=== PATIENT | female | born 1955 | race Caucasian/White ===

== ENCOUNTER → 2016-08-01 | Outpatient (CLI) | payer BC ==
[~2016-08-01] MED LIST: FLVHFA110 INH; HYDC25 PO; LEVO125T7 PO; MCR125 PO; MCRK20 PO; METO50TA7 PO; MOME50SP5 NAE
--- NOTE | 2016-08-01 16:25 | MAMMOGRAPHY REPORT ---
BILATERAL DIGITAL SCREENING MAMMOGRAM TOMOSYNTHESIS WITH CAD: 08/01/2016 TECHNIQUE: Breast tomosynthesis in addition to standard 2D mammography was performed. Current study was also evaluated with a Computer Aided Detection (CAD) system. COMPARISON: Comparison is made to exams dated: 07/30/2015 mammogram, 07/29/2014 mammogram, 05/31/2012 mammogram, 05/26/2011 mammogram, 06/11/2013 mammogram, and 05/20/2010 mammogram - [facility]. BREAST COMPOSITION: There are scattered areas of fibroglandular density in both breasts. FINDINGS: No suspicious masses, calcifications, or areas of architectural distortion are noted in e ither breast. There has been no significant interval change compared to prior exams. IMPRESSION: ACR BI-RADS CATEGORY 1: NEGATIVE There is no mammographic evidence of malignancy. A 1 year screening mammogram is recommended. The p atient will receive written notification of the results. Approximately 10% of breast cancers are not detected with mammography. A negative mammographic repor t should not delay biopsy if a clinically suggestive mass is present. Mariel Najera M.D. /:08/01/2016 14:50:53 [place] Counselor: Isabela MARSH)(Tobias), [facility] letter sent: Normal 1/2 BI-RADS Code: ACR BI-RADS Category 1: Negative
== END | disposition home or self-care (01) ==
LOC: C.MAMM 09:40
PROVIDERS: ATTEND Family Medicine
DX: Z12.31 Encounter for screening mammogram for malignant neoplasm of breast (principal)

== ENCOUNTER → 2017-08-02 | Outpatient (CLI) | payer OTHER, BC ==
[~2017-08-02] MED LIST changes: -METO50TA7 PO; +METO50TA8 PO
--- NOTE | 2017-08-02 15:21 | MAMMOGRAPHY REPORT ---
BILATERAL DIGITAL SCREENING MAMMOGRAM TOMOSYNTHESIS WITH CAD: 08/02/2017 CLINICAL HISTORY: Routine screening examination. TECHNIQUE: Breast tomosynthesis in addition to standard 2D mammography was performed. Current study was also evaluated with a Computer Aided Detection (CAD) system. COMPARISON: Comparison is made to exams dated: 08/01/2016 mammogram, 07/30/2015 mammogram, 07/29/2014 m ammogram, 06/11/2013 mammogram, 05/31/2012 mammogram, and 05/26/2011 mammogram - [facility]. BREAST COMPOSITION: There are scattered areas of fibroglandular density in both breasts. FINDINGS: There are possible faint microcalcifications in the upper outer posterior left breast, for which additional spot magnification views are recommended. There are stable postsurgical changes in the right upper outer quadrant posteriorly with linear metal lic densities remaining in place. No other suspicious mass, architectural distortion or cluster of mi crocalcifications is seen. IMPRESSION: ACR BI-RADS CATEGORY 0: INCOMPLETE EVALUATION: NEED ADDITIONAL IMAGING EVALUATION The possible faint microcalcifications in the left upper outer breast need additional evaluation. The patient will be called to schedule an appointment. Approximately 10% of breast cancers are not detected with mammography. A negative mammographic report should not delay biopsy if a clinically suggestive mass is present. Krystina Adams M.D. ay/:08/02/2017 11:00:11 Slipper Maker: Lacey MARSH)(Tobias), [facility] letter sent: Addl Imaging 0 BI-RADS Code: ACR BI-RADS Category 0: Incomplete Evaluation: Need Additional Imaging Evaluation
== END | disposition home or self-care (01) ==
LOC: C.MAMM 09:36
PROVIDERS: ATTEND Family Medicine
DX: Z12.31 Encounter for screening mammogram for malignant neoplasm of breast (principal); R92.8 Other abnormal and inconclusive findings on diagnostic imaging of breast

== ENCOUNTER → 2017-08-16 | Outpatient (CLI) | payer OTHER, BC ==
--- NOTE | 2017-08-16 15:57 | MAMMOGRAPHY REPORT ---
UNILATERAL LEFT DIGITAL DIAGNOSTIC MAMMOGRAM: 08/16/2017 CLINICAL HISTORY: Callback from screening mammogram for left breast calcifications. TECHNIQUE: Spot magnification left CC and ML views were obtained. COMPARISON: Comparison is made to exams dated: 08/02/2017 mammogram, 08/01/2016 mammogram, 07/30/2015 m ammogram, 07/29/2014 mammogram, 06/11/2013 mammogram, and 05/31/2012 mammogram - [facility]. BREAST COMPOSITION: There are scattered areas of fibroglandular density in the left breast. FINDINGS: Spot magnification views of the left breast demonstrate faint loosely grouped calcificatio ns within the left upper outer quadrant, best seen on the cc view. When compared to prior exams, the calcifications do not appear significantly changed compared to the 2016 and 2015 exams and may also be stable compared to older prior exams including the 2012 exam although it is difficult to make an a ccurate comparison due to technical differences. The calcifications are probably benign and follow-up spot magnification views are recommended in 6 months. IMPRESSION: ACR-BI-RADS CATEGORY 3: PROBABLY BENIGN Faint loosely grouped punctate calcifications within the left upper outer quadrant are likely stable dating back to at least the 2015 exam and are probably benign. Recommend follow-up diagnostic tomosy nthesis mammograms of the left breast in 6 months to confirm stability on spot magnification views. The patient has been verbally notified of the results. Approximately 10% of breast cancers are not detected with mammography. A negative mammographic report should not delay biopsy if a clinically suggestive mass is present. Mariel Najera M.D. ah/:08/16/2017 11:41:08 Gel Coater: Rahel KAUR(Munira)(M), [facility] letter sent: Follow Up Recommended 3 BI-RADS Code: ACR-BI-RADS Category 3: Probably Benign
== END | disposition home or self-care (01) ==
LOC: C.MAMM 10:41
PROVIDERS: ATTEND Family Medicine
DX: R92.8 Other abnormal and inconclusive findings on diagnostic imaging of breast (principal); R92.1 Mammographic calcification found on diagnostic imaging of breast

== ENCOUNTER 2023-07-28 10:29 | Inpatient (IN) ==
--- NOTE | 2023-07-28 11:06 | Emergency Department Note ---
Impression & Plan Sepsis due to urinary tract infection, Fever, Atrial tachycardia ED Provider Note NAME: MOUNIKA SHEPPARD AGE: 68 SEX: F : 1955 ARRIVES VIA: Walk-In INFORMANT: Patient ED PROVIDER(S): Escobar Mccann DO CHIEF COMPLAINT: fever and shakes HPI: Patient is a 68-year-old female immune compromised on methotrexate that presents to the ER for dysuria, urgency, and overflow and incontinence. Patient denies any headache or change in vision. Admits to diffuse shaking chills. She was prescribed Macrobid yesterday. Symptoms have been getting worse. Feeling hot and cold. Does have lower abdominal pain. Feels very nausea but no vomiting. Additional history obtained from who notes that she is taking Macrobid as an antibiotic. ADDITIONAL HISTORY OBTAINED: Per HPI Chronic Medical/Social Conditions Affecting Care: Per HPI PAST MEDICAL HISTORY:See Below PAST SURGICAL HISTORY:See Below FAMILY HISTORY:See Below SOCIAL HISTORY:See Below HOME MEDICATIONS:See Below ALLERGIES:See Below VITALS:See Below PHYSICAL EXAMINATION: GENERAL: Sitting up in bed, alert, well appearing, well nourished, no distress, non-toxic EYE EXAM: normal conjunctiva. OROPHARYNX: mucous membranes are moist NECK: supple, no nuchal rigidity, no adenopathy, non-tender LUNGS: Clear to auscultation. Normal chest wall mechanics HEART: no murmurs, S1 normal and S2 normal ABDOMEN: abdomen soft, non-tender, normo-active bowel sounds, no masses, no rebound or guarding. UPPER EXTREMITIES: upper extremities are grossly normal. LOWER EXTREMITIES: No pitting edema. NEURO EXAM: Normal sensorium, cranial nerves II-XII grossly intact, normal speech, no gross weakness of arms, no gross weakness of legs. MEDICAL DECISION MAKING: Patient is a 68-year-old female who presents the ER for urinary symptoms. Upon arrival she is found to be febrile and tachycardic with a heart rate in the 140s. IV was established blood work is obtained. Labs show no significant leukocytosis or anemia. BMP was fairly unremarkable. Slightly elevated lactate. Magnesium at 1.3. LFTs was unremarkable. Pro-Jesus 1.6. UA was not obtained upon admission. It did eventually result and is unremarkable. Patient will likely need additional workup as that has finally resulted and possibly CT as she was febrile tacky with lower pelvic symptoms. Chest x-ray was unremarkable. Patient was covered with IV antibiotics which was IV cefepime as well as oral Tylenol. Repeat lactate trended down from 2.2 to 1.8. Consults/Care Managements Discussions: Per [facility] Triage Nursing notes reviewed. Limited review of prior medical records performed Vital Signs: reviewed and remarkable for febrile and tachy Differential diagnosis: Differential diagnosis includes etiologies such as sepsis, UTI, pneumonia, metabolic, electrolyte abnormalities, cardiac sources, intracerebral event, toxicologic, neurological, as well as others were entertained. ER treatment provided: See below Diagnostics interpreted by me include EKG and cardiac monitoring as listed below: -Cardiac Monitoring: An order was placed for continuous cardiac monitoring. The monitor shows a rate of [] with [] rhythm. -ECG: Sinus rhythm rate of 110 Normal axis PVCs QTc [address] wave changes in the lateral leads T wave inversions in the inferior leads -Laboratory studies:Interpreted by me as stated above in MDM and shown below. Imaging studies: Xrays: As interpreted by me: Portable AP upright 1 view of the chest shows no focal infiltrate CTs show: none Procedures:none Critical Care: None Past Med/Surg History Medical History Sepsis due to urinary tract infection IBS (irritable bowel syndrome) possible. History of COVID-06 June 2021 : mild cold symptoms, loss of taste & smell, fatigue. History of anesthesia reaction difficulty waking/low BP Hypothyroidism Glaucoma bilt eyes Hypertension Heart palpitations Asthma inhaler prn Hives of unknown origin hx - no recent problems Rheumatoid arthritis Surgical History Hx of left cataract extraction Hx of oral surgery dental implant/post insertion (09/2021) History of dilatation and curettage (~2019) History of lumpectomy of right breast History of left breast biopsy benign History of right breast biopsy benign History of gynecologic surgery D&E History of bilateral carpal tunnel release History of colonoscopy History of tooth extraction Family History Father Renal failure Colorectal cancer Family history of diabetes mellitus Mother Non-Hodgkin lymphoma Family history of diabetes mellitus Aunt Breast cancer maternal Other No family history of adverse response to anesthesia Denies family history of Ovarian cancer Social History Smoking Status: Never smoker Second Hand Exposure: Yes (father and smoked); Do You Dip or Chew Tobacco: No; Hx Alcohol Use: Yes Alcohol type: wine Hx Substance Use: No Preferred Language: [place] Islander Communication Ability: Effective Stereo Compiler Required: No Beliefs That Will Affect Care: None Current Living Situation: Spouse Feels Safe at Home: Yes Assistive Devices: Glasses Allergies Allergies Allergy/AdvReac Type Severity Reaction Status Date / Time Penicillins Allergy Mild Rash Verified 07/28/23 13:32 sulfamethoxazole Allergy Mild rash Verified 07/28/23 13:32 trimethoprim Allergy Mild rash Verified 07/28/23 13:32 NELLI Inhibitors AdvReac Mild cough Verified 07/28/23 13:32 Home Meds Home Medications Medication Instructions Recorded Confirmed cetirizine 10 mg tablet (Zyrtec) 10 mg PO DAILY PRN Allergy Symptoms 02/24/18 07/28/23 folic acid 1 mg tablet 1 mg PO [id number] 02/24/18 07/28/23 methotrexate sodium 2.5 mg tablet 15 mg PO WK 02/24/18 07/28/23 metoprolol succinate 50 mg 50 mg PO QAM 02/24/18 07/28/23 tablet,extended release 24 hr cholecalciferol (vitamin D3) 25 25 mcg PO QAM 02/15/22 07/28/23 mcg (1,000 unit) tablet (Vitamin D3) [id number] C 250 2 tab PO QAM 02/15/22 07/28/23 mg-herbal no.124 11.66 mg chewable tablet (Airborne Gummy) levothyroxine 100 mcg tablet 100 mcg PO QAM 07/28/23 07/28/23 nitrofurantoin 100 mg PO BID 07/28/23 07/28/23 monohydrate/macrocrystals 100 mg capsule omega [id number]-fish oil 900 1 cap PO DAILY 07/28/23 07/28/23 mg-1,400 mg capsule,delayed release Results & Data (ED) Vital Signs Vital Signs - 24 hr 07/28/23 10:38 07/28/23 12:43 07/28/23 12:43 Temperature 37.8 C H Temperature Source Oral Pulse Rate 129 H 118 H Pulse Rate [Right Finger] 114 H Pulse Rate from SpO2 Sensor Respiratory Rate 16 22 16 Respiratory Effort / Characteristics Non-Labored Non-Labored Respiratory Depth Normal Normal Blood Pressure 163/82 H Blood Pressure [Right Arm] 127/86 Blood Pressure Mean 109 Blood Pressure Mean [Right Arm] 99 Pulse Oximetry 97 97 97 Oxygen Delivery Method Room Air Room Air Room Air Sepsis Recent Fever Within 48 Hours No Sepsis New/Unexplained Change in Mental Status N/A Sepsis Action Taken by Nursing No Action Required 07/28/23 12:45 07/28/23 12:46 07/28/23 12:52 Temperature Temperature Source Pulse Rate 116 H 109 H Pulse Rate [Right Finger] Pulse Rate from SpO2 Sensor Respiratory Rate 20 Respiratory Effort / Characteristics Respiratory Depth Blood Pressure 127/86 Blood Pressure [Right Arm] Blood Pressure Mean 89 Blood Pressure Mean [Right Arm] Pulse Oximetry Oxygen Delivery Method Sepsis Recent Fever Within 48 Hours Sepsis New/Unexplained Change in Mental Status Sepsis Action Taken by Nursing 07/28/23 13:00 Temperature Temperature Source Pulse Rate 112 H Pulse Rate [Right Finger] Pulse Rate from SpO2 Sensor 96 H Respiratory Rate 23 Respiratory Effort / Characteristics Respiratory Depth Blood Pressure Blood Pressure [Right Arm] Blood Pressure Mean Blood Pressure Mean [Right Arm] Pulse Oximetry 96 Oxygen Delivery Method Sepsis Recent Fever Within 48 Hours Sepsis New/Unexplained Change in Mental Status Sepsis Action Taken by Nursing Laboratory Data 07/28/23 11:25 07/28/23 11:25 Lab Results 07/28/23 07/28/23 Range/Units 11:22 11:25 WBC 9.48 (4.8-10.8) K/ul RBC 4.20 (4.20-5.40) M/uL Hgb 13.1 (12.0-16.0) g/dl Hct 37.9 (37.0-47.0) % MCV 90.2 (80.0-100.0) fL MCH 31.2 (25.0-34.0) pg MCHC 34.6 (32.0-36.0) g/dL RDW Std Deviation 45.3 (36.4-46.3) fL RDW Coeff of Amy 14.0 (11.5-14.5) % Plt Count 140 (130-400) K/uL MPV 10.1 (9.4-12.4) fL Immature Gran % (Auto) 0.6 % Neut % (Auto) 92.2 % Lymph % (Auto) 1.8 % Ralls % (Auto) 4.7 % Eos % (Auto) 0.4 % Baso % (Auto) 0.3 % Neut # (Auto) 8.73 H (1.40-6.50) K/uL Lymph # (Auto) 0.17 L (1.20-3.40) K/uL Ralls # (Auto) 0.45 (0.11-0.59) K/uL Eos # (Auto) 0.04 (0.00-0.50) K/uL Baso # (Auto) 0.03 (0.00-0.20) K/uL Immature Gran # (Auto) 0.06 (0.01-0.20) K/uL Sodium 136 (136-145) mmol/L Potassium 3.3 L (3.5-5.1) mmol/L Chloride 100 (98-107) mmol/L Carbon Dioxide 28 (21-32) mmol/L Anion Gap 8 (3-11) BUN 13 (6-23) mg/dl Creatinine 0.62 (0.6-1.2) mg/dl Est Cr Clr Drug Dosing 89.0 ml/min Est GFR ( Amer) 106.6 ml/min Est GFR (Non-Af Amer) 92.0 ml/min BUN/Creatinine Ratio 21.0 H (10-20) Glucose 204 H (70-99(Fasting)) mg/dl Lactate 2.2 H* (0.4-2.0) mmol/L Calcium 8.8 (8.6-10.3) mg/dl Magnesium 1.3 L (1.7-2.4) mg/dl Total Bilirubin 1.8 H (0.2-1.0) mg/dl Direct Bilirubin 0.3 H (0-0.2) mg/dl AST 17 (13-39) U/L ALT 14 (7-52) U/L Alkaline Phosphatase 74 (34-104) U/L Troponin I High Sens 6.1 (0-14) pg/ml Total Protein 6.9 (6.0-8.3) gm/dl Albumin 4.3 (3.4-5.0) gm/dl Procalcitonin 1.68 H (0-0.5) ng/ml Adenovirus (PCR) Not Detected (NotDetected) B. pertussis DNA (PCR) Not Detected (NotDetected) B.parapertussis DNA PCR Not Detected (NotDetected) C. pneumoniae DNA (PCR) Not Detected (NotDetected) Coronavirus OC43 (PCR) Not Detected (NotDetected) Coronavirus HKU1 (PCR) Not Detected (NotDetected) Coronavirus 229E (PCR) Not Detected (NotDetected) SARS-CoV-2 (PCR) Not Detected (NotDetected) Coronavirus NL63 (PCR) Not Detected (NotDetected) Human Metapneumovir PCR Not Detected (NotDetected) Influenza Type A (PCR) Not Detected (NotDetected) Influenza Type B (PCR) Not Detected (NotDetected) M. pneumoniae (PCR) Not Detected (NotDetected) Parainfluenza 1 (PCR) Not Detected (NotDetected) Parainfluenza 2 (PCR) Not Detected (NotDetected) Parainfluenza 3 (PCR) Not Detected (NotDetected) Parainfluenza 4 (PCR) Not Detected (NotDetected) RSV (PCR) Not Detected (NotDetected) Entero/Rhino (PCR) Not Detected (NotDetected) Administered Medications Discontinued Medications Acetaminophen (Acetaminophen 325 Mg Tab) 650 mg PO NOW STA Stop: 07/28/23 11:07 Last Admin: 07/28/23 12:31 Dose: 650 mg Documented By: SONALI Cefepime HCl (Maxipime) 2,000 mg in 20 mls @ 5 mls/min IV NOW STA; Protocol Stop: 07/28/23 11:05 Last Admin: 07/28/23 12:32 Dose: 5 mls/min Documented By: SONALI Imaging Data Radiologist's Impression: Chest X-Ray 07/28/23 10:47 XR chest 1V portable HISTORY: 68 years-old Female Sepsis acute urinary tract infection COMPARISON: None TECHNIQUE: AP view the chest FINDINGS: Cardiomediastinal and hilar silhouettes are within normal limits. No pneumothorax, pleural effusion or airspace consolidation. Bones appear grossly intact. IMPRESSION: No acute process. ACT 112: Negative or not required by law. The above report was generated using voice recognition software. It may contain grammatical, syntax or spelling errors. Electronically signed by: Boaz Kumar M.D. 07/28/2023 11:28 AM Discharge Plan Visit Data Chief Complaint: Illness Stated Complaint: CHEST PRESSURE, CHILLS, NAUSEA ED Provider: Escobar Mccann Discharge Problem: Sepsis due to urinary tract infection, Fever, Atrial tachycardia Patient Disposition: Admitted As Inpatient Discharge Instructions Interventions: ED Discharge Assessment Last Done: 07/28/23 15:05 Discharge Problem: Fever Qualifiers: Fever type: unspecified Qualified Code(s): R50.9 - Fever, unspecified
--- NOTE | 2023-07-28 11:29 | XRay Report ---
XR chest 1V portable HISTORY: 68 years-old Female Sepsis acute urinary tract infection COMPARISON: None TECHNIQUE: AP view the chest FINDINGS: Cardiomediastinal and hilar silhouettes are within normal limits. No pneumothorax, pleural effusion o r airspace consolidation. Bones appear grossly intact. IMPRESSION: No acute process. ACT 112: Negative or not required by law. The above report was generated using voice recognition software. It may contain grammatical, syntax o r spelling errors. Electronically signed by: Boaz Kumar M.D. 07/28/2023 11:28 AM
[2023-07-28 12:29] LABS: Adenovirus PCR Not Detected (NotDetected); Bordetella parapertussis PCR Not Detected (NotDetected); Bordetella pertussis PCR Not Detected (NotDetected); Chlamydia pneumoniae PCR Not Detected (NotDetected); Coronavirus 229E PCR Not Detected (NotDetected); Coronavirus CoV-2 (COVID19)PCR Not Detected (NotDetected); Coronavirus HKU1 PCR Not Detected (NotDetected); Coronavirus NL63 PCR Not Detected (NotDetected); Coronavirus OC43PCR Not Detected (NotDetected); Human Metapneumovirus PCR Not Detected (NotDetected); Influenza A PCR Not Detected (NotDetected); Influenza B PCR Not Detected (NotDetected); Mycoplasma pneumoniae PCR Not Detected (NotDetected); Parainfluenza Virus 1 PCR Not Detected (NotDetected); Parainfluenza Virus 2 PCR Not Detected (NotDetected); Parainfluenza Virus 3 PCR Not Detected (NotDetected); Parainfluenza Virus 4 PCR Not Detected (NotDetected); Respiratory Syncytial VirusPCR Not Detected (NotDetected); Rhinovirus/Enterovirus PCR Not Detected (NotDetected)
[2023-07-28] MEDS: ACETAMINOPHEN 325 MG TAB PO STA (12:31)
[2023-07-28] MEDS: CEFEPIME 2,000 MG/20 ML VIAL IV STA (12:32)
[2023-07-28 12:52] LABS: Albumin Level 4.3 gm/dl (3.4-5.0); Bilirubin Direct 0.3 mg/dl (0-0.2); Bilirubin,Total 1.8 mg/dl (0.2-1.0); Calcium 8.8 mg/dl (8.6-10.3); Est GFR (African American) 106.6 ml/min; Magnesium 1.3 mg/dl (1.7-2.4); Potassium 3.3 mmol/L (3.5-5.1); Total Protein 6.9 gm/dl (6.0-8.3)
[2023-07-28 12:57] LABS: Troponin I High Sensitivity 6.1 pg/ml (0-14)
[2023-07-28 13:05] LABS: Hematocrit (blood only) 37.9 % (37.0-47.0); Hemoglobin 13.1 g/dl (12.0-16.0); Mean Corpuscular Hemoglobin 31.2 pg (25.0-34.0); Mean Corpuscular Hgb Conc 34.6 g/dL (32.0-36.0); Mean Corpuscular Volume 90.2 fL (80.0-100.0); Mean Platelet Volume 10.1 fL (9.4-12.4); Platelet Count 140 K/uL (130-400); RDW Standard Deviation 45.3 fL (36.4-46.3); White Blood Count 9.48 K/ul (4.8-10.8)
[2023-07-28] MEDS ORDERED: ONDANSETRON INJ 2 MG/ML 2 ML VIAL IV PRN (13:14)
[2023-07-28] MEDS ORDERED: MAGNESIUM HYDROXIDE SUSP 30 ML UDC PO PRN (13:14)
[2023-07-28] MEDS ORDERED: ALUMINUM/MAGNESIUM SUSP 30 ML UDC PO PRN (13:14)
[2023-07-28] MEDS ORDERED: POLYETHYLENE (MIRALAX) 17 GM PACK PO PRN (13:14)
[2023-07-28 13:17] LABS: Basophils # (auto) 0.03 K/uL (0.00-0.20); Basophils % (auto) 0.3 %; Eosinophils # (auto) 0.04 K/uL (0.00-0.50); Eosinophils % (auto) 0.4 %; Immature Granulocytes # (auto) 0.06 K/uL (0.01-0.20); Immature Granulocytes % (auto) 0.6 %; Lymphocytes # (auto) 0.17 K/uL (1.20-3.40); Lymphocytes % (auto) 1.8 %; Monocytes # (auto) 0.45 K/uL (0.11-0.59); Monocytes % (auto) 4.7 %; Neutrophils # (auto) 8.73 K/uL (1.40-6.50); Neutrophils % (auto) 92.2 %
--- NOTE | 2023-07-28 13:26 | History & Physical Report ---
Date of Service July 28, 2023 Assessment & Plan (1) Sepsis due to urinary tract infection: (2) Hypomagnesemia: (3) Hypocalcemia: (4) Hypertension: (5) Hypokalemia: (6) Rheumatoid arthritis: (7) Diabetes mellitus type 2, noninsulin dependent: (8) TAMAR (obstructive sleep apnea): (9) Hypothyroidism: Plan Ms. Hardy is a 68 year old female that presents to the ED with reports of feeling nauseated and having chills; felt like she had a fever. Her found her sitting in the shower trying to get 'warmed up'. She did not eat anything this morning. She only took her thyroid medication today. She went to [facility] yesterday with signs and symptoms of urinary tract infection was prescribed Macrobid for 7 days. She took her Macrobid last night and went to bed fine. This morning, she reports feeling nauseous, no vomit ing.Historically, she has been experiencing incontinence and saw UroGyn at [facility] and proceeded with a rectal and bladder prolapse. Over the last 2-3 weeks, she notices that her symptoms have become worse. She reports more incontinence with short walking . Upon arrival to the ED she was tachycardic and febrile with heart rate up to 122. She received fluid resuscitation 2 L with response heart rate down to 110. Additional past medical history includes rheumatoid arthritis (diagnosed 2017; takes Methotrexate), HTN, hypothyroidism .She drinks one cup of coffee per day. NO history of heart attack or stroke. She does admit that she does not follow her doctors recommendations too well.In the ED hypok+ 3.3, hypomag 1.3, bio fire negative. Blood cultures and urinalysis pending. Lactate 2.2, WBC 9.48. ECG NSR with Borderline criteria for Inferior infarct are now Present compared with ECG in 2019. T wave inversion now evident in Anterior leads. Patient is presenting with urosepsis symptoms. She does meet sepsis criteria with tachycardia, fevers, elevated lactate and procal levels. Will place on IV antibiotics and adjust based on urine culture and blood culture. Consider abdominal/pelvis CT if no improvement. Patient reports significant personal stress and she does have complaints of mild intermittent anterior chest wall pressure with left shoulder radiation. Will obtain a troponin to initiate cardiac workup. ECG NSR with Borderline criteria for Inferior infarct are now Present compared with ECG in 2019. T wave inversion now evident in Anterior leads Patient appears normal sinus rhythm on monitor however I can appreciate an S3/S4 on auscultation; will repeat ECG; ECG indicates . Additionally replace electrolyte imbalance, patient serum glucose this morning was 204 without breakfast and A1c yesterday was 7.9. Patient does not take any antidiabetic medications. Will place on a sliding scale coverage while here with diabetes e ducator consult. Urosepsis: Acute seen as outpatient 07/27 and started on Macrobid, last dose scheduled to be 08/03 Meets sepsis criteria with tachycardia, febrile, elevated lactate No leukocytosis; lactate 2.2 trended down to 1.8 with resuscitation Procalcitonin elevated 1.68 suggestive of hyper inflammatory phase of sepsis, along with lactate Blood cultures pendingL Received 2LNSB in ED; after second liter will place on gentle maint. fluids. Was started on Cefepime in ED; switch to Rocephin and adjust based on culture results Did receive a dose of antibiotics prior to urine culture being obtained If no improvement consider abdomen/pelvis CT Electrolyte abnormalities: Acute Hypokalemia; Serum K+ 3.3; replete with 40 mEq p.o. Hypomagnesemia; serum Mg+1.3; will replace with 4 G IV and check with AM labs Hypocalcemia; serum Calcium 7.7; albumin 4.3; replace with 1G Ca+ Gluconate and recheck in AM. Check Vitamin D level. Diabetes Mellitus: Chronic Last A1C : 7.9 Was doing diet modifications for months, and has lost weight was on Glipizide for a few months but stopped taking it Place on SSI and arrange for art educator HTN: Chronic Takes metoprolol; continue Does have S3 appreciated on exam; does not report palpitations ECG suggestive of new inferior changes compared to 2019 anterior chest pain has resolved; troponin negative will obtain repeat ECG Rheumatoid arthritis: Chronic Follows with Dr. Qureshi with rheumatology Takes methotrexate every Monday; taken today; will hold moving forward due to sepsis and immunocompromised 07/27/23; LFTs; AST 19, ALT 17, AlkPhos 89 Hypothyroidism: Chronic Takes levothyroxine; continue Last TSH 04/20/23: 3.32; will obtain one while here. TAMAR: Chronic Just picked up her CPAP yesterday after her recent sleep study Arrange for CPAP here in hospital Disposition: PCP: Dr. Spencer Code Status: Full Code VTE Prophylaxis: Teds/SCDs for now I spent a total of 88 minutes coordinating, documenting, and providing care for this patient excluding time spent in the performance of separately billed services. All of the aforementioned completed while collaborating with the assigned attending physician for a full treatment plan. Please see their addendum for further details. History of Present Illness Chief Complaint: dysuria Primary Care Provider: Eric Spencer DO Ms. Hardy is a 68 year old female that presents to the ED with reports of feeling nauseated and having chills; felt like she had a fever with some chest pressure with radiation into her left shoulder. Her found her sitting in the shower trying to get 'warmed up'. She did not eat anything this morning. She only took her thyroid medication today. She went to [facility] yesterday with signs and symptoms of urinary tract infection was prescribed Macrobid for 7 days. She took her Macrobid last night and went to bed fine. This morning, she reports feeling nauseous, no vomiting. Historically, she has been experiencing incontinence and saw UroGyn at [facility] and proceeded with a rectal and bladder prolapse 'tack up' in Apr 2023. After the procedure, she had an indwelling catheter for three days. She was frustrated with her slow improvement. Over the last 2-3 weeks, she notices that her symptoms have become worse. She reports more incontinence with short walking . Upon arrival to the ED she was tachycardic and febrile with heart rate up to 122. She received fluid resuscitation 2 L with response heart rate down to 110. Additional past medical history includes rheumatoid arthritis (diagnosed 2016; takes Methotrexate), HTN, hypothyroidism .She drinks one cup of coffee per day. NO history of heart attack or stroke. She does admit that she does not follow her doctors recommendations too well. In the ED hypok+ 3.3, hypomag 1.3, bio fire negative. Blood cultures and urinalysis pending. Lactate 2.2, WBC 9.48. ECG NSR with Borderline criteria for Inferior infarct are now Present compared with ECG in 2019. T wave inversion now evident in Anterior leads. Reviewed documentation as an outpatient and a urine culture was sent yesterday however no results returned as of yet. Pt denies PRESTON, dizziness, SOB, palpitations, abdominal pain, tenderness, recent falls or trauma. On examination, Pt AAOx4 and able to answer questions appropriately, CN II-XII grossly intact, lung sounds CTA, (+) lower abdomen tenderness, euvolemic on exam. Patient is presenting with urosepsis symptoms. She does meet sepsis criteria with tachycardia, fevers, elevated lactate and procal levels. Will place on IV antibiotics and adjust based on urine culture and blood culture. Consider abdominal/pelvis CT if no improvement. Patient reports significant personal stress and she does have complaints of mild intermittent anterior chest wall pressure with left shoulder radiation. Will obtain a troponin to initiate cardiac workup. ECG NSR with Borderline criteria for Inferior infarct are now Present compared with ECG in 2019. T wave inversion now evident in Anterior leads Patient appears normal sinus rhythm on monitor however I can appreciate an S3/S4 on auscultation; will repeat ECG; ECG indicates . Additionally replace electrolyte imbalance, patient serum glucose this morning was 204 without breakfast and A1c yesterday was 7.9. Patient does not take any antidiabetic medications. Will place on a sliding scale coverage while here with art educator consult. Patient will be admitted for further evaluation and management. Please see A/P for further details. Allergies Allergy/AdvReac Type Severity Reaction Status Date / Time Penicillins Allergy Mild Rash Verified 07/28/23 13:32 sulfamethoxazole Allergy Mild rash Verified 07/28/23 13:32 trimethoprim Allergy Mild rash Verified 07/28/23 13:32 NELLI Inhibitors AdvReac Mild cough Verified 07/28/23 13:32 Home Medications Medication Instructions Recorded Confirmed Type cetirizine 10 mg tablet (Zyrtec) 10 mg PO DAILY PRN Allergy Symptoms 02/24/18 07/28/23 History folic acid 1 mg tablet 1 mg PO [id number] 02/24/18 07/28/23 History methotrexate sodium 2.5 mg tablet 15 mg PO WK 02/24/18 07/28/23 History metoprolol succinate 50 mg 50 mg PO QAM 02/24/18 07/28/23 History tablet,extended release 24 hr cholecalciferol (vitamin D3) 25 25 mcg PO QAM 02/15/22 07/28/23 History mcg (1,000 unit) tablet (Vitamin D3) [id number] C 250 2 tab PO QAM 02/15/22 07/28/23 History mg-herbal no.124 11.66 mg chewable tablet (Airborne Gummy) levothyroxine 100 mcg tablet 100 mcg PO QAM 07/28/23 07/28/23 History nitrofurantoin 100 mg PO BID 07/28/23 07/28/23 History monohydrate/macrocrystals 100 mg capsule omega 4-iar-ymo-fish oil 900 1 cap PO DAILY 07/28/23 07/28/23 History mg-1,400 mg capsule,delayed release Past Med/Surg History Medical History (Updated 07/28/23 @ 17:38 by ANALI Callahan) Diabetes mellitus type 2, noninsulin dependent Hypokalemia Hypomagnesemia Hypocalcemia TAMAR (obstructive sleep apnea) Sepsis due to urinary tract infection IBS (irritable bowel syndrome) possible. History of COVID-06 June 2021 : mild cold symptoms, loss of taste & smell, fatigue. History of anesthesia reaction difficulty waking/low BP Hypothyroidism Glaucoma bilt eyes Hypertension Heart palpitations Asthma inhaler prn Hives of unknown origin hx - no recent problems Rheumatoid arthritis Surgical History Hx of left cataract extraction Hx of oral surgery dental implant/post insertion (09/2021) History of dilatation and curettage (~2018) History of lumpectomy of right breast History of left breast biopsy benign History of right breast biopsy benign History of gynecologic surgery D&E History of bilateral carpal tunnel release History of colonoscopy History of tooth extraction Family History Father Renal failure Colorectal cancer Family history of diabetes mellitus Mother Non-Hodgkin lymphoma Family history of diabetes mellitus Aunt Breast cancer maternal Other No family history of adverse response to anesthesia Denies family history of Ovarian cancer Social History Smoking Status: Never smoker Second Hand Exposure: Yes (father and smoked); Do You Dip or Chew Tobacco: No; Hx Alcohol Use: Yes Alcohol type: wine Hx Substance Use: No Preferred Language: Greek Communication Ability: Effective 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 Beliefs That Will Affect Care: None Current Living Situation: Spouse Feels Safe at Home: Yes Assistive Devices: Glasses Review of Systems Review of Systems: Neuro: (-) Falls, trauma, slurred speech HEENT: (-) PRESTON, dizziness, dysphagia, visual or auditory changes CV: (-) CP, palpitations, swelling Resp: (-) SOB GI: (-) appetite changes, N/V/D, bowel changes : (-) urinary changes Skin: (-) rashes Psych: (-) anxiety, depression Physical Exam Physical Exam: Neuro: AAOx4, PERRLA, no aphagia, memory changes, CNII-XII grossly intact HEENT: head normocephalic, moist mucus membranes CV: S1/S2, (-) M/G/R, (-) edema, cap refill < 3 seconds Resp: Lungs CTA in all alvarenga. On RA GI: Abdomen LLQ/RLQ tender to palptation, S/ND, Ax4 bowel sounds, (-) CVA tenderness Musculoskeletal: 5/5 B/L UE strength, 5/5 B/L LE strength. No gait disturbance Skin: (-) rashes , (-) erythema. Psych: euthymic mood Results & Data Results & Data Vital Signs (Past 12 Hours) Vital Signs Temp Pulse Pulse Resp BP BP Pulse Ox 07/28/23 12:52 109 H 07/28/23 12:43 118 H 16 97 07/28/23 12:43 114 H 22 127/86 97 07/28/23 10:38 37.8 C H 129 H 16 163/82 H 97 O2 Del Method 07/28/23 12:52 07/28/23 12:43 Room Air 07/28/23 12:43 Room Air 07/28/23 10:38 Room Air Laboratory Results Short CBC 07/28/23 Range/Units 11:25 WBC 9.48 (4.8-10.8) K/ul Hgb 13.1 (12.0-16.0) g/dl Hct 37.9 (37.0-47.0) % Plt Count 140 (130-400) K/uL BMP 07/28/23 11:25 Sodium 136 Potassium 3.3 L Chloride 100 Carbon Dioxide 28 BUN 13 Creatinine 0.62 Glucose 204 H Calcium 8.8 Liver Function 07/28/23 Range/Units 11:25 Total Bilirubin 1.8 H (0.2-1.0) mg/dl Direct Bilirubin 0.3 H (0-0.2) mg/dl AST 17 (13-39) U/L ALT 14 (7-52) U/L Alkaline Phosphatase 74 (34-104) U/L Albumin 4.3 (3.4-5.0) gm/dl Diagnostic Findings Chest X-Ray 07/28/23 10:47 XR chest 1V portable HISTORY: 68 years-old Female Sepsis acute urinary tract infection COMPARISON: None TECHNIQUE: AP view the chest FINDINGS: Cardiomediastinal and hilar silhouettes are within normal limits. No pneumothorax, pleural effusion or airspace consolidation. Bones appear grossly intact. IMPRESSION: No acute process. ACT 112: Negative or not required by law. The above report was generated using voice recognition software. It may contain grammatical, syntax or spelling errors. Electronically signed by: Boaz Kumar M.D. 07/28/2023 11:28 AM Code Status & VTE Plan Code Status Full code in the event of cardiac respiratory arrest VTE Prophylaxis Plan VTE Prophylaxis will be ordered: Yes Supervising Physician Co-Signing Physician Notes I have seen and examined the patient and have discussed the case with the provider above. I have reviewed the advanced practitioner's documentation, and I agree with, and take responsibility for that plan of care. 68-year-old female presents with fevers and chills with clinical picture consistent with sepsis possibly secondary to urinary tract infection. UTI symptoms including urinary urgency have been ongoing for the past 3 weeks with a worsening for the past 24 hours. She was seen in urgent care yesterday with urine culture performed but still pending. She was resuscitated in the ER and appears hemodynamically stable and improved. She is in no acute distress. She does have a history of rheumatoid arthritis and is on methotrexate for this. No recent rheumatoid flare reported. History of bladder tacking in April 2023 as noted above. On exam she is obese, mentating clearly and oxygenating well on room air. She does have some mild suprapubic tenderness but otherwise physical is as noted above. is at bedside and assist with history. Lactate improved from 2.2-1.8 with IV fluid resuscitation. Mag is 1.3 and was replaced. Total bilirubin mildly elevated with no other evidence of obstructive biliary process ongoing. Would trend in a.m. as planned. Procalcitonin elevation is supportive of sepsis. Patient did start antibiotics already and we may be getting a false negative UA as a result of this. Will await urine culture results from outpatient visit yesterday which are still pending. Patient with lower risk of Pseudomonas, continue Rocephin as noted above. She did receive her methotrexate today but would hold this now. Other history as noted above. I spent a total [id number] coordinating, documenting, and providing care for this patient excluding time spent in the performance of separately billed services Komal Finney DO [facility]
--- OUTSIDE RECORDS SUMMARY | 2023-07-28 14:02 | External Medical Summary | Summary of Care ---
Author Name Unknown Organization [facility] Address [address] [place] [address] Phone [phone] Care Team Providers Care Dispersion Mixer Name Role Phone Eric Spencer DO Primary Care Provider [phone] Reason for Visit * Reason Comments Outpatient Testing Encounter Details Date Type Department Care Team (Late st Contact Info) Description 07/27/2023 3:10 PM EST Laboratory Laboratory [facility] [place] [address] [place] [phone] [facility] [address] [place] [address] Rheumatoid arthritis of multiple sites with negative rheumatoid factor ([facility]); Encounter for long-term (current) use of medications; Type 2 diabetes mellitus with diabetic dermatitis, unspecified whether extermination supervisor insulin use ([facility]) Allergies Active Allergy Reactions Criticality Noted Date Comments Pradeep Inhibitors 04/27/2004 cough Bactrim Abdominal pain 09/01/2008 Abdomen pain Metformin Diarrhea 04/26/2018 Penicillins 11/10/1999 rash Sulfamethoxazole Unknown 12/10/2020 Trimethoprim Unknown 12/10/2020 documented as of this encounter (statuses as of 07/27/2023) Medications Medication Sig Dispensed Refills Start Date End Date Status Triamcinolone Acetonide 0.1 % External Cream (Aristocort) Apply topically to affected area 2 times a day. Apply to legs 80 g 1 12/04/2020 Active Airborne Oral Tablet Chewable daily 0 12/21/2020 Active Fluticasone Propionate 50 MCG/ACT Nasal Suspension Administer 2 Sprays into each nostril daily as needed (for nasal congestion). 0 07/01/2021 Active Cholecalciferol 25 MCG (1000 UT) Oral Tablet Take 1 Tablet by mouth in the morning. 0 02/15/2022 Active Turmeric 500 MG Oral Capsule Take 1 Capsule by mouth in the morning. 0 Active Metoprolol Succinate ER 50 MG Oral Tablet Extended Release 24 Hour (toPROL XL)Indications:Essent ial hypertension with goal blood pressure less than 140/90 Take 1 Tab by mouth daily. 90 Tablet 3 12/11/2022 Active valACYclovir HCl 1 GM Oral Tablet (Valtrex) Take 2 Tablets by mouth in the morning and 2 Tablets before bedtime. For 1 day for cold sores. 4 Tablet 11 12/19/2022 Active Additional Information Patient taking differently:2,000 mg OralPRN, For 1 day for cold sores, Reported on 05/26/2023 Ketoconazole 2 % External Cream Apply topically to affected area daily. Apply to folds 60 g 5 01/02/2023 Active Fish Oil 300 MG Oral Capsule Take by mouth. 0 Active Polyethylene Glycol 3350 17 GM Oral Packet (MiraLax) Take 1 Packet by mouth at bedtime as needed for Constipation. 14 Packet 0 04/28/2023 Active Albuterol Sulfate HFA 108 (90 Base) MCG/ACT Inhalation Aerosol SolutionIndications:B ronchitis, complicated,Acute non-recurrent maxillary sinusitis Inhale 2 Puffs by mouth every 4 hours as needed for Wheezing. 18 g 0 05/26/2023 Active Desonide 0.05 % External Cream Apply to rash on left face twice a day for 1-2 weeks until resolved 60 g 1 06/15/2023 Active Levothyroxine Sodium 100 MCG Oral Tablet (Levoxyl)Indications: Acquired hypothyroidism Take 1 Tablet by mouth in the morning. (at least 30 min prior to breakfast or other meds). 90 Tablet 1 06/30/2023 Active Folic Acid 1 MG Oral Tablet Take 1 Tablet by mouth in the morning. 90 Tablet 3 07/26/2023 Active Methotrexate Sodium 2.5 MG Oral TabletIndications:Rhe umatoid arthritis of multiple sites with negative rheumatoid factor (HCC) Take 6 Tabs by mouth once a week. 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 ICD-10 update of inactive term ATTN DEFIC NONHYPERACT 08/17/2005 Allergic rhinitis 07/26/2002 documented as of this encounter (statuses as of 07/27/2023) Resolved Problems Problem Noted Date Diagnosed Date Resolved Date Inflammatory polyarthritis 08/04/2017 0 08/17/2017 HTN, goal below 140/90 02/21/201412/14 HTN, goal below 140/80 02/06/201202/21 Overview: Per HTN Protocol #27. Severe obesity with body mas s index (BMI) of 35.0 to 39.9 with serious comorbidity 11/30/2009 Overview: Per Obesity Protocol, #19 ICD-10 update of inactive diagnosis HTN, GOAL BELOW 130/80 07/15/200902/08 Overview: Per HTN Taxonomy. Type 2 diabetes mellitus wit h hemoglobin A1c goal of less than 7.0% 10/23/2006 04/16/2009 Overview: Per Diabetes Taxonomy. ICD-10 update of inactive term ADVANCE DIRECTIVE INFORMATION 04/01/2005 02/28/2008 Overview: No, Advance Directive brochure given to patient. HTN, goal below 140/90 12/29/200307/15 Overview: Per HTN Taxonomy. Intermittent asthma with rel iever use up to twice per week 07/26/2002 07/09/2019 Major depressive disorder 07/26/2002 Overview: ICD-10 update of inactive term Pruritic disorder 07/26/2002 09/07/2015 ECZEM DERMATITIS EYELID 07/26/200206/20 HYPOTHYROIDISM NOS 10/06/2000 5 Elevated blood pressure, situational 10/06/2000 01/30/2017 documented as of this encounter (statuses as of 07/27/2023) Immunizations Name Administration Dates Next Due COVID-19 mRNA, LNP-s, No Pre serve, 2-Dose Series ([employer]) 04/09/2021,09/05/2020,08/15/2020 Covid-19, Mrna, Lnp-s, Pf, B ivalent, 30 Mcg, IM, 12 yrs and above (Pfizer) 04/20/2023 H1N1 2009 Influenza, IM 07/29/2009 Hepatitis B, 20+ yrs 08/13/2015,08/21/2013,07/19 MMR - Measles/Mumps/Rubella Vaccine 11/06/2018 Pneumococcal Conjugate Vacc, 13 Valent (Prevnar) 11/06/2018 Pneumococcal Polysaccharide PPV23 (Pneumovax) 06/05/2020,12/25/2006 RSV Vac., Bivalent, Perfusio n F, Pf,0.5 Ml (Abrysvo) 04/03/2023 Seasonal Influenza, PF, 6 M & above, IM , (FluLaval or Fluzone) 03/11/2020,04/26/2018,03/20/2017 Seasonal Influenza, Quadriva lent Hd (Fluzone Hd) 04/10/2023 Seasonal Influenza, Quadriva lent Hd, 65+ Yrs 05/19/2021 Seasonal Influenza, Quadriva lent, No Preserve, IM 04/15/2022,02/25/2016,04/15/2015 Seasonal Influenza, Split, I IV3, With Preserve, Inj 04/03/2014,04/25/2013,03/23/2012,04/19,03/10/2010,03/24/2009,04/29/20 08,03/21/2007,04/19/2006,04/16/1999 04/29/2012 Seasonal Influenza, Trivalen t, Adjuvanted, 65+ yrs 03/10/2020,03/20/2019 TD, Preservative Free 11/06/2018 TDAP (age 11 and older)(Adacel) 07/22/2008 Varicella Zoster Vaccine (Adult) 06/03/2014 Zoster Vaccine Recombinant (Shingrix) 10/30/2019 ,05/18/2019 documented as of this encounter Social History Tobacco Use Types Packs/Day Years Used Date Smoking Tobacco: Never Smokeless Tobacco: Never Comments:No passive smoke ex posure Alcohol Use Standard Drinks/Week Comments Yes 0 (1 standard drink = 0.6 oz pur e alcohol) rarely PHQ-2 Answer Date Recorded PHQ Adult Total Score 5 11/16/2022 Hunger Vital Sign Answer Date Recorded Within the past 12 months, y ou worried that your food would run out before you got the money to buy more. Never true 11/17/19 23 Within the past 12 months, t he food you bought just didn't last and you didn't have money to get more. Never true 11/16/2022 Sex and Gender Information Value Date Recorded Sex Assigned at Female 10/06/2021 9:27 AM EDT Gender Identity Female 10/06/2021 9:27 AM EDT Sexual Orientation Straight 10/06/2021 9: 27 AM EDT Job Start Date Occupation Industry Not on file Not on file Not on file documented as of this encounter Plan of Treatment Upcoming Encounters Date Type Department Care Team (Late st Contact Info) Description 08/15/2023 8:20 AM EST Office Visit Family Practice [facility] [address] [place] [address] Eric Spencer, DO [address] [place] [address] 11/22/2023 9:00 AM EDT Nurse Only Ancillary [facility] [address] [place] [address] Im, Nurse Annual Wellness [facility] 200 [facility] [place], [place] [address] 02/26/2024 9:45 AM EDT Office Visit Dermatology [facility] [address] [facility] [place] [address] Harris Lanza MD [address] [facility] [place] [address] 03/18/2024 12:30 PM EDT Office Visit Dermatology, [place] [address] [place] [address] Mary Schmidt PA-C [address] [place] [address] 07/31/2024 9:20 AM EST Office Visit Rheumatology [place] [address] [facility] [place] [address] Imer Quijano MD [facility] [place], [place] [address] Pending Results Name Type Priority Associated Diagnoses Date /Time COMPREHENSIVE METABOLIC PANEL Lab Routine Rheumatoid arthritis of multiple sites with negative rheumatoid factor (HCC) Encounter for long-term (current) use of medications 07/27/2023 3:13 PM EST HEMOGLOBIN A1C Lab Routine Type 2 diabetes mellitus with diabetic dermatitis, unspecified whether extermination supervisor insulin use (HCC) 07/27/2023 3:13 PM EST Scheduled Procedures Name Priority Associated Diagnoses Date/Ti me COLONOSCOPY FLEXIBLE PROXIMAL DIAGNOSTIC Recall History of colon polyps Health Maintenance Due Date Last Done Comments HbA1c 05/03/2023 10/31/2022, 12/0 12/2021, 01/24/2022, Additional history exists COVID-19 Vaccine (2022- season) 2023 04/20/2023, 04/09/2021, 09/05/2020, Additional history exists Diabetic Eye Exam 08/12/2023 08/12/2022, , 03/05/2021, Additional history exists Mammogram 08/12/2023 08/12/2022, 07/21, 08/07/2020, Additional history exists Depression Screening 11/17/2023 11/16/2022 Diabetic Foot Exam 11/17/2023 11/16/2022, 0 11/16/2022, 07/01/2021, Additional history exists TSH 04/20/2024 04/20/2023, 01/2022, 12/04/2020, Additional history exists Albumin/Creatinine Ratio 04/24/2024 023, 01/24/2022, 12/04/2020, Additional history exists GFR 04/24/2024 04/24/2023, 07/2022, 04/10/2023, Additional history exists COLONOSCOPY-EVERY 3 YRS AGES 18-100 09/30/2025 09/30/2022, 09/30/2022, 08/12/2019, Additional history exists Lipid Panel 05/25/2027 05/25/2022, 11/17, 06/09/2020, Additional history exists DTaP,Tdap,and Td Vaccines (3 - Td or Tdap) 11/06/2028 11/06/2018, 07/22/2008 DXA Scan 06/28/2029 06/28/2022, 05/19, 08/21/2017 Hepatitis B Completed 08/13/2015, 10/2013, 07/19/2013 Zoster Vaccines Completed 10/30/2019, 04/21, 06/03/2014 Pneumococcal Vaccine: 65+ Years Completed 06/05/2020, 11/06/2018, 12/25/2006 Influenza Vaccine (FLU shot) Completed , 04/15/2022, 05/19/2021, Additional history exists GARDASIL-HPV IMMUNIZATION SERIES Aged Out No longer eligible based on patient's age to complete this topic MENINGOCOCCAL (MENACTRA/MENVEO) Aged Out No longer eligible based on patient's age to complete this topic documented as of this encounter Medical Devices Implanted Type Area Mop Worker Device Identifier Shelf Expiration Date Model / Serial / Lot Ralph Rodriguez - [id number] Implanted:Qty: 1 on 04/28/2023 by Sachin Clemens MD at OR [facility] N/A: Vagina [employer] 02/25/2024 [id number] / / [id number] documented as of this encounter Procedures Procedure Name Priority Date/Time Associated Diagnosis Comments DIFFERENTIAL, AUTOMATED Routine 07/27/2023 3:13 PM EST Rheumatoid arthritis of multiple sites with negative rheumatoid factor (HCC) Encounter for long-term (current) use of medications CBC Routine 07/27/2023 3:13 PM EST Rheumatoid arthritis of multiple sites with negative rheumatoid factor (HCC) Encounter for long-term (current) use of medications CBC Routine 07/27/2023 3:13 PM EST Rheumatoid arthritis of multiple sites with negative rheumatoid factor (HCC) Encounter for long-term (current) use of medications documented in this encounter Results * DIFFERENTIAL, AUTOMATED (07/27/2023 3:13 PM EST) WBC 7.93 4.00 - 10.80 K/uL 07/27/2023 3:27 PM EST [facility] Neutrophils % 51.5 40.0 - 75.0 % 07/27/2023 3:27 PM EST [facility] Lymphocytes % 36.2 18.0 - 42.0 % 07/27/2023 3:27 PM EST [facility] Monocytes % 8.7 1.0 - 11.0 % 07/27/2023 3:27 PM EST [facility] Eosinophils % 3.3 0.0 - 6.0 % 07/27/2023 3:27 PM EST [facility] Basophils % 0.3 0.0 - 2.0 % 07/27/2023 3:27 PM EST [facility] Absolute Neutrophils 4.09 1.80 - 7.70 K/uL 07/27/2023 3:27 PM EST [facility]02 Absolute Lymphocytes 2.87 1.00 - 4.80 K/ul 07/27/2023 3:27 PM EST [facility]02 Absolute Monocytes 0.69 0.00 - 1.10 K/uL 07/27/2023 3:27 PM EST [facility] 56 Absolute Eosinophils 0.26 0.00 - 0.70 K/uL 07/27/2023 3:27 PM [facility] 56 Absolute Basophils 0.02 0.00 - 0.20 K/uL 07/27/2023 3:27 PM [facility] 56 Blood Venous blood specimen / Unknown Venipuncture / Unknown 07/27/2023 3:13 PM EST 07/27/2023 3:13 PM EST Imer Quijano MD LAB BLOOD ORDERABLE S [place] [address] [place] [address] * CBC (07/27/2023 3:13 PM EST) WBC 7.93 4.00 - 10.80 K/uL 07/27/2023 3:[address] RBC 4.23 3.85 - 5.15 M/uL 07/27/2023 3:[address] HGB 13.1 12.0 - 15.3 g/dL 07/27/2023 3:27 PM [facility] 56 HCT 38.7 36.0 - 45.2 % 07/27/2023 3:27 PM [facility] 56 MCV 91.5 81.5 - 97.5 fL 07/27/2023 3:27 PM [facility] 56 MCH 31.0 27.0 - 34.0 pg 07/27/2023 3:27 PM [facility] 56 MCHC 33.9 32.0 - 36.0 g/dL 07/27/2023 3:27 PM [facility] 56 RDW 14.3 11.5 - 15.5 % 07/27/2023 3:27 PM [facility] 56 PLT 250 140 - 400 K/uL 07/27/2023 3:27 PM [facility] 56 MPV 10.2 6.6 - 11.1 fL 07/27/2023 3:27 PM [facility] 56 Blood Venous blood specimen / Unknown Venipuncture / Unknown 07/27/2023 3:13 PM EST 07/27/2023 3:13 PM EST Imer Quijano MD LAB BLOOD ORDERABLE S [facility] 56-02 [address] [place] [address] documented in this encounter Visit Diagnoses Diagnosis Rheumatoid arthritis of multiple sites with negative rheumatoid factor (HCC) Encounter for long-term (current) use of medications Encounter for long-term (current) use of other medications Type 2 diabetes mellitus with diabetic dermatitis, unspecified whether intermediate insulin use (HCC) documented in this encounter Advance Directives Latest Code Status on File Code Status Date Activated Date Inactivated Comments Full Code 04/28/2023 9:21 AM 04/28/2023 5:40 PM Thi s order reflects the patients wishes and were consensually agreed upon. Question Answer Comments Discussion of Advance Directives occurred with: Not Discussed due to patient's condition Care Teams Dispersion Mixer Relationship Specialty Start Date End Date [facility] [address] P[facility] - General Family Medicine 05/03/18 documented as of this encounter
--- OUTSIDE RECORDS SUMMARY | 2023-07-28 14:02 | External Medical Summary | Summary of Care ---
Author Name Unknown Organization [facility] [address] [facility] [address] Phone [phone] Care Team Providers Care Bobbin Cleaner Hand Name Role Phone Eric Spencer DO Primary Care Provider [phone] Encounter Details Date Type Department Care Team (Late st Contact Info) Description 07/23/2023 [facility] [address] [facility] [place] [address] Saundra Mendoza PA-C [address] [facility] [place] [address] Allergies Active Allergy Reactions Criticality Noted Date Comments Pradeep Inhibitors 04/27/2004 cough Bactrim Abdominal pain 09/01/2008 Abdomen pain Metformin Diarrhea 04/26/2018 Penicillins 11/10/1999 rash Sulfamethoxazole Unknown 12/10/2020 Trimethoprim Unknown 12/10/2020 documented as of this encounter (statuses as of 07/24/2023) Medications Medication Sig Dispensed Refills Start Date [...] mouth daily. 90 Tablet 3 12/11/2022 Active Folic Acid 1 MG Oral Tablet Take 1 Tablet by mouth in the morning. 90 Tablet 3 12/16/2022 Active valACYclovir HCl 1 GM Oral Tablet [...] Oral Capsule Take by mouth. 0 Active Methotrexate Sodium 2.5 MG Oral TabletIndications:Rhe umatoid arthritis of multiple sites with negative rheumatoid factor (HCC) Take 6 Tabs by mouth once a week. Fridays 78 Tablet 1 04/11/2023 Active Polyethylene Glycol 3350 17 GM Oral [...] other meds). 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 ICD-10 update of inactive term ATTN DEFIC NONHYPERACT 08/17/2005 Allergic rhinitis 07/26/2002 documented as of this encounter (statuses as of 07/24/2023) Resolved Problems Problem Noted Date Diagnosed Date [...] as of this encounter (statuses as of 07/24/2023) Immunizations Name Administration Dates Next Due COVID-19 mRNA, LNP-s, No Pre serve, 2-Dose Series (b-datum) 04/09/2021,09/05/2020,08/15/2020 Covid-19, Mrna, Lnp-s, Pf, B ivalent, [...] on file documented as of this encounter Miscellaneous Notes * Telephone Encounter - Eric Spencer DO - 07/24/2023 3:09 PM EST Has this been persistent for months? It looks like stool studies were done in March. Is it time for a CT or even just a referral to GI? * Telephone Encounter - Saundra Mendoza PA-C - 07/23/2023 11:02 PM EST . documented in this encounter Plan of Treatment Upcoming Encounters Date Type Department Care Team (Late st Contact Info) Description 07/26/2023 8:40 AM EST Office Visit Rheumatology [place] [id number] [place], [place] [address] Imer Quijano MD [facility] [place] [address] 08/29/2023 6:20 PM EDT Office Visit Family Practice [facility] [address] [facility] [place] [address] Eric Spencer, [address] [facility] [place] [address] 11/22/2023 9:00 AM EDT Nurse Only Ancillary [facility] 200 [facility] [place] [address] Im, Nurse Annual Wellness [facility] [address] [facility] [place] [address] 02/26/2024 9:45 AM EDT Office Visit Dermatology [facility] [address] [facility] [place] [address] Harris Lanza MD 200 [facility] [place], [place] [address] 03/18/2024 12:30 PM EDT Office Visit Dermatology, [place] [address] [place] [address] Mary Schmidt PA-C [address] [place], [place] [id number] Scheduled Procedures Name Priority Associated Diagnoses Date/Ti [...] this encounter Medical Devices Implanted Type Area River Rafting Guide Device Identifier Shelf Expiration Date Model / Serial / Lot Sling Comfort Rodriguez - [id number] Implanted:Qty: 1 on 04/28/2023 by Sachin Clemens MD at OR [facility] N/A: Vagina [employer] 02/25/2024 [id number] / [id number] documented as of this encounter Advance Directives Latest Code Status on File Code Status Date Activated Date Inactivated Comments Full Code 04/28/2023 9:21 AM 04/28/2023 5:40 PM Thi s order reflects the patients wishes and were consensually agreed upon. Question Answer Comments Discussion of Advance Directives occurred with: Not Discussed due to patient's condition Care Teams Bobbin Cleaner Hand Relationship Specialty Start Date End Date Eric Spencer DO [address] [place] [address] PCP - General Family Medicine 05/03/18 documented as of this encounter
--- OUTSIDE RECORDS SUMMARY | 2023-07-28 14:02 | External Medical Summary | Summary of Care ---
Author Name Unknown Organization [facility] Address [address] [facility] [place] [address] Phone [phone] Care Team Providers Care Ham Sawyer Name Role Phone Eric Spencer DO Primary Care Provider [phone] Encounter Details Date Type Department Care Team (Late st Contact Info) Description 07/19/2023 Telephone Sleep Disorders, [facility] [address] [place] [address] Swetha Nieves MD [address] [place] [address] Allergies Active Allergy Reactions Criticality Noted Date Comments Pradeep Inhibitors 04/27/2004 cough Bactrim Abdominal pain 09/01/2008 Abdomen pain Metformin Diarrhea 04/26/2018 Penicillins 11/10/1999 rash Sulfamethoxazole Unknown 12/10/2020 Trimethoprim Unknown 12/10/2020 documented as of this encounter (statuses as of 07/19/2023) Medications Medication Sig Dispensed Refills Start Date [...] as of this encounter (statuses as of 07/19/2023) Active Problems Problem Noted Date Diagnosed Date TAMAR (obstructive sleep apnea) 07/17/2023 ASCUS of cervix with negative high risk HPV 03/20 Irritable bowel syndrome wit h both constipation and diarrhea 05/25/2022 History of 2019 novel coronavirus disease (COVID -19) 07/01/2021 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 ICD-10 update of inactive term ATTN DEFIC NONHYPERACT 08/17/2005 Allergic rhinitis 07/26/2002 documented as of this encounter (statuses as of 07/19/2023) Resolved Problems Problem Noted Date Diagnosed Date [...] as of this encounter (statuses as of 07/19/2023) Immunizations Name Administration Dates Next Due COVID-19 mRNA, LNP-s, No Pre serve, 2-Dose Series ([place]) 04/09/2021,09/05/2020,08/15/2020 Covid-19, Mrna, Lnp-s, Pf, B ivalent, [...] Split, I IV3, With Preserve, Inj 04/03/2014,04/25/2013,03/23/2012,04/19,03/10/2010,03/24/2009,04/29/20 08,03/21/2007,04/19/2006 04/29/2012 Seasonal Influenza, Trivalen t, Adjuvanted, 65+ [...] encounter Miscellaneous Notes * Telephone Encounter - Nathen Miller OSA - 07/19/2023 10:02 AM EST Orders in 07/19 AHP new cpap documented in this encounter Plan of Treatment Upcoming Encounters Date Type Department Care Team (Late st Contact Info) Description 07/26/2023 8:40 AM EST Office Visit Rheumatology [facility] [address] [place] [address] Imer Quijano MD [address] [place] [address] 08/29/2023 6:20 PM EDT Office Visit Family Practice [facility] [place] [address] [facility] [place] [address] Eric Spencer DO [address] [facility] [place], [place] [address] 11/22/2023 9:00 AM EDT Nurse Only Ancillary [facility] [place] [address] [facility] [address] [place], [place] [address] Im, Nurse Annual Wellness [facility] [address] [facility] [facility] [address] [place], [place] [address] 02/26/2024 9:45 AM EDT Office Visit Dermatology [facility] [place] [address] [facility] [place], [place] [address] Harris Lanza MD [address] [facility] [address] [place], [place] [address] 03/18/2024 12:30 PM EDT Office Visit Dermatology, Tanna Christianson [address] [place] [address] Mary Schmidt PA-C [address] [place] [address] Scheduled Procedures Name Priority Associated Diagnoses Date/Ti me COLONOSCOPY FLEXIBLE PROXIMAL DIAGNOSTIC Recall History of colon polyps Health Maintenance Due Date Last Done Comments HbA1c 05/03/2023 10/31/2022, 12/12/2021, 01/24/2022, Additional history exists COVID-19 Vaccine ( season) 2023 04/20/2023, 04/09/2021, 09/05/2020, Additional history [...] this encounter Medical Devices Implanted Type Area Immigration Patrol Inspector Device Identifier Shelf Expiration Date Model / Serial / Lot Danieling Comfort Rodriguez - [id number] Implanted:Qty: 1 on 04/28/2023 by Sachin Clemens MD at OR [facility] N/A: Vagina [employer] 02/25/2024 [id number] / [id number] documented as of this encounter Advance Directives Latest Code Status on File Code Status Date Activated Date Inactivated Comments Full Code 04/28/2023 9:21 AM 04/28/2023 5:40 PM Thi s order reflects the patients wishes and were consensually agreed upon. Question Answer Comments Discussion of Advance Directives occurred with: Not Discussed due to patient's condition Care Teams Ham Sawyer Relationship Specialty Start Date End Date Eric Spencer DO [address] [place] [address] PCP - General Family Medicine 05/03/18 documented as of this encounter
--- OUTSIDE RECORDS SUMMARY | 2023-07-28 14:02 | External Medical Summary | Summary of Care ---
Author Name Unknown Organization [facility] Address [address] [facility] [address] Phone [phone] Care Team Providers Care Bowling Ball Mold Assembler Name Role Phone Eric Spencer DO Primary Care Provider [phone] Reason for Visit * Reason Comments Rheum Follow Up Recheck RA Encounter Details Date Type Department Care Team (Late st Contact Info) Description 07/26/2023 8:40 AM EST Office Visit Rheumatology [place] [id number] [place] [address] Imer Quijano MD [facility] [address] [place] [address] Rheumatoid arthritis of multiple sites with negative rheumatoid factor (HCC)*; Encounter for long-term (current) use of medications; Trochanteric bursitis of both hips Allergies Active Allergy Reactions Criticality Noted Date Comments Pradeep Inhibitors 04/27/2004 cough Bactrim Abdominal pain 09/01/2008 Abdomen pain Metformin Diarrhea 04/26/2018 Penicillins 11/10/1999 rash Sulfamethoxazole Unknown 12/10/2020 Trimethoprim Unknown 12/10/2020 documented as of this encounter (statuses as of 07/26/2023) Medications Medication Sig Dispensed Refills Start Date [...] Oral Tablet Extended Release 24 Hour (toPROL XL)Indications:Esse ntial hypertension with goal blood pressure less than [...] HFA 108 (90 Base) MCG/ACT Inhalation Aerosol SolutionIndications :Bronchitis, complicated,Acute non-recurrent maxillary sinusitis Inhale 2 Puffs by mouth every 4 hours as needed for Wheezing. 18 g 0 05/26/2023 Active Desonide 0.05 % External Cream Apply to rash on left face twice a day for 1-2 weeks until resolved 60 g 1 06/15/2023 Active Levothyroxine Sodium 100 MCG Oral Tablet (Levoxyl)Indication s:Acquired hypothyroidism Take 1 Tablet by mouth in the morning. (at least 30 min prior to breakfast or other meds). 90 Tablet 1 06/30/2023 Active Folic Acid 1 MG Oral Tablet Take 1 Tablet by mouth in the morning. 90 Tablet 3 07/26/2023 Active Methotrexate Sodium 2.5 MG Oral TabletIndications:R heumatoid arthritis of multiple sites with negative rheumatoid factor (HCC) Take 6 Tabs by mouth once a week. Fridays 78 Tablet 1 07/26/2023 Active Folic Acid 1 MG Oral Tablet Take 1 Tablet by mouth in the morning. 90 Tablet 3 12/16/2022 4 Discontinue d(Refill) Methotrexate Sodium 2.5 MG Oral TabletIndications:R heumatoid arthritis of multiple sites with negative rheumatoid factor (HCC) Take 6 Tabs by mouth once a week. Fridays 78 Tablet 1 04/11/2023 4 Discontinue d(Refill) documented as of this encounter (statuses as of 07/26/2023) Active Problems Problem Noted Date Diagnosed Date [...] of medicat ions 05/03/2018 [facility] of [facility] with negative rheumatoid factor 08/17/2017 Essential hypertension with goal blood pressure less than 140/90 12/15/2015 Hypothyroidism 04/15/2015 Idiopathic urticaria 07/13/2012 Type 2 diabetes mellitus wit h hemoglobin A1c goal of less than 7.0% 04/16/2009 Overview: Per Diabetes Taxonomy. ICD-10 update of inactive term ATTN DEFIC NONHYPERACT 08/17/2005 Allergic rhinitis 07/26/2002 documented as of this encounter (statuses as of 07/26/2023) Resolved Problems Problem Noted Date Diagnosed Date [...] as of this encounter (statuses as of 07/26/2023) Immunizations Name Administration Dates Next Due COVID-19 mRNA, LNP-s, No Pre serve, 2-Dose Series ([place]io) 04/09/2021,09/05/2020,08/15/2020 Covid-19, Mrna, Lnp-s, Pf, B ivalent, 30 Mcg, IM, 12 yrs and above (Mopio) 04/20/2023 H1N1 2009 Influenza, IM 07/29/2009 Hepatitis [...] Date Smoking Tobacco: Never Smokeless Tobacco: Never Tobacco Cessation:Counseling Given: Not Answered Comments:No passive smoke exposure Alcohol Use Standard Drinks/Week Comments Yes 0 [...] on file documented as of this encounter Last Filed Vital Signs Vital Sign Reading Time Taken Comments Blood Pressure 140/62 07/26/2023 8:29 AM EST Pulse - - Temperature 36.5 C (97.7 F) 07/26/2023 8:29 AM ES T Respiratory Rate - - Oxygen Saturation - - Inhaled Oxygen Concentration - - Weight 87.1 kg (192 lb) 07/26/2023 8:29 AM EST Height - - Body Mass Index 34.01 07/17/2023 10:23 AM EST documented in this encounter Progress Notes * Imer Quijano MD - 07/26/2023 8:33 AM EST Images from the original note were not included. Assessment and Plan Rheumatoid arthritis of multiple sites with negative rheumatoid factor (HCC) - Methotrexate Sodium; Take 6 Tabs by mouth once a week. Fridays - CBC with WBC Differential; Standing - Comprehensive Metabolic Panel; Standing Encounter for long-term (current) use of medications - CBC with WBC Differential; Standing - Comprehensive Metabolic Panel; Standing Trochanteric bursitis of both hips Discussed conservative measures for trochanteric bursitis. If continues to be an issue can send to formal PT. RA is doing well. Will continue with current meds. Continue with labs every 3 months. Return to clinic in 1 year. Rheumatology Synopsis: [facility] RA SYNOPSIS Date of RA Diagnosis: 08/02/17 (07/26/2023 8:00 AM) Current Treatment: MTX (07/26/2023 8:00 AM) 2009 Classification Criteria: Y (07/26/2023 8:00 AM) Seropositive or seronegative: Seronegative (07/26/2023 8:00 AM) Disease activity: Controlled Patient History History of Present Illness HPI:68 year old female presented to rheumatology clinic for Rheum Follow Up (Recheck RA) She did have a bladder tacking surgery and that went well. She has remained on MTX but did miss theweek of surgery. She is due for labs. ROS: Review of Systems was asked and the following other significant symptoms are present: constipation/diarrhea, joint pains Rheumatology History Subjective Patient's past history, medications, and allergies were reviewed. Objective Physical Exam BP 140/62 | Temp 36.5 C (97.7 F) (Infrared ) | Wt 87.1 kg (192 lb) | LMP 08/26/2003 | BMI 34.01kg/m | BSA 1.97 m Constitutional: no acute distress HEENT: normal: normocephalic, atraumatic; no masses, tenderness, or adenopathy Eyes: PERRLA, sclera and conjunctiva normal Neck: supple, no adenopathy CV: normal rate and rhythm, no murmur, gallops or rub Chest: normal respiratory effort, lungs clear to auscultation and percussion Abdomen: normal: soft, bowel sounds normal, no masses, tenderness or organomegaly Musculoskeletal: Limited extension and flexion of left 1st MTP with tenderness on exam. No synovitis or dactylitis noted to fingers or toes. No knee effusions. Mild bilateral trochanteric bursitis MSK/Joint exam (Homunculus) MSK Exam findings: Homunculus exam Studies: Labs and Imaging studies reviewed with pertinent findings noted below: Disease Treatment Response CDAI Scoring Patient Global: 30 mm Provider Global: 10 mm Tender (HAHN-28): 0 / 28 Swollen (HAHN-28): 0 / 28 CDAI: 4 CDAI (Clinical Disease Activity Index) [facility] Outcomes measures: Serial CDAI: Synopsis SmartLink 07/26/2023 08:40 CDAI CDAI 4 - Serial CDAI: - Yes - Remission: - Yes - low disease activity Currently on csDMARD: Yes Currently on Biologic DMARD: No Vaccination status: COVID: Vaccine and/or Health maintenance status Incomplete Influenza:Vaccine complete for this season Pneumococcal:Vaccine Series complete Zoster:Vaccine Series Complete Last Hepatitis and TB testing: Hepatitis B: Not Tested, results not available Hepatitis C: Tested, result reviewed PPD or TB-Gold: Not Tested, results not available Lab Results Component Value Date HCVAB NEGATIVE 08/13/2015 No results found for: "TB GOLD AG NIL", "TB GOLD MITOGEN NIL", "PPD INDURATION", "PPD-OUTSIDE LAB","QUANTIFERON GOLD TB", "QUANTIFERON-TB PLUS", "QUANTIFERON-TB PLUS,1T", "QUANTIFERON-TB PLUS,4T" Wrap-Up Follow-up: Return in about 1 year (around 07/26/2024). | Check-out note: RA documented in this encounter Nursing Notes * Kodak Duque LPN - 07/26/2023 8:28 AM EST Chief Complaint Patient presents with Rheum Follow Up Recheck RA documented in this encounter Plan of Treatment Upcoming Encounters Date Type Department Care Team (Late st Contact Info) Description 08/29/2023 6:20 PM EDT Office Visit Family Practice [facility] [address] [facility] [place] [address] Eric Spencer DO [address] [facility] [place] [address] 11/22/2023 9:00 AM EDT Nurse Only Ancillary [facility] [address] [facility] [place] [address] Im, Nurse Annual Wellness [facility] [address] [facility] [place] [address] 02/26/2024 9:45 AM EDT Office Visit Dermatology [facility] [address] [facility] [address] [place] [address] Harris Lanza MD [address] [facility] [place] [address] 03/18/2024 12:30 PM EDT Office Visit Dermatology, Pamela CarterTanna [address] [place] [address] Mary Schmidt PA-C [address] [place], [place] [id number] 07/31/2024 9:20 AM EST Office Visit [facility]umatology [place] [address] [facility] [place] [address] Imer Quijano MD [facility] [address] [employer] [facility] [place] [address] Scheduled Orders Name Type Priority Associated Diagnoses Orde r Schedule CBC WITH WBC DIFFERENTIAL Lab Routine Rheumatoid arthritis of multiple sites with negative rheumatoid factor (HCC) Encounter for long-term (current) use of medications Every 3 Months for 999 Occurrences starting 07/26/2023 until 07/26/2024 COMPREHENSIVE METABOLIC PANEL Lab Routine Rheumatoid arthritis of multiple sites with negative rheumatoid factor (HCC) Encounter for long-term (current) use of medications Every 3 Months for 999 Occurrences starting 07/26/2023 until 07/26/2024 Scheduled Procedures Name Priority Associated Diagnoses Date/Ti me COLONOSCOPY FLEXIBLE PROXIMAL DIAGNOSTIC Recall History of colon polyps Health Maintenance Due Date Last Done Comments HbA1c 05/03/2023 10/31/2022, 1212/2021, 01/24/2022, Additional history exists COVID-19 Vaccine (2022- season) 2023 04/20/2023, 04/09/2021, 09/05/2020, Additional history exists Diabetic Eye Exam 08/12/2023 08/12/2022, , 03/05/2021, Additional history exists Mammogram 08/12/2023 08/12/2022, 07/21, 08/07/2020, Additional history exists Depression Screening 11/17/2023 11/16/2022 Diabetic Foot Exam 11/17/2023 11/16/2022, 0 11/16/2022, 07/01/2021, Additional history exists TSH 04/20/2024 04/20/2023, 080 01/2022, 12/04/2020, Additional history exists Albumin/Creatinine Ratio 04/24/2024 023, 01/24/2022, 12/04/2020, Additional history exists GFR 04/24/2024 04/24/2023, 11/0 07/2022, 04/10/2023, Additional history exists COLONOSCOPY-EVERY 3 [...] this encounter Medical Devices Implanted Type Area Chemist Assistant Device Identifier Shelf Expiration Date Model / Serial / Lot Sling Comfort [employer] - [id number] Implanted:Qty: 1 on 04/28/2023 by Sachin Clemens MD at OR [facility] N/A: Vagina [employer] 02/25/2024 [id number] / / [id number] documented as of this encounter Visit Diagnoses Diagnosis Rheumatoid arthritis of multiple sites with negative rheumatoid factor (HCC)- Primary Encounter for long-term (current) use of medications Encounter for long-term (current) use of other medications Trochanteric bursitis of both hips Enthesopathy of hip region documented in this encounter Advance Directives Latest Code Status on File Code Status Date Activated Date Inactivated Comments Full Code 04/28/2023 9:21 AM 04/28/2023 5:40 PM Thi s order reflects the patients wishes and were consensually agreed upon. Question Answer Comments Discussion of Advance Directives occurred with: Not Discussed due to patient's condition Care Teams Bowling Ball Mold Assembler Relationship Specialty Start Date End Date Eric Spencer DO [address] [place] [address] PCP - General Family Medicine 05/03/18 documented as of this encounter
--- OUTSIDE RECORDS SUMMARY | 2023-07-28 14:02 | External Medical Summary ---
Author Name Unknown Address Unknown Organization K09:[facility] [place] [address] Laboratory Report Ordering Provider Test Date Status ROSALIND ZHANGLUIS 07/27/2023 15:13:34 Final Observation Date Value Abnormality Reference (Units ) Status BUN 07/27/2023 15:13:34 16 6-20 (mg/dL) Final Creatinine 07/27/2023 15:13:34 0.7 0.5-1.0 (mg/dL) Final Glomerular filtration rate/1.73 sq M.predicted [Volume Rate/Area] in Serum, Plasma or Blood by Creatinine-based formula (CKD-EPI) 07/27/2023 15:13:34 >90 >=60 (mL/min) Final eGFR is calculated based on the CKD-EPI 2020 equation SODIUM 07/27/2023 15:13:34 140 135-146 (m mol/L) Final Potassium 07/27/2023 15:13:34 4.0 3.5-5.1 (m mol/L) Final Cl 07/27/2023 15:13:34 102 98-107 (mm ol/L) Final CO2 07/27/2023 15:13:34 27 22-32 (mmo l/L) Final Anion gap 07/27/2023 15:13:34 11 7-15 (mmol /L) Final Glucose 07/27/2023 15:13:34 131 Above high normal 70 -120 (mg/dL) Final Albumin 07/27/2023 15:13:34 4.5 3.8-5.0 (g /dL) Final AST (Aspartate aminotransferase) 07/27/2023 15:13:34 19 10-35 (U/L) Fin al Alk Phos 07/27/2023 15:13:34 89 35-130 (U/ L) Final Bilirubin, Total 07/27/2023 15:13:34 0.7 <=1 .2 (mg/dL) Final Calcium 07/27/2023 15:13:34 9.9 8.4-10.2 ( mg/dL) Final Protein 07/27/2023 15:13:34 7.1 6.0-8.3 (g /dL) Final ALT (Alanine aminotransferase) 07/27/2023 15:13:34 17 10-35 (U/L) Alex sanchez Performing Location [facility] [place] [address]
--- OUTSIDE RECORDS SUMMARY | 2023-07-28 14:02 | External Medical Summary | Summary of Care ---
Author Name Unknown Organization [facility] Address [address] [place] [address] Phone [phone] Care Team Providers Care Cooker Meal Name Role Phone Eric Spencer DO Primary Care Provider [phone] Reason for Visit * Reason Onset Date Comments Urinary Tract Infection Symptoms Urinary Tract Infection Symptoms 07/27/2023 Encounter Details Date Type Department Care Team (Late st Contact Info) Description 07/27/2023 5:00 PM EST Convenient Care Visit [facility] [address] [place] [address] Xavi Ann PA-C [address], [place] [id number] UTI symptoms*; Acute UTI Allergies Active Allergy Reactions Criticality Noted Date [...] Oral Tablet Extended Release 24 Hour (toPROL XL)Indications:Essen tial hypertension with goal blood pressure less than [...] HFA 108 (90 Base) MCG/ACT Inhalation Aerosol SolutionIndications: Bronchitis, complicated,Acute non-recurrent maxillary sinusitis Inhale 2 Puffs by mouth every 4 hours as needed for Wheezing. 18 g 0 05/26/2023 Active Desonide 0.05 % External Cream Apply to rash on left face twice a day for 1-2 weeks until resolved 60 g 1 06/15/2023 Active Levothyroxine Sodium 100 MCG Oral Tablet (Levoxyl)Indications :Acquired hypothyroidism Take 1 Tablet by mouth in the morning. (at least 30 min prior to breakfast or other meds). 90 Tablet 1 06/30/2023 Active Folic Acid 1 MG Oral Tablet Take 1 Tablet by mouth in the morning. 90 Tablet 3 07/26/2023 Active Methotrexate Sodium 2.5 MG Oral TabletIndications:Rh eumatoid arthritis of multiple sites with negative rheumatoid factor (HCC) Take 6 Tabs by mouth once a week. Fridays 78 Tablet 1 07/26/2023 Active Nitrofurantoin Monohyd Macro 100 MG Oral Capsule (Macrobid)Indication s:UTI symptoms,Acute UTI Take 1 Capsule by mouth in the morning and 1 Capsule before bedtime. Do all this for 7 days. 14 Capsule 0 07/27/2023 Active documented as of this encounter (statuses [...] of medicat ions 05/03/2018 Rheumatoid arthritis of [facility] sites with negative rheumatoid factor 08/17/2017 Essential [...] mRNA, LNP-s, No Pre serve, 2-Dose Series ([employer]) 04/09/2021,09/05/2020,08/15/2020 Covid-19, Mrna, Lnp-s, Pf, B ivalent, [...] Sign Reading Time Taken Comments Blood Pressure 138/76 07/27/2023 5:40 PM EST Pulse 73 07/27/2023 5:40 PM EST Temperature 35.8 C (96.5 F) 07/27/2023 5:40 PM ES T Respiratory Rate 18 07/27/2023 5:40 PM EST Oxygen Saturation 98% 07/27/2023 5:40 PM EST Inhaled Oxygen Concentration - - Weight 88 kg (194 lb) 07/27/2023 5:40 PM EST Height - - Body Mass Index 34.37 07/17/2023 10:23 AM EST documented in this encounter Patient Instructions * Patient Instructions* Xavi Ann PA-C - 07/27/2023 6:01 PM EST Macrobid (antibiotic) twice a day for 7 days. Do not stop early. Drink plenty of fluids and increase fluid intake over next 48-72 hours. Take all medications as prescribed, even if you are feeling better sooner so as to reduce risk of reinfection and to reduce the chance of antibiotic resistance developing. If your urine culture shows resistance, we will contact you and switch medications. If your urine culture was negative, we will let you know. Otherwise, assume that if you do not hear from us, the bacteria that grew will likely be treated byyour antibiotic. F/U with PCP with no improvement in 3-5 days. Go immediately to the ED with any change or worsening symptoms including chills, fevers, back pain. documented in this encounter Progress Notes * Xavi Ann PA-C - 07/27/2023 6:01 PM EST Nursing Notes: Aleida Shipman LPN 07/27/23 4734 Signed Lashonda Hardy is a 68 year old female who presents to walk-in clinic today complaining of UTI symptoms of urgency and frequency with urination. Had bladder tacked up in April. Pt alone in room. CONVENIENT CARE PROGRESS NOTE Lashonda Hardy is a 68 year old female who presents with urinary tract symptoms. Patient was accompanied by Self. HPI: Severity of Symptoms: Moderate Modifying Factors (what was done since onset of Symptoms): none Timing (How often does it occur): constant Quality (Feels Like): dysuria, frequency, urgency Other associated Signs and Symptoms: low pelvic pressure, malodorous urine. Denies hematuria, f/s/ch, n/v/d/c. She is /a1, vaginal. ROS: See HPI HISTORY: Past Medical History: Diagnosis Date Asthma, allergic Benign neoplasm of colon 11/18/2011 adenomatous and hyperplastic polyp rpeat in 3-5 yrs Depressive disorder, not elsewhere classified Glaucoma History of 2019 novel coronavirus disease (COVID-19) 07/01/2021 HTN, goal below 140/90 Hypothyroidism Rheumatoid arthritis (HCC) Past Surgical History: Procedure Laterality Date , INDUCED BY D&E 1983 ? D&E miscarriage BIOPSY OF BREAST, OPEN 03/10/1997 Breast Biopsy, Benign Disease BIOPSY OF BREAST, OPEN 03/10/2003 needle localization-right breast CARPAL TUNNEL SURGERY Bilateral 2000 COLONOSCOPY, DIAGNOSTIC (RECTUM) 11/18/2011 hyperplastic and adenomatous polyps repeat in 3-5 yrs COLONOSCOPY, DIAGNOSTIC (RECTUM) 10/05/2015 adenomatous polyp, diverticulosis, repeat 5 yrs/COLONOSCOPY FLEXIBLE PROXIMAL DIAGNOSTIC performed by Melba Hernandez DO at [facility] COLONOSCOPY, DIAGNOSTIC (RECTUM) 08/12/2019 biopsies show adenomatous polyps/recall 3 years/COLONOSCOPY FLEXIBLE PROXIMAL DIAGNOSTIC performed by Melba Hernandez DO at [facility] COLONOSCOPY, DIAGNOSTIC (RECTUM) 09/30/2022 normal, repeat 3 yrs / COLONOSCOPY FLEXIBLE PROXIMAL DIAGNOSTIC performed by Melba Hernandez DO at [facility] COLORECTAL CANCER SCREEN; COLON 09/10/2001 few diverticuli; repeat q 5 years DIABETIC EYE EXAM 12/08/2008 no diabetic retinopathy noted. _[facility] DIABETIC EYE EXAM 12/29/2009 no diabetic retinopathy, [facility]. DIABETIC EYE EXAM 12/11/2009 no diabetic retinopathy, [facility]. DILATION AND CURETTAGE (D&C) late term misscarriage FINE NEEDLE ASPIRATION BIOPSY, W/O IMAGING GUIDANCE; 1ST LESION 02/20/1997 Right breast [facility] PAP SCREEN 02/20/2004 negative for lesion or malignancy/satisfactory for evaluation [facility] PAP SCREEN 12/19/2008 negative for intraepithelial lesion or malignancy -[facility] MAMMOGRAM - BILATERAL 03/10/2004 birad code 2/benign findings. MAMMOGRAM - BILATERAL 05/04/2005 birad 2 MAMMOGRAM - BILATERAL 05/05/2006 [facility] code 2/benign findings MAMMOGRAM SCREENING BILATERAL 05/18/2009 birad code 2 MAMMOGRAM SCREENING BILATERAL 05/20/2010 birad code 1 MAMMOGRAM SCREENING-BILATERAL 05/08/2007 birad code 2, yearly mammograms appropriate MAMMOGRAM SCREENING-BILATERAL 05/12/2008 birad code 2, yearly recommended PAP SCREEN 03/01/2005 WNL PAP SCREEN 03/13/2006 normal/Dr Toscano PAP SCREEN 04/17/2007 satisfactory for evaluation PAP SCREEN 01/25/2011 wnl, -[facility] PAP SCREEN 09/13/2013 WNL- [facility] REMOVAL OF WRIST LESION Right 03/03/2021 ganglion cyst removed from base of right thumb REPAIR BLADDER DEFECT N/A 04/28/2023 VAGINAL SLING PROCEDURE FOR STRESS INCONTINENCE performed by Sachin Clemens MD at [facility] REPAIR OF VAGINA N/A 04/28/2023 COMBINED ANTEROPOSTERIOR COLPORRHAPHY, CYSTO performed by Sachin Clemens MD at [facility] Social History Socioeconomic History Marital status: Spouse name: Angel Number of children: 2 Years of education: Not on file Highest education level: Not on file Occupational History Occupation: guidance secretary Comment: retired - [employer] Tobacco Use Smoking status: Never Smokeless tobacco: Never Tobacco comments: No passive smoke exposure Vaping Use Vaping Use: Never used Substance and Sexual Activity Alcohol use: Yes Comment: rarely Drug use: No Sexual activity: Not on file Other Topics Concern Not on file Social History Narrative [facility] [place] INFORMATION:ENIVIRONMENTAL HISTORY:House: Two StoryType of Heating System: Forced air and oilAir Conditioning: Yes CentralIn the home: Humidifiers furnaceBasement: UnfinishedHomehave cockroaches: noIrritants in the home: Scented CandlesPatient's bedroom: FLOOR: second TYPE OF JAMI: CarpetingBeds: AMOUNT : 0, 1 TYPE OF BEDS: MattressPillows: AMOUNT: 0, 1 TYPE OF PILLOWS: Feather (down)Bedroom contains: Pets: 1 cat(s)Lives on a farm: noEntered By: Nolan Mccurdy M.D.07/26/2002 Lives with , for 47 years. Social Determinants of Health Financial Resource Strain: Not on file Food Insecurity: No Food Insecurity (11/16/2022) Hunger Vital Sign Worried About Running Out of Food in the Last Year: Never true Ran Out of Food in the Last Year: Never true Transportation Needs: Not on file Physical Activity: Not on file Stress: Not on file Social Connections: Not on file Intimate Partner Violence: Not on file Housing Stability: Not on file Current Outpatient Medications Medication Sig Dispense Refill Triamcinolone Acetonide 0.1 % External Cream (Aristocort) Apply topically to affected area 2 times a day. Apply to legs 80 g 1 Airborne Oral Tablet Chewable daily Fluticasone Propionate 50 MCG/ACT Nasal Suspension Administer 2 Sprays into each nostril daily as needed (for nasal congestion). Cholecalciferol 25 MCG (1000 UT) Oral Tablet Take 1 Tablet by mouth in the morning. Turmeric 500 MG Oral Capsule Take 1 Capsule by mouth in the morning. Metoprolol Succinate ER 50 MG Oral Tablet Extended Release 24 Hour (toPROL XL) Take 1 Tab by mouth daily. 90 Tablet 3 valACYclovir HCl 1 GM Oral Tablet (Valtrex) Take 2 Tablets by mouth in the morning and 2 Tablets before bedtime. For 1 day for cold sores. (Patient taking differently: Take 2 Tablets by mouth as needed. For 1 day for cold sores) 4 Tablet 11 Ketoconazole 2 % External Cream Apply topically to affected area daily. Apply to folds 60 g 5 Fish Oil 300 MG Oral Capsule Take by mouth. Polyethylene Glycol 3350 17 GM Oral Packet (MiraLax) Take 1 Packet by mouth at bedtime as needed for Constipation. 14 Packet 0 Albuterol Sulfate HFA 108 (90 Base) MCG/ACT Inhalation Aerosol Solution Inhale 2 Puffs by mouth every 4 hours as needed for Wheezing. 18 g 0 Desonide 0.05 % External Cream Apply to rash on left face twice a day for 1-2 weeks until resolved 60 g 1 Levothyroxine Sodium 100 MCG Oral Tablet (Levoxyl) Take 1 Tablet by mouth in the morning. (at least30 min prior to breakfast or other meds). 90 Tablet 1 Folic Acid 1 MG Oral Tablet Take 1 Tablet by mouth in the morning. 90 Tablet 3 Methotrexate Sodium 2.5 MG Oral Tablet Take 6 Tabs by mouth once a week. Fridays 78 Tablet 1 Nitrofurantoin Monohyd Macro 100 MG Oral Capsule (Macrobid) Take 1 Capsule by mouth in the morning and 1 Capsule before bedtime. Do all this for 7 days. 14 Capsule 0 No current facility-administered medications for this visit. Review of patient's allergies indicates: Allergen Reactions Pradeep Inhibitors cough Bactrim Abdominal pain Abdomen pain Metformin Diarrhea Penicillins rash Sulfamethoxazole Unknown Trimethoprim Unknown Family History Problem Relation Age of Onset Cancer Aunt (Unspecified) breast Cancer Father colon Kidney disease Father Cancer Grandmother (Maternal) (dec) colon Lymphoma Mother Other (Other) Mother pseudogout Arthritis Brother spinal disease OBJECTIVE: BP 138/76 | Pulse 73 | Temp 35.8 C (96.5 F) | Resp 18 | Wt 88 kg (194 lb) | LMP 08/26/2003 | SpO2 98% | BMI 34.37 kg/m | BSA 1.98 m Wt Readings from Last 1 Encounters: 07/27/23 88 kg (194 lb) General appearance: awake, alert, no apparent distress Abdominal Exam: back: no CVA tenderness and abd: +suprapubic tenderness to palpation, no R/R/G, +BS Respiratory: clear to auscultation, no rhonchi, no wheezes, and no crackles Heart: regular rate, regular rhythm, no murmurs , no rubs, and no gallops Skin/Integumentary: warm, dry Results for orders placed or performed in visit on 07/27/23 URINALYSIS, POINT OF CARE (ENTER/EDIT) Result Value Ref Range Color, Urine Erika Yellow or Light Yellow Clarity, Urine Slightly Cloudy Clear Glucose, Urine Negative Negative mg/dL Bilirubin, Urine Negative Negative Ketone, Urine Negative Negative mg/dL Specific [place], Urine 1.030 1.003 - 1.030 Blood, Urine Trace-intact Negative pH, Urine 5.5 5.0 - 7.5 units Protein, Urine Negative Negative mg/dL Urobilinogen, Urine 0.2 0.2 - 1.0 mg/dL Nitrite, Urine Positive Negative Esterase, Urine Negative Negative *Note: Due to a large number of results and/or encounters for the requested time period, some results have not been displayed. A complete set of results can be found in Results Review. Patient Instructions Macrobid (antibiotic) twice a day for 7 days. Do not stop early. Drink plenty of fluids and increase fluid intake over next 48-72 hours. Take all medications as prescribed, even if you are feeling better sooner so as to reduce risk of reinfection and to reduce the chance of antibiotic resistance developing. If your urine culture shows resistance, we will contact you and switch medications. If your urine culture was negative, we will let you know. Otherwise, assume that if you do not hear from us, the bacteria that grew will likely be treated byyour antibiotic. F/U with PCP with no improvement in 3-5 days. Go immediately to the ED with any change or worsening symptoms including chills, fevers, back pain. Assessment: UTI symptoms (Primary) - URINALYSIS, POINT OF CARE (ENTER/EDIT) - CULTURE, URINE, QUANTITATIVE - Nitrofurantoin Monohyd Macro 100 MG Oral Capsule (Macrobid); Take 1 Capsule by mouth in the morning and 1 Capsule before bedtime. Do all this for 7 days. Acute UTI - URINALYSIS, POINT OF CARE (ENTER/EDIT) - CULTURE, URINE, QUANTITATIVE - Nitrofurantoin Monohyd Macro 100 MG Oral Capsule (Macrobid); Take 1 Capsule by mouth in the morning and 1 Capsule before bedtime. Do all this for 7 days. Consistent with UTI. Will start meds and follow culture Follow Up: Return for Patient to follow up with Primary Care Provider as directed. | For: Patient to follow up with Primary Care Provider as directed Patient goals for plan of care were discussed Xavi Ann PA-C [address] [address] documented in this encounter Nursing Notes * Aleida Shipman LPN - 07/27/2023 5:38 PM EST Lashonda Hardy is a 68 year old female who presents to walk-in clinic today complaining of UTI symptoms of urgency and frequency with urination. Had bladder tacked up in April. Pt alone in room. documented in this encounter Plan of Treatment Upcoming Encounters Date Type Department Care Team (Late st Contact Info) Description 08/15/2023 8:20 AM EST Office Visit Family Practice [facility] [place] [address] [place] [address] Eric Spencer, [address] [place] [address] 11/22/2023 9:00 AM EDT [facility] [address] [place] [address] Im, Nurse Annual Wellness [facility] [address] [facility] [place] [place] [address] 02/26/2024 9:45 AM EDT Office Visit Dermatology [facility] [address] [facility] [place] [address] Harris Lanza MD [address] [facility] [place] [address] 03/18/2024 12:30 PM EDT Office Visit Dermatology, Tanna Christianson [address] [place] [place] [address] Mary Schmidt PA-C [address] [place] [address] [place] [address] 07/31/2024 9:20 AM EST Office Visit Rheumatology [place] [address] [employer] [place] [address] Imer Quijano MD [address] [employer] [place], [place] [address] Pending Results Name Type Priority Associated Diagnoses Date /Time CULTURE, URINE, QUANTITATIVE Lab STAT UTI symptoms Acute UTI 07/27/2023 6:05 PM EST Scheduled Procedures Name Priority Associated Diagnoses Date/Ti me COLONOSCOPY FLEXIBLE PROXIMAL DIAGNOSTIC Recall History of colon polyps Health Maintenance Due Date Last Done Comments HbA1c 05/03/2023 10/31/2022, 12/0 12/2021, 01/24/2022, Additional history exists COVID-19 Vaccine ( [...] 023, 01/24/2022, 12/04/2020, Additional history exists GFR 07/27/2024 07/27/2023, 11/2022, 04/20/2023, Additional history exists COLONOSCOPY-EVERY 3 YRS AGES [...] this encounter Medical Devices Implanted Type Area Creosoting Engineer Device Identifier Shelf Expiration Date Model / Serial / Lot Ralph Rodriguez - [id number] Implanted:Qty: 1 on 04/28/2023 by Sachin Clemens MD at [facility] N/A: Vagina [employer] 02/25/2024 [id number] / / [id number] documented as of this encounter Procedures Procedure Name Priority Date/Time Associated Diagnosis Comments URINALYSIS, POINT OF CARE (ENTER/EDIT) Routine 07/27/2023 5:45 PM EST UTI symptoms Acute UTI documented in this encounter Results * (ABNORMAL) URINALYSIS, POINT OF CARE (ENTER/EDIT) (07/27/2023 5:45 PM EST) Color, Urine Erika Yellow or Light Yellow Clarity, Urine Slightly Cloudy Clear Glucose, Urine Negative Negative mg/dL Bilirubin, Urine Negative Negative Ketone, Urine Negative Negative mg/dL Specific [place], Urine 1.030 1.003 - 1.030 Blood, Urine Trace-intact Negative pH, Urine 5.5 5.0 - 7.5 units Protein, Urine Negative Negative mg/dL Urobilinogen, Urine 0.2 0.2 - 1.0 mg/dL Nitrite, Urine Positive Negative Esterase, Urine Negative Negative Urine 07/27/2023 5:45 PM EST Xavi Ann PA-C LAB POINT O F CARE TEST ENTER/EDIT ORDERABLES documented in this encounter Visit Diagnoses Diagnosis UTI symptoms- Primary Other symptoms involving urinary system Acute UTI Urinary tract infection, site not specified documented in this encounter Advance Directives Latest Code Status on File Code Status Date Activated Date Inactivated Comments Full Code 04/28/2023 9:21 AM 04/28/2023 5:40 PM Thi s order reflects the patients wishes and were consensually agreed upon. Question Answer Comments Discussion of Advance Directives occurred with: Not Discussed due to patient's condition Care Teams Cooker Meal Relationship Specialty Start Date End Date Eric Spencer DO [address] [place] [address] PCP - General Family Medicine 05/03/18 documented as of this encounter"
--- OUTSIDE RECORDS SUMMARY | 2023-07-28 14:02 | External Medical Summary | Summary of Care ---
Author Name Unknown Organization [facility] [address] [facility] [address] Phone [phone] Care Team Providers Care Technical Account Manager Name Role Phone Eric Spencer DO Primary Care Provider [phone] Encounter Details Date Type Department Care Team (Late st Contact Info) Description 07/23/2023 [facility] [address] [facility] [place] [address] Saundra Mendoza PA-C [address] [facility] [place] [address] Allergies Active Allergy Reactions Criticality Noted Date Comments Pradeep Inhibitors 04/27/2004 cough Bactrim Abdominal pain 09/01/2008 Abdomen pain Metformin Diarrhea 04/26/2018 Penicillins 11/10/1999 rash Sulfamethoxazole Unknown 12/10/2020 Trimethoprim Unknown 12/10/2020 documented as of this encounter (statuses as of 07/23/2023) Medications Medication Sig Dispensed Refills Start Date [...] as of this encounter (statuses as of 07/23/2023) Active Problems Problem Noted Date Diagnosed Date TAMAR (obstructive sleep apnea) 07/17/2023 ASCUS of cervix with negative high risk HPV 03/20 Irritable bowel syndrome wit h both constipation and diarrhea 05/25/2022 History of 2019 novel coronavirus disease (COVID -19) 07/01/2021 Type 2 diabetes mellitus with diabetic dermatiti s 11/06/2018 Encounter for long-term (current) use of medicat ions 05/03/2018 Rheumatoid arthritis of [facility] sites with negative rheumatoid factor 08/17/2017 Essential hypertension with goal blood pressure less than 140/90 12/15/2015 Hypothyroidism 04/15/2015 Idiopathic urticaria 07/13/2012 Type 2 diabetes mellitus wit h hemoglobin A1c goal of less than 7.0% 04/16/2009 Overview: Per Diabetes Taxonomy. ICD-10 update of inactive term ATTN DEFIC NONHYPERACT 08/17/2005 Allergic rhinitis 07/26/2002 documented as of this encounter (statuses as of 07/23/2023) Resolved Problems Problem Noted Date Diagnosed Date [...] as of this encounter (statuses as of 07/23/2023) Immunizations Name Administration Dates Next Due COVID-19 mRNA, LNP-s, No Pre serve, 2-Dose Series ([employer]) 04/09/2021,09/05/2020,08/15/2020 Covid-19, Mrna, Lnp-s, Pf, B ivalent, [...] encounter Miscellaneous Notes * Telephone Encounter - Saundra Mendoza PA-C - 07/23/2023 11:02 PM EST . documented in this encounter Plan of Treatment Upcoming Encounters Date Type Department Care Team (Late st Contact Info) Description 07/26/2023 8:40 AM EST Office Visit Rheumatology [facility] [address] [place] [address] [address] Imer Quijano MD [address] [place] [address] 08/29/2023 6:20 PM EDT Office Visit Family Practice [facility] [place] [address] [facility] [place] [address] Eric Spencer DO [address] [facility] [place] [place] [address] 11/22/2023 9:00 AM EDT Nurse Only Ancillary [facility] [place] [address] [place] [address] Im, Nurse Annual Wellness [facility] [address] [facility] [address] [place], [place] [address] 02/26/2024 9:45 AM EDT Office Visit Dermatology [facility] [place] [address] [facility] [place] [address] Harris Lanza MD [address] [facility] [address] [place], [place] [address] 03/18/2024 12:30 PM EDT Office Visit Dermatology, Tanna Christianson [address] [place] [place] [address] Mary Schmidt PA-C [address] [place] [place] [address] Scheduled Procedures Name Priority Associated Diagnoses Date/Ti me COLONOSCOPY FLEXIBLE PROXIMAL DIAGNOSTIC Recall History of colon polyps Health Maintenance Due Date Last Done Comments HbA1c 05/03/2023 10/31/2022, 1212/2021, 01/24/2022, Additional history exists COVID-19 Vaccine ( [...] 12/04/2020, Additional history exists GFR 04/24/2024 04/24/2023, 1107/2022, 04/10/2023, Additional history exists COLONOSCOPY-EVERY 3 YRS [...] this encounter Medical Devices Implanted Type Area Natural Resource Specialist Device Identifier Shelf Expiration Date Model / Serial / Lot Ralph Rodriguez - [id number] Implanted:Qty: 1 on 04/28/2023 by Sachin Clemens MD at OR [facility] N/A: Vagina [employer] 02/25/2024 [id number] / / [id number] documented as of this encounter Advance Directives Latest Code Status on File Code Status Date Activated Date Inactivated Comments Full Code 04/28/2023 9:21 AM 04/28/2023 5:40 PM Thi s order reflects the patients wishes and were consensually agreed upon. Question Answer Comments Discussion of Advance Directives occurred with: Not Discussed due to patient's condition Care Teams Technical Account Manager Relationship Specialty Start Date End Date Eric Spencer DO [address] [place] [address] PCP - General Family Medicine 05/03/18 documented as of this encounter
--- OUTSIDE RECORDS SUMMARY | 2023-07-28 14:02 | External Medical Summary ---
Author Name Unknown Address Unknown Organization K09[facility] [place] [id number] Laboratory Report Ordering Provider Test Date Status ROSALIND ZHANGLUIS 07/27/2023 15:13:34 Final Observation Date Value Abnormality Reference (Units ) Status WBC, Total 07/27/2023 15:13:34 7.93 4.00-10.8 0 (K/uL) Final RBC 07/27/2023 15:13:34 4.23 3.85-5.15 (M/uL) Final Hemoglobin 07/27/2023 15:13:34 13.1 12.0-15.3 (g/dL) Final HCT 07/27/2023 15:13:34 38.7 36.0-45.2 (%) Final MCV 07/27/2023 15:13:34 91.5 81.5-97.5 (fL) Final MCH 07/27/2023 15:13:34 31.0 27.0-34.0 (pg) Final MCHC 07/27/2023 15:13:34 33.9 32.0-36.0 (g/dL) Final RDW 07/27/2023 15:13:34 14.3 11.5-15.5 (%) Final Platelets 07/27/2023 15:13:34 250 140-400 (K /uL) Final MPV 07/27/2023 15:13:34 10.2 6.6-11.1 ( fL) Final Performing Location [facility] [place] [address]
--- OUTSIDE RECORDS SUMMARY | 2023-07-28 14:02 | External Medical Summary ---
Author Name Unknown Address Unknown Organization [id number]:[facility] [place] [address] [facility] [address] Laboratory Report Ordering Provider Test Date Status RICHY LARA 07/27/2023 15:13:34 Final Observation Date Value Abnormality Reference (Units ) Status HbA1C 07/27/2023 15:13:34 7.9 Above high normal 4. 0-5.6 (%) Final The use of HbA1c to monitor glycemic status is based on normal hemoglobin and HbA composition. This test should not be used in patients with abnormal hemoglobin that affects the half life of the red blood cell or the in vivo glycation rates. Glucose, estimated average 07/27/2023 15:13:34 180 Above high normal <126 (mg/dL) Alex sanchez Performing Location [facility] [place] [address] [facility] [address]
--- OUTSIDE RECORDS SUMMARY | 2023-07-28 14:02 | External Medical Summary | Summary of Care ---
Author Name Unknown Organization [facility] Address [address] [place] [address] Phone [phone] Care Team Providers Care Machine Pack Assembler Name Role Phone Eric Spencer DO Primary Care Provider [phone] Reason for Visit * Reason Comments Outpatient Testing Encounter Details Date Type Department Care Team (Late st Contact Info) Description 07/27/2023 3:10 PM EST Laboratory Laboratory [facility] [place] [address] [place] [phone] [facility] [address] [place] [address] Rheumatoid arthritis of multiple sites with negative rheumatoid factor ([facility]); Encounter for long-term (current) use of medications; Type 2 diabetes mellitus with diabetic dermatitis, unspecified whether truck terminal manager insulin use ([facility]) Allergies Active Allergy Reactions Criticality Noted Date [...] of medicat ions 05/03/2018 [facility] with negative rheumatoid factor 08/17/2017 [...] mRNA, LNP-s, No Pre serve, 2-Dose Series ([employer]) 04/09/2021,09/05/2020,08/15/2020 Covid-19, Mrna, Lnp-s, Pf, B ivalent, [...] State [place] [address] [place] [address] Eric Spencer, DO [address] [place] [address] 11/22/2023 9:00 AM EDT Nurse Only Ancillary [place] [address] [place] [address] Im, Nurse Annual Wellness [facility] [address] [facility] [place] [address] 02/26/2024 9:45 AM EDT Office Visit Dermatology [facility] [address] [facility] [place] [address] Harris Lanza MD [address] [facility] [place] [address] 03/18/2024 12:30 PM EDT Office Visit Dermatology, [place]ela CarterTanna [address] [place] [address] Mary Schmidt PA-C [address] [place] [address] 07/31/2024 9:20 AM EST Office Visit Rheumatology [place] [address] [address] [place] [address] Imer Quijano MD [facility] [employer] [place], [place] [address] Pending Results Name Type Priority Associated Diagnoses Date /Time COMPREHENSIVE METABOLIC PANEL Lab Routine Rheumatoid arthritis of multiple sites with negative rheumatoid factor (HCC) Encounter for long-term (current) use of medications 07/27/2023 3:13 PM EST HEMOGLOBIN A1C Lab Routine Type 2 diabetes mellitus with diabetic dermatitis, unspecified whether truck terminal manager insulin use (HCC) 07/27/2023 3:13 PM EST CBC WITH WBC DIFFERENTIAL Lab Routine Rheumatoid arthritis of multiple sites with negative rheumatoid factor (HCC) Encounter for long-term (current) use of medications 07/27/2023 3:13 PM EST CBC Lab Routine Rheumatoid arthritis of multiple sites with negative rheumatoid factor (HCC) Encounter for long-term (current) use of medications 07/27/2023 3:13 PM EST DIFFERENTIAL, AUTOMATED Lab Routine Rheumatoid arthritis of multiple sites with negative rheumatoid factor (HCC) Encounter for long-term (current) use of medications 07/27/2023 3:13 PM EST Scheduled Procedures Name [...] this encounter Medical Devices Implanted Type Area Warranty Administrator Device Identifier Shelf Expiration Date Model / Serial / Lot Sling Comfort Rodriguez - [id number] Implanted:Qty: 1 on 04/28/2023 by Sachin Clemens MD at OR [facility] N/A: Vagina [employer] 02/25/2024 [id number] / / [id number] documented as of this encounter Visit Diagnoses Diagnosis Rheumatoid arthritis of multiple sites with negative rheumatoid factor (HCC) Encounter for long-term (current) use of medications Encounter for long-term (current) use of other medications Type 2 diabetes mellitus with diabetic dermatitis, unspecified whether truck terminal manager insulin use (HCC) documented in this encounter Advance Directives Latest Code Status on File Code Status Date Activated Date Inactivated Comments Full Code 04/28/2023 9:21 AM 04/28/2023 5:40 PM Thi s order reflects the patients wishes and were consensually agreed upon. Question Answer Comments Discussion of Advance Directives occurred with: Not Discussed due to patient's condition Care Teams Machine Pack Assembler Relationship Specialty Start Date End Date Eric Spencer DO [address] [place] [address] PCP - General Family Medicine 05/03/18 documented as of this encounter
--- OUTSIDE RECORDS SUMMARY | 2023-07-28 14:02 | External Medical Summary ---
Author Name Unknown Address Unknown Organization K09:[facility] [place] [address] Laboratory Report Ordering Provider Test Date Status VICENTEROSALIND RIVERALUIS 07/27/2023 15:13:34 Final Observation Date Value Abnormality Reference (Units ) Status SYNC LEUKOCYTES IN BLOOD BY AUTOMATED COUNT 07/27/2023 15:13:34 7.93 4.00-10.80 (K/uL) Final Segs 07/27/2023 15:13:34 51.5 40.0-75.0 (%) Final Lymphs % 07/27/2023 15:13:34 36.2 18.0-42.0 (%) Final Monos 07/27/2023 15:13:34 8.7 1.0-11.0 (%) Final Eosinophils 07/27/2023 15:13:34 3.3 0.0-6.0 (%) Final Basos 07/27/2023 15:13:34 0.3 0.0-2.0 (%) Final Absolute Segs 07/27/2023 15:13:34 4.09 1.80-7.70 (K/uL) Final Lymphs, absolute 07/27/2023 15:13:34 2.87 1.00-4.80 (K/ul) Final Monos, Abs 07/27/2023 15:13:34 0.69 0.00-1.10 (K/uL) Final Eos, Abs 07/27/2023 15:13:34 0.26 0.00-0.70 (K/uL) Final Basos, Abs 07/27/2023 15:13:34 0.02 0.00-0.20 (K/uL) Final Performing Location [facility] [place] [address]
--- OUTSIDE RECORDS SUMMARY | 2023-07-28 14:03 | External Medical Summary | Summary of Care ---
Author Name Unknown Organization [facility] Address [address] [place] [address] Phone [phone] Care Team Providers Care Bilingual Operator Name Role Phone Eric Spencer DO Primary Care Provider [phone] Reason for Visit * Precert (Within 10 days (routine)) - Authorized Specialty Diagnoses / Procedures Referred By Contac t Referred To Contact Radiology Diagnoses Diarrhea, unspecified type Procedures [facility] HEPATOBILIARY SYSTEM Sanudra Mendoza PA-C [address] [facility] [place] [address] Referral ID Status Reason Start Date Expiration Date V isits Requested Visits Authorized [id number] Authorized Precert 05/10/2023 11/06/2023 [id number] Encounter Details Date Type Department Care Team (Latest Contact Info) Description 06/15/2023 9:27 AM EST - 06/15/2023 11:59 PM EST Hospital Encounter Radiology, [address] [address] Arrived Discharge Disposition: Home - Self Care Allergies Active Allergy Reactions Criticality Noted Date Comments Pradeep Inhibitors 04/27/2004 cough Bactrim Abdominal pain 09/01/2008 Abdomen pain Metformin Diarrhea 04/26/2018 Penicillins 11/10/1999 rash Sulfamethoxazole Unknown 12/10/2020 Trimethoprim Unknown 12/10/2020 documented as of this encounter (statuses as of 06/16/2023) Medications Medication Sig Dispensed Refills Start Date [...] to folds 60 g 5 01/02/2023 Active Levothyroxine Sodium 100 MCG Oral Tablet (Levoxyl)Indications: Acquired hypothyroidism Take 1 Tablet by mouth in the morning. (at least 30 min prior to breakfast or other meds). 90 Tablet 1 04/05/2023 Active Fish Oil 300 MG Oral Capsule [...] for Wheezing. 18 g 0 05/26/2023 Active documented as of this encounter (statuses as of 06/16/2023) Active Problems Problem Noted Date Diagnosed Date ASCUS of cervix with negative high risk HPV 03/20 Irritable bowel syndrome wit h both constipation and diarrhea 05/25/2022 History of 2019 novel coronavirus disease (COVID -19) 07/01/2021 Type 2 diabetes mellitus with diabetic dermatiti s 11/06/2018 Encounter for long-term (current) use of medicat ions 05/03/2018 Rheumatoid arthritis of [facility] sites with negative rheumatoid factor 08/17/2017 Essential hypertension with goal blood pressure less than 140/90 12/15/2015 Hypothyroidism 04/15/2015 Idiopathic urticaria 07/13/2012 Type 2 diabetes mellitus wit h hemoglobin A1c goal of less than 7.0% 04/16/2009 Overview: Per Diabetes Taxonomy. ICD-10 update of inactive term ATTN DEFIC NONHYPERACT 08/17/2005 Allergic rhinitis 07/26/2002 documented as of this encounter (statuses as of 06/16/2023) Resolved Problems Problem Noted Date Diagnosed Date [...] as of this encounter (statuses as of 06/16/2023) Immunizations Name Administration Dates Next Due COVID-19 mRNA, LNP-s, No Pre serve, 2-Dose Series ([employer]) 04/09/2021,09/05/2020,08/15/2020 Covid-19, Mrna, Lnp-s, Pf, B ivalent, [...] Care Team (Late st Contact Info) Description 07/12/2023 1:00 PM EST Office Visit Sleep Disorders, [facility] [address] [address] Swetha Nieves MD [address] [id number] 07/18/2023 5:40 PM EST Office Visit Family Practice [place] [address] [facility], [place] [address] Eric Spencer DO 200 [facility] [place], [place] [address] 07/26/2023 8:40 AM EST Office Visit Rheumatology [place] [id number] [facility] [place], [place] [address] Imer Quijano MD [address] [facility] [place], [place] [address] 11/22/2023 9:00 AM EDT Nurse Only Ancillary [address] [place], [place] [address] Im, Nurse Annual Wellness [facility] [address] [facility] [address] [place], [place] [address] 02/26/2024 9:45 AM EDT Office Visit Dermatology [facility] [address] [facility] [place] [address] Harris Lanza MD [address] [facility] [address] [place], [place] [address] 03/18/2024 12:30 PM EDT Office Visit Dermatology, Tanna Christianson [address] [place] [address] Mary Schmidt PA-C [address] [place] [address] Scheduled Procedures Name Priority Associated Diagnoses Date/Ti [...] this encounter Medical Devices Implanted Type Area Speech Pathology Supervisor Device Identifier Shelf Expiration Date Model / Serial / Lot Danieling Comfort Rodriguez - [id number] Implanted:Qty: 1 on 04/28/2023 by Sachin Clemens MD at OR [facility] N/A: Vagina [employer] 02/25/2024 [id number] / / [id number] documented as of this encounter Procedures Procedure Name Priority Date/Time Associated Diagnosis Comments NM HEPATOBILIARY SYSTEM Routine 06/15/2023 11:21 AM EST Diarrhea, unspecified type documented in this encounter Administered Medications Inactive Administered Medications - up to 3 most recent administrations Medication Order MAR Action Action Date Dose Rate Site Technetium Tc 99m Mebrofenin (Choletec) inj 5 millicurie 5 millicurie, Intravenous, ONCE, On [place] 06/15/23 at 0951, For 1 dose, Radiology Medication Routing (Non-IR) Given 06/15/2023 10:10 AM EST 5.2 millicuries Hand Right documented in this encounter Advance Directives Latest Code Status on File Code Status Date Activated Date Inactivated Comments Full Code 04/28/2023 9:21 AM 04/28/2023 5:40 PM Thi s order reflects the patients wishes and were consensually agreed upon. Question Answer Comments Discussion of Advance Directives occurred with: Not Discussed due to patient's condition Care Teams Bilingual Operator Relationship Specialty Start Date End Date Eric Spencer DO [address] [place] [address] PCP - General Family Medicine 05/03/18 documented as of this encounter
--- OUTSIDE RECORDS SUMMARY | 2023-07-28 14:03 | External Medical Summary | Summary of Care ---
Author Name Unknown Organization [facility] Address [address] [facility] [address] Phone [phone] Care Team Providers Care Boilermaker Fitter Name Role Phone Eric Spencer DO Primary Care Provider [phone] Reason for Visit * Reason Comments Lesion Lesion left side of face and upper lip. Skin Check Encounter Details Date Type Department Care Team (Latest Contact Info) Description 06/15/2023 2:50 PM EST Office Visit Dermatology, Tanna Christianson [address] [place] [address] Mary Schmidt PA-C [address] [place] [address] Rash and nonspecific skin eruption*; Post-inflammatory hyperpigmentation Allergies Active Allergy Reactions Criticality Noted Date Comments Pradeep Inhibitors 04/27/2004 cough Bactrim Abdominal pain 09/01/2008 Abdomen pain Metformin Diarrhea 04/26/2018 Penicillins 11/10/1999 rash Sulfamethoxazole Unknown 12/10/2020 Trimethoprim Unknown 12/10/2020 documented as of this encounter (statuses as of 06/15/2023) Medications Medication Sig Dispensed Refills Start Date [...] until resolved 60 g 1 06/15/2023 Active documented as of this encounter (statuses as of 06/15/2023) Active Problems Problem Noted Date Diagnosed Date ASCUS of cervix with negative high risk HPV 03/20 Irritable bowel syndrome wit h both constipation and diarrhea 05/25/2022 History of 2019 novel coronavirus disease (COVID -19) 07/01/2021 Type 2 diabetes mellitus with diabetic dermatiti s 11/06/2018 Encounter for long-term (current) use of medicat ions 05/03/2018 Rheumatoid arthritis of [facility] sites with negative rheumatoid factor 08/17/2017 Essential hypertension with goal blood pressure less than 140/90 12/15/2015 Hypothyroidism 04/15/2015 Idiopathic urticaria 07/13/2012 Type 2 diabetes mellitus wit h hemoglobin A1c goal of less than 7.0% 04/16/2009 Overview: Per Diabetes Taxonomy. ICD-10 update of inactive term ATTN DEFIC NONHYPERACT 08/17/2005 Allergic rhinitis 07/26/2002 documented as of this encounter (statuses as of 06/15/2023) Resolved Problems Problem Noted Date Diagnosed Date [...] as of this encounter (statuses as of 06/15/2023) Immunizations Name Administration Dates Next Due COVID-19 mRNA, LNP-s, No Pre serve, 2-Dose Series ([employer]) 04/09/2021,09/05/2020,08/15/2020 Covid-19, Mrna, Lnp-s, Pf, B ivalent, 30 Mcg, IM, 12 yrs and above ([employer]) 04/20/2023 H1N1 2009 Influenza, IM 07/29/2009 Hepatitis [...] on file documented as of this encounter Progress Notes * Mary Schmidt PA-C - 06/15/2023 2:19 PM EST SUBJECTIVE: CC: Lesion left side of face and upper lip HPI: Lashonda Hardy is a 68 year old female who is an established patient seen for rash and spot onupper lip. Patient last visit on 02/[address] Lanza. Rash on L side of face end of Feb/Mar. Itchy and burning. Had an ointment/cream but cannot remember name but thinks made it worse. Did get several vaccines around that time- not sure if related. Recently had bronchitis/sinusitis and on prednisone (short course) and improved. Spot on R upper lip. Present for about 2-3 months. Improving. Not sure if was cold sore or what it was. REVIEW OF SYSTEMS: See HPI- all other findings negative Constitutional: (-) fever, chills, sweats, weight loss Cardiovascular: (-) lower extremity edema Skin: (-) no rash or new or changing moles or skin lesions MEDICA TIONS: Current Outpatient Medications Medication Sig Dispense Refill [...] Tab by mouth daily. 90 Tablet 3 Folic Acid 1 MG Oral Tablet Take 1 Tablet by mouth in the morning. 90 Tablet 3 valACYclovir HCl 1 GM [...] daily. Apply to folds 60 g 5 Levothyroxine Sodium 100 MCG Oral Tablet (Levoxyl) Take 1 Tablet by mouth in the morning. (at least30 min prior to breakfast or other meds). 90 Tablet 1 Fish Oil 300 MG Oral Capsule Take by mouth. Methotrexate Sodium 2.5 MG Oral Tablet Take 6 Tabs by mouth once a week. Fridays 78 Tablet 1 Polyethylene Glycol 3350 17 GM Oral Packet (MiraLax) Take 1 Packet by mouth at bedtime as needed for Constipation. 14 Packet 0 Albuterol Sulfate HFA 108 (90 Base) MCG/ACT Inhalation Aerosol Solution Inhale 2 Puffs by mouth every 4 hours as needed for Wheezing. 18 g 0 No current facility-administered medications for this visit. ALLERG Y: Pradeep inhibitors, Bactrim, Metformin, Penicillins, Sulfamethoxazole, and Trimethoprim OBJECTIVE: GEN: Healthy, alert, no distress, appears oriented, pleasant, and cooperative. PSYCH: Appropriate mood and affect, alert SKIN: Detailed exam of face was completed and are within normal limits with the following exceptions: 1. Erythematous scaly plaque on L cheek 2. PIH on R upper cutaneous lip ASSESS MENT/PLAN: Allergic contact? -Better with prednisone -Prescribed desonide cream BID x 2 weeks. -If no improvement she will send me MyG message 2. Favor PIH (?Previous cold sore/inflamed hair follicle) -Appears to be resolving. If not gone in next 3-4 months she will send me a MyG message for re-assessment. Patient alone today. Follow-up: 1 year- would like to transfer care to me for FBSE Photos taken 1-5, patient consented to photos taken. Patient Phone Numbers Applicable photos (if any) and chart reviewed by Dr. Jarad Pak The patient was encouraged to contact me with any further questions or concerns. Mary Schmidt PA-C 06/15/2023 2:19 PM documented in this encounter Nursing Notes * Aleida Shipman LPN - 06/15/2023 2:17 PM EST Chief Complaint Patient presents with Lesion Lesion left side of face and upper lip. Skin Check Last visit 02/17/2023 Dr. Lanza documented in this encounter Plan of Treatment Upcoming Encounters Date Type Department Care Team (Late st Contact Info) Description 07/12/2023 1:00 PM EST Office Visit Sleep Disorders, [address] [place] [address] Swetha Nieves MD [address] [place] [address] 07/18/2023 5:40 PM EST [facility] [place] [address] [place] [address] Eric Spencer, [address] [place] [address] 07/26/2023 8:40 AM EST Office Visit Rheumatology [place] [address] [place] [address] Imer Quijano MD [facility] [place] [address] 11/22/2023 9:00 AM EDT Nurse Only Ancillary [facility] [address] [facility] [address] [place], [place] [address] Im, Nurse Annual Wellness [facility] [address] [facility] [address] [place], [place] [address] 02/26/2024 9:45 AM EDT Office Visit Dermatology [facility] [place] [address] [facility] [place] [address] Harris Lanza MD [address] [facility] [place] [address] 03/18/2024 12:30 PM EDT Office Visit Dermatology, Tanna Christianson [address] [place] [address] Mary Schmidt PA-C [address] [place] [address] Scheduled Procedures Name Priority Associated Diagnoses Date/Ti [...] this encounter Medical Devices Implanted Type Area Sewer Device Identifier Shelf Expiration Date Model / Serial / Lot Ralph Rodriguez - [id number] Implanted:Qty: 1 on 04/28/2023 by Sachin Clemens MD at OR [facility] N/A: Vagina [employer] 02/25/2024 [id number] / / [id number] documented as of this encounter Visit Diagnoses Diagnosis Rash and nonspecific skin eruption- Primary Rash and other nonspecific skin eruption Post-inflammatory hyperpigmentation Dyschromia, unspecified documented in this encounter Advance Directives Latest Code Status on File Code Status Date Activated Date Inactivated Comments Full Code 04/28/2023 9:21 AM 04/28/2023 5:40 PM Thi s order reflects the patients wishes and were consensually agreed upon. Question Answer Comments Discussion of Advance Directives occurred with: Not Discussed due to patient's condition Care Teams Boilermaker Fitter Relationship Specialty Start Date End Date Eric Spencer DO [address] [place] [address] PCP - General Family Medicine 05/03/18 documented as of this encounter
--- OUTSIDE RECORDS SUMMARY | 2023-07-28 14:03 | External Medical Summary | Summary of Care ---
Author Name Unknown Organization [facility] Address [address] [facility] [address] Phone [phone] Care Team Providers Care Commercial Development Manager Name Role Phone Eric Spencer DO Primary Care Provider [phone] Reason for Visit * Reason Comments Lesion Lesion left side of face and upper lip. Skin Check Encounter Details Date Type Department Care Team (Latest Contact Info) Description 06/15/2023 2:50 PM EST Office Visit Dermatology, Tanna Christianson [address] [place] [address] Mary Schmidt PA-C [address] [place] [address] Rash and nonspecific skin eruption*; Post-inflammatory hyperpigmentation [...] of medicat ions 05/03/2018 Rheumatoid arthritis of [facility] sites with negative rheumatoid factor 08/17/2017 Essential [...] mRNA, LNP-s, No Pre serve, 2-Dose Series ([employer]) 04/09/2021,09/05/2020,08/15/2020 Covid-19, Mrna, Lnp-s, Pf, B ivalent, 30 Mcg, IM, 12 yrs and above ([employer]) 04/20/2023 H1N1 2009 Influenza, IM 07/29/2009 Hepatitis [...] as of this encounter Progress Notes * Leander Pak MD - 06/15/2023 2:50 PM EST I have reviewed the relevant notes and photographs taken by CYNTHIA Holloway. I have reviewed and agree with the assessment and plan. Leander Pak MD * Mary Schmidt PA-C - 06/15/2023 2:19 [...] any) and chart reviewed by Dr. Jarad aPk The patient was encouraged to contact me [...] 1:00 PM EST Office Visit Sleep Disorders, [facility] [address] [place] [address] Swetha Nieves MD [address] [facility] [place] [address] 07/18/2023 5:40 PM EST Office Visit [facility] [place] 200 [facility] [place] [address] Eric Spencer, DO [address] [facility] [place] [address] 07/26/2023 8:40 AM EST Office Visit Rheumatology [facility] [address] [facility] [place], [place] [address] Imer Quijano MD [address] [facility] [place], [place] [address] 11/22/2023 9:00 AM EDT Nurse Only Ancillary [facility] 200 [facility] [place], [place] [address] Im, Nurse Annual Wellness [facility] 200 [facility] [place], [place] [address] 02/26/2024 9:45 AM EDT Office Visit Dermatology [facility] [address] [facility] [place], [place] [address] Harris Lanza MD [address] [facility] [place], [place] [address] 03/18/2024 12:30 PM EDT Office Visit Dermatology, Tanna Christianson [address] [place] [address] Mary Schmidt PA-C [address] [place] [phone] Scheduled Procedures Name Priority Associated Diagnoses Date/Ti [...] this encounter Medical Devices Implanted Type Area Kindergarten Instructional Assistant Device Identifier Shelf Expiration Date Model / Serial / Lot Ralph Rodriguez - [id number] Implanted:Qty: 1 on 04/28/2023 by Sachin Clemens MD at OR [facility] N/A: Vagina [employer] 02/25/2024 [id number] / / [id number] documented as of this encounter Procedures Procedure Name Priority Date/Time Associated Diagnosis Comments DERM IMAGE (SITE) Routine 06/15/2023 Rash and nonspecific skin eruption Post-inflammatory hyperpigmentation documented in this encounter Results * DERM IMAGE (SITE) (06/15/2023) 06/15/2023 Mary Schmidt PA-C DIGITAL PHOTOGRAPHY documented in this encounter Visit Diagnoses Diagnosis Rash and [...] Discussed due to patient's condition Care Teams Commercial Development Manager Relationship Specialty Start Date End Date Eric Spencer DO [address] [place], [place] [address] PCP - General Family Medicine 05/03/18 documented as of this encounter
--- OUTSIDE RECORDS SUMMARY | 2023-07-28 14:03 | External Medical Summary | Summary of Care ---
Author Name Unknown Organization [facility] Address [address] [place] [address] Phone [phone] Care Team Providers Care Executive Associate Name Role Phone Jane Lockhart DO Primary Care Provider [phone] Reason for Visit * Reason Comments eRx-Medication Refill Encounter Details Date Type Department Care Team (Late st Contact Info) Description 06/30/2023 Refill Family Practice [facility] [place] [address] [place] [address] Jane Lockhart DO [facility] [place] [address] Acquired hypothyroidism Allergies Active Allergy Reactions Criticality Noted Date Comments Pradeep Inhibitors 04/27/2004 cough Bactrim Abdominal pain 09/01/2008 Abdomen pain Metformin Diarrhea 04/26/2018 Penicillins 11/10/1999 rash Sulfamethoxazole Unknown 12/10/2020 Trimethoprim Unknown 12/10/2020 documented as of this encounter (statuses as of 06/30/2023) Medications Medication Sig Dispensed Refills Start Date End Date Status Triamcinolone Acetonide 0.1 % External Cream (Aristocort) Apply topically to affected area 2 times a day. Apply to legs 80 g 1 1 Active Airborne Oral Tablet Chewable daily 0 1 Active Fluticasone Propionate 50 MCG/ACT Nasal Suspension Administer 2 Sprays into each nostril daily as needed (for nasal congestion). 0 2 Active Cholecalciferol 25 MCG (1000 UT) Oral Tablet Take 1 Tablet by mouth in the morning. 0 2 Active Turmeric 500 MG Oral Capsule Take 1 Capsule by mouth in the morning. 0 Active Metoprolol Succinate ER 50 MG Oral Tablet Extended Release 24 Hour (toPROL XL)Indications:Esse ntial hypertension with goal blood pressure less than 140/90 Take 1 Tab by mouth daily. 90 Tablet 3 3 Active Folic Acid 1 MG Oral Tablet Take 1 Tablet by mouth in the morning. 90 Tablet 3 3 Active valACYclovir HCl 1 GM Oral Tablet (Valtrex) Take 2 Tablets by mouth in the morning and 2 Tablets before bedtime. For 1 day for cold sores. 4 Tablet 11 3 Active Additional Information Patient taking differently:2,000 mg OralPRN, For 1 day for cold sores, Reported on 05/26/2023 Ketoconazole 2 % External Cream Apply topically to affected area daily. Apply to folds 60 g 5 3 Active Fish Oil 300 MG Oral Capsule Take by mouth. 0 Active Methotrexate Sodium 2.5 MG Oral TabletIndications:R heumatoid arthritis of multiple sites with negative rheumatoid factor (HCC) Take 6 Tabs by mouth once a week. Fridays 78 Tablet 1 3 Active Polyethylene Glycol 3350 17 GM Oral Packet (MiraLax) Take 1 Packet by mouth at bedtime as needed for Constipation. 14 Packet 0 3 Active Albuterol Sulfate HFA 108 (90 Base) MCG/ACT Inhalation Aerosol SolutionIndications :Bronchitis, complicated,Acute non-recurrent maxillary sinusitis Inhale 2 Puffs by mouth every 4 hours as needed for Wheezing. 18 g 0 3 Active Desonide 0.05 % External Cream Apply to rash on left face twice a day for 1-2 weeks until resolved 60 g 1 3 Active Levothyroxine Sodium 100 MCG Oral Tablet (Levoxyl)Indication s:Acquired hypothyroidism Take 1 Tablet by mouth in the morning. (at least 30 min prior to breakfast or other meds). 90 Tablet 1 4 Active Levothyroxine Sodium 100 MCG Oral Tablet (Levoxyl)Indication s:Acquired hypothyroidism Take 1 Tablet by mouth in the morning. (at least 30 min prior to breakfast or other meds). 90 Tablet 1 3 06/30/19 24 Discontinued documented as of this encounter (statuses as of 06/30/2023) Active Problems Problem Noted Date Diagnosed Date ASCUS of cervix with negative high risk HPV 03/20 Irritable bowel syndrome wit h both constipation and diarrhea 05/25/2022 History of 2019 novel coronavirus disease (COVID -19) 07/01/2021 Type 2 diabetes mellitus with diabetic dermatiti s 11/06/2018 Encounter for long-term (current) use of medicat ions 05/03/2018 Rheumatoid arthritis of [facility] sites with negative rheumatoid factor 08/17/2017 Essential hypertension with goal blood pressure less than 140/90 12/15/2015 Hypothyroidism 04/15/2015 Idiopathic urticaria 07/13/2012 Type 2 diabetes mellitus wit h hemoglobin A1c goal of less than 7.0% 04/16/2009 Overview: Per Diabetes Taxonomy. ICD-10 update of inactive term ATTN DEFIC NONHYPERACT 08/17/2005 Allergic rhinitis 07/26/2002 documented as of this encounter (statuses as of 06/30/2023) Resolved Problems Problem Noted Date Diagnosed Date [...] as of this encounter (statuses as of 06/30/2023) Immunizations Name Administration Dates Next Due COVID-19 mRNA, LNP-s, No Pre serve, 2-Dose Series ([employer]) 04/09/2021,09/05/2020,08/15/2020 Covid-19, Mrna, Lnp-s, Pf, B ivalent, [...] encounter Miscellaneous Notes * Telephone Encounter - Theresa Waite, [facility] - 06/30/2023 7:57 PM ESTSigned Prescriptions: Disp Refills Levothyroxine Sodium 100 MCG Oral Tablet (*90 Tab*1 Sig: Take 1Tablet by mouth in the morning. (at least 30 min prior to breakfast or other meds).Authorizing Provider: JANE LOCKHART User: THERESA WAITE documented in this encounter Plan of Treatment Upcoming Encounters Date Type Department Care Team (Late st Contact Info) Description 07/17/2023 10:20 AM EST Office Visit Sleep Disorders, [facility] [address] [place] [phone] Swetha Nieves MD 400 [facility] [place] [phone] 07/18/2023 5:40 PM EST Office Visit Family Practice [facility] [place] [address] [place] [address] Jane Lockhart DO [address] [place] [address] 07/26/2023 8:40 AM EST Office Visit Rheumatology [place] [address] [place] [address] Imer Quijano MD [facility] [employer] [place], [place] [address] 11/22/2023 9:00 AM EDT Nurse Only Ancillary [facility] [place] [address] [place] [address] Im, Nurse Annual Wellness [facility] [address] [place], [place] [address] 02/26/2024 9:45 AM EDT Office Visit Dermatology [facility] [place] [address] [place] [address] Harris Lanza MD [address] [facility] [place] [address] 03/18/2024 12:30 PM EDT Office Visit Dermatology, Tanna Christianson [address] [place] [address] Mary Schmidt PA-C [address] [place] [address] Scheduled Procedures Name Priority Associated Diagnoses Date/Ti [...] 06/28/2022, 05/19, 08/21/2017 Hepatitis B Completed 08/13/2015, 0 10/2013, 07/19/2013 Zoster Vaccines Completed 10/30/2019, 11, 06/03/2014 Pneumococcal Vaccine: 65+ Years Completed 06/05/2020, 11/06/2018, 12/25/2006 Influenza Vaccine (FLU shot) Completed , 04/15/2022, 05/19/2021, Additional history exists GARDASIL-HPV IMMUNIZATION SERIES Aged Out No longer eligible based on patient's age to complete this topic MENINGOCOCCAL (MENACTRA/MENVEO) Aged Out No longer eligible based on patient's age to complete this topic documented as of this encounter Medical Devices Implanted Type Area Supervisor Microfilm Duplicating Unit Device Identifier Shelf Expiration Date Model / Serial / Lot Sling Comfort Rodriguez - [id number] Implanted:Qty: 1 on 04/28/2023 by Sachin Clemens MD at OR [facility] N/A: Vagina [employer] 02/25/2024 [id number] / / [id number] documented as of this encounter Visit Diagnoses Diagnosis Acquired hypothyroidism Unspecified hypothyroidism documented in this encounter Advance Directives Latest Code Status on File Code Status Date Activated Date Inactivated Comments Full Code 04/28/2023 9:21 AM 04/28/2023 5:40 PM Thi s order reflects the patients wishes and were consensually agreed upon. Question Answer Comments Discussion of Advance Directives occurred with: Not Discussed due to patient's condition Care Teams Executive Associate Relationship Specialty Start Date End Date Jane Lockhart DO [address] [place] [address] PCP - General Family Medicine 05/03/18 documented as of this encounter
--- OUTSIDE RECORDS SUMMARY | 2023-07-28 14:03 | External Medical Summary | Summary of Care ---
Author Name Unknown Organization [facility] Address [address] [place] [address] Phone [phone] Care Team Providers Care Jig Fitter Name Role Phone Eric Spencer DO Primary Care Provider [phone] Reason for Visit * Reason Comments Follow Up Encounter Details Date Type Department Care Team (Late st Contact Info) Description 07/17/2023 10:20 AM EST Office Visit Sleep Disorders, [facility] [address] [facility] [place] [phone] Swetha Nieves MD [address] [place] [address] TAMAR (obstructive sleep apnea)* Allergies Active Allergy Reactions Criticality Noted Date Comments Pradeep Inhibitors 04/27/2004 cough Bactrim Abdominal pain 09/01/2008 Abdomen pain Metformin Diarrhea 04/26/2018 Penicillins 11/10/1999 rash Sulfamethoxazole Unknown 12/10/2020 Trimethoprim Unknown 12/10/2020 documented as of this encounter (statuses as of 07/17/2023) Medications Medication Sig Dispensed Refills Start Date [...] as of this encounter (statuses as of 07/17/2023) Active Problems Problem Noted Date Diagnosed Date TAMAR (obstructive sleep apnea) 07/17/2023 ASCUS of cervix with negative high risk HPV 03/20 Irritable bowel syndrome wit h both constipation and diarrhea 05/25/2022 History of 2019 novel coronavirus disease (COVID -19) 07/01/2021 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 ICD-10 update of inactive term ATTN DEFIC NONHYPERACT 08/17/2005 Allergic rhinitis 07/26/2002 documented as of this encounter (statuses as of 07/17/2023) Resolved Problems Problem Noted Date Diagnosed Date [...] as of this encounter (statuses as of 07/17/2023) Immunizations Name Administration Dates Next Due COVID-19 mRNA, LNP-s, No Pre serve, 2-Dose Series ([employer]) 04/09/2021,09/05/2020,08/15/2020 Covid-19, Mrna, Lnp-s, Pf, B ivalent, 30 Mcg, IM, 12 yrs and above ([employer]) 04/20/2023 H1N1 2009 Influenza, IM 07/29/2009 Hepatitis [...] Sign Reading Time Taken Comments Blood Pressure 145/76 07/17/2023 10:23 AM EST Pulse 67 07/17/2023 10:23 AM EST Temperature - - Respiratory Rate - - Oxygen Saturation - - Inhaled Oxygen Concentration - - Weight 87.1 kg (192 lb) 07/17/2023 10:23 AM EST Height 160 cm (5' 3") 07/17/2023 10:23 AM EST Body Mass Index 34.01 07/17/2023 10:23 AM EST documented in this encounter Progress Notes * Swetha Nieves MD - 07/17/2023 10:43 AM EST Name: Lashonda Hardy Sex: female : 1955 Visit date not found (in office), Visit date not found (telemedicine) Nursing Notes: Jovita Ingram LPN 07/17/23 1029 Sign at exiting of workspace Lashonda Hardy [id number] Body mass index is 34.01 kg/m. Neck Circumference: inches. 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 EPWORTH SLEEPINESS SCALE: 0 = would never doze 1 = slight chance of dozing 2 = moderate chance of dozing 3 = high chance of dozing Sitting and reading - 2 Watching TV - 2 Sitting, inactive in a public place - 0 Passenger in a car - 0 Lying down to rest - 1 Sitting and talking - 0 Sitting quietly after lunch - 1 In a car, stopped in traffic - 0 Total - 12/10 FOSQ-10 Q1. Do you have difficulty concentrating on things you do because you are sleepy or tired?Yes, a little Q2. Do you generally have difficulty remembering things because you are sleepy or tired?Yes, a little Q3. Do you have difficulty operating a motor vehicle for short distances (less than 100 miles) because you become sleepy? No Q4. Do you have difficulty operating a motor vehicle for long distances (greater than 100 miles) because you become sleepy?Yes, a little Q5. Do you have difficulty visiting your family or friends in their home because you become sleepy or tired?No Q6. Has your relationship with family, friends or work colleagues been affected because you are sleepy or tired?No Q7. Do you have difficulty watching a movie or video because you become sleepy or tired?Yes, a little Q8. Do you have difficulty being as active as you want to be in the evening because you are sleepy or tired?Yes, a little Q9. Do you have difficulty being as active as you want to be in the morning because you are sleepy or tired?Yes, a little Q10. Has your mood been affected because you are sleepy or tired? No Score 34 INTERVAL HISTORY: Patient came for f/u after split study which showed severe TAMAR. Patient is snoring and feeling tired during the day. CPAP: 12/10 SLEEP FUNCTIONAL OUTCOME MEASURES ESS: 12/10 Past Medical History: Diagnosis Date Asthma, allergic [...] performed by Melba Hernandez DO at ENDOSCOPY [facility] COLONOSCOPY, DIAGNOSTIC (RECTUM) 08/12/2019 biopsies show adenomatous polyps/recall 3 years/COLONOSCOPY FLEXIBLE PROXIMAL DIAGNOSTIC performed by Melba Hernandez DO at ENDOSCOPY [facility] COLONOSCOPY, DIAGNOSTIC (RECTUM) 09/30/2022 normal, repeat 3 yrs / COLONOSCOPY FLEXIBLE PROXIMAL DIAGNOSTIC performed by Melba Hernandez DO at ENDOSCOPY [facility] COLORECTAL CANCER SCREEN; COLON 09/10/2001 few diverticuli; repeat q 5 years DIABETIC EYE EXAM 12/08/2008 no diabetic retinopathy noted. _[facility] DIABETIC EYE EXAM 12/29/2009 no diabetic retinopathy, [facility]. DIABETIC EYE EXAM 12/11/2009 no diabetic retinopathy, [facility]. DILATION AND CURETTAGE (D&C) late term misscarriage FINE NEEDLE ASPIRATION BIOPSY, W/O IMAGING GUIDANCE; 1ST LESION 02/20/[address] [employer] PAP SCREEN 02/20/2004 negative for lesion or malignancy/satisfactory for evaluation [employer] PAP SCREEN 12/19/2008 negative for intraepithelial lesion [...] 04/17/2007 satisfactory for evaluation PAP SCREEN 01/25/2011 wnashley, -[facility] PAP SCREEN 09/13/2013 WNL- [place] REMOVAL OF WRIST LESION Right 03/03/2021 ganglion cyst removed from base of right thumb REPAIR BLADDER DEFECT N/A 04/28/2023 VAGINAL SLING PROCEDURE FOR STRESS INCONTINENCE performed by Sachin Clemens MD at OR [facility] REPAIR OF VAGINA N/A 04/28/2023 COMBINED ANTEROPOSTERIOR COLPORRHAPHY, CYSTO performed by Sachin Clemens MD at OR [facility] Sleep ROS: See HPI Allergies as of 07/17/2023 - Reviewed 07/17/2023 Allergen Reaction Noted Pradeep inhibitors 04/27/2004 Bactrim Abdominal pain 09/01/2008 Metformin Diarrhea 04/26/2018 Penicillins 11/10/1999 Sulfamethoxazole Unknown 12/10/2020 Trimethoprim Unknown 12/10/2020 Current Outpatient Medications Medication Sig Dispense Refill Triamcinolone Acetonide 0.1 % External Cream (Aristocort) Apply topically to affected area 2 times a day. Apply to legs 80 g 1 Airborne Oral Tablet Chewable daily Cholecalciferol 25 MCG (1000 UT) Oral Tablet [...] mouth in the morning. 90 Tablet 3 Fish Oil 300 MG Oral Capsule Take by mouth. Methotrexate Sodium 2.5 MG Oral Tablet Take 6 Tabs by mouth once a week. Fridays 78 Tablet 1 Levothyroxine Sodium 100 MCG Oral Tablet (Levoxyl) Take 1 Tablet by mouth in the morning. (at least30 min prior to breakfast or other meds). 90 Tablet 1 Fluticasone Propionate 50 MCG/ACT Nasal Suspension Administer 2 Sprays into each nostril daily as needed (for nasal congestion). valACYclovir HCl 1 GM Oral Tablet (Valtrex) Take 2 Tablets by mouth in the morning and 2 Tablets before bedtime. For 1 day for cold sores. (Patient taking differently: Take 2 Tablets by mouth as needed. For 1 day for cold sores) 4 Tablet 11 Ketoconazole 2 % External Cream Apply topically to affected area daily. Apply to folds 60 g 5 Polyethylene Glycol 3350 17 GM Oral Packet [...] 1-2 weeks until resolved 60 g 1 No current facility-administered medications for this visit. BP 145/76 | Pulse 67 | Ht 1.6 m (5' 3") | Wt 87.1 kg (192 lb) | LMP 08/26/2003 | BMI 34.01 kg/m |BSA 1.97 m GENERAL: alert, healthy, no distress, well nourished, and well developed Exam: Const: No signs of acute distress present HEENT: Normocephalic, Nasal congestion absent, nasal valve incompetence absent, Posterior airspace:Iqbal tongue position 3, Retrognathia absent, Overbite absent, High arched palate present, Tongue scalloping/ridging absent. Throat: Uvula. Neck: Supple and symmetric. Chest: Resp: CTA and negative wheezes/rhonchi/rales IHeart: Rhythm is regular. No heart murmur appreciated. Extremities: No edema of the lower limbs bilaterally. Musculoskeletal: Walks with a normal gait. Skin: Skin is warm and dry. Neuro: Coordination normal. No involuntary movement. Psych: Patient's attitude is cooperative. Mood is normal. Affect is normal. Impression and Plan Patient is a 68 yo lady with history of DM, HTN TAMAR Auto-PAP 5-20 cmH2O Discussed the diagnosis and consequences including but not limited to i.e increased risk for hypertension, arrhthymias, stroke, congestive heart failure and . Treatment options discussed in detail, CPAP therapy explained. All questions were answered. Consider weight loss. Blood pressure was 145/76 today. JNC 7 lists TAMAR as a causal risk factor for hypertension. Effective treatment of hypertension decreases cardiovascular risk/injury Recommended patient keep consistent bed/wake times and to get 7-8 hours of sleep. Reviewed good sleep hygiene. Advised patient on the dangers of drowsy driving and not to drive when drowsy. F/U in 2 months Swetha A Nieves, MD documented in this encounter Nursing Notes * Jovita Ingram LPN - 07/17/2023 10:25 AM EST [place] [id number] Body mass index is 34.01 kg/m. Neck Circumference: inches. 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 EPWORTH SLEEPINESS SCALE: 0 = would never doze 1 = slight chance of dozing 2 = moderate chance of dozing 3 = high chance of dozing Sitting and reading - 2 Watching TV - 2 Sitting, inactive in a public place - 0 Passenger in a car - 0 Lying down to rest - 1 Sitting and talking - 0 Sitting quietly after lunch - 1 In a car, stopped in traffic - 0 Total - 12/10 FOSQ-10 Q1. Do you have difficulty concentrating on things you do because you are sleepy or tired?Yes, a little Q2. Do you generally have difficulty remembering things because you are sleepy or tired?Yes, a little Q3. Do you have difficulty operating a motor vehicle for short distances (less than 100 miles) because you become sleepy? No Q4. Do you have difficulty operating a motor vehicle for long distances (greater than 100 miles) because you become sleepy?Yes, a little Q5. Do you have difficulty visiting your family or friends in their home because you become sleepy or tired?No Q6. Has your relationship with family, friends or work colleagues been affected because you are sleepy or tired?No Q7. Do you have difficulty watching a movie or video because you become sleepy or tired?Yes, a little Q8. Do you have difficulty being as active as you want to be in the evening because you are sleepy or tired?Yes, a little Q9. Do you have difficulty being as active as you want to be in the morning because you are sleepy or tired?Yes, a little Q10. Has your mood been affected because you are sleepy or tired? No Score 34 documented in this encounter Plan of Treatment Upcoming Encounters Date Type Department Care Team (Late st Contact Info) Description 07/26/2023 8:40 AM EST Office Visit Rheumatology [place] [phone] [facility] [place] [address] Imer Quijano MD [address] [facility] [place] [address] 08/29/2023 6:20 PM EDT Office Visit Family Practice [facility] [place] 200 [facility] [place] [address] Eric Spencer, 200 [facility] [place] [address] 11/22/2023 9:00 AM EDT Nurse Only Ancillary [facility] 200 [facility] [place] [address] Im, Nurse Annual Wellness [address] [place] [address] 02/26/2024 9:45 AM EDT Office Visit Dermatology [facility] 200 [facility] [place] [address] Harris Lanza MD 200 [facility] [place] [address] 03/18/2024 12:30 PM EDT Office Visit Dermatology, Tanna Christianson [address] [place] [phone] Mary Schmidt PA-C [address] [place] [address] Scheduled Procedures Name Priority Associated Diagnoses Date/Ti [...] this encounter Medical Devices Implanted Type Area Senior Energy Trader Device Identifier Shelf Expiration Date Model / Serial / Lot Ralph Rodriguez - [id number] Implanted:Qty: 1 on 04/28/2023 by Sachin Clemens MD at OR [facility] N/A: Vagina [employer] 02/25/2024 [id number] / [id number] documented as of this encounter Visit Diagnoses Diagnosis TAMAR (obstructive sleep apnea)- Primary Obstructive sleep apnea (adult) (pediatric) documented in this encounter Advance Directives Latest Code Status on File Code Status Date Activated Date Inactivated Comments Full Code 04/28/2023 9:21 AM 04/28/2023 5:40 PM Thi s order reflects the patients wishes and were consensually agreed upon. Question Answer Comments Discussion of Advance Directives occurred with: Not Discussed due to patient's condition Care Teams Jig Fitter Relationship Specialty Start Date End Date Eric Spencer DO [address] [place] [address] PCP - General Family Medicine 05/03/18 documented as of this encounter
--- OUTSIDE RECORDS SUMMARY | 2023-07-28 14:03 | External Medical Summary | Summary of Care ---
Author Name Unknown Organization [facility] Address [address] [place] [address] Phone [phone] Care Team Providers Care Creative Art Therapist Name Role Phone Eric Spencer DO Primary Care Provider [phone] Reason for Visit * Reason Onset Date Comments Health Maintenance 07/07/2023 Encounter Details Date Type Department Care Team (Late st Contact Info) Description [facility] [address] [facility] [place] [address] Eric Spencer DO [address] [facility] [place] [address] Health Maintenance Allergies Active Allergy Reactions Criticality Noted Date Comments Pradeep Inhibitors 04/27/2004 cough Bactrim Abdominal pain 09/01/2008 Abdomen pain Metformin Diarrhea 04/26/2018 Penicillins 11/10/1999 rash Sulfamethoxazole Unknown 12/10/2020 Trimethoprim Unknown 12/10/2020 documented as of this encounter (statuses as of 07/07/2023) Medications Medication Sig Dispensed Refills Start Date [...] as of this encounter (statuses as of 07/07/2023) Active Problems Problem Noted Date Diagnosed Date ASCUS of cervix with negative high risk HPV 03/20 Irritable bowel syndrome wit h both constipation and diarrhea 05/25/2022 History of 2019 novel coronavirus disease (COVID -19) 07/01/2021 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 ICD-10 update of inactive term ATTN DEFIC NONHYPERACT 08/17/2005 Allergic rhinitis 07/26/2002 documented as of this encounter (statuses as of 07/07/2023) Resolved Problems Problem Noted Date Diagnosed Date [...] as of this encounter (statuses as of 07/07/2023) Immunizations Name Administration Dates Next Due COVID-19 mRNA, LNP-s, No Pre serve, 2-Dose Series ([employer]) 04/09/2021,09/05/2020,08/15/2020 Covid-19, Mrna, Lnp-s, Pf, B ivalent, [...] encounter Miscellaneous Notes * Telephone Encounter - Annamarie Gr BOX MAKER - 07/07/2023 8:13 AM EST Care Gaps Comprehensive Care Outreach Last Office/Telemedicine Visit: 04/10/2023 (in office), Visit date not found (telemedicine) Next Office Visit: 07/18/2023 Hemoglobin AIC Results: Lab Results Component Value Date/Time HEMOGLOBIN A1C - [facility] 6.3 (H) 10/31/2022 09:12 AM HEMOGLOBIN A1C - [facility] 6.6 (H) 05/25/2022 09:29 AM HEMOGLOBIN A1C - [facility] 6.7 (H) 01/24/2022 03:43 PM HEMOGLOBIN A1C - [facility] 6.6 (H) 01/31/2017 08:42 AM HEMOGLOBIN A1C - [facility] 5.7 02/25/2016 09:30 AM HEMOGLOBIN A1C - [facility] 6.4 08/13/2015 09:56 AM Reviewed Health Maintenance below: Health Maintenance Topic Date Due HbA1c 05/03/2023 COVID-19 Vaccine ( season) 2023 Mammogram 08/12/2023 Diabetic Eye Exam 08/12/2023 Lab already ordered Mamm [facility] Care Gap Outreach Action Taken: [employer] message sent documented in this encounter Plan of Treatment Upcoming Encounters Date Type Department Care Team (Late st Contact Info) Description 07/17/2023 10:20 AM EST Office Visit Sleep Disorders, [facility] [address] [place] [address] Swetha Nieves MD [address] [facility] [place] [address] 07/18/2023 5:40 PM EST Office Visit Family Practice [facility] [place] [address] [place] [address] [address] Eric Spencer, DO [address] [facility] [place] [address] 07/26/2023 8:40 AM EST Office Visit Rheumatology [place] [id number] [facility] [place] [address] Imer Quijano MD [facility] [place] [address] 11/22/2023 9:00 AM EDT Nurse Only Ancillary [facility] [place] [address] [place] [address] Im, Nurse Annual Wellness [facility] [address] [place] [address] 02/26/2024 9:45 AM EDT Office Visit Dermatology [facility] [place] [address] [place] [address] Harris Lanza MD [address] [place] [address] 03/18/2024 12:30 PM EDT Office Visit Dermatology, [facility] [address] [place] [phone] Mary Schmidt PA-C [address] [place] [phone] Scheduled Procedures Name Priority Associated Diagnoses Date/Ti me COLONOSCOPY FLEXIBLE PROXIMAL DIAGNOSTIC Recall History of colon polyps Health Maintenance Due Date Last Done Comments HbA1c 05/03/2023 10/31/2022, 12/2021, 01/24/2022, Additional history exists COVID-19 Vaccine ( season) 2023 04/20/2023, 04/09/2021, 09/05/2020, Additional history exists Diabetic Eye Exam 08/12/2023 08/12/2022, , 03/05/2021, Additional history exists Mammogram 08/12/2023 08/12/2022, 07/21, 08/07/2020, Additional history exists Depression Screening 11/17/2023 11/16/2022 Diabetic Foot Exam 11/17/2023 11/16/2022, 0 11/16/2022, 07/01/2021, Additional history exists TSH 04/20/2024 04/20/2023, 0801/2022, 12/04/2020, Additional history exists Albumin/Creatinine Ratio 04/24/2024 [...] this encounter Medical Devices Implanted Type Area Seed Analysis Laboratory Assistant Device Identifier Shelf Expiration Date Model / Serial / Lot Sling Comfort Rodriguez - [id number] Implanted:Qty: 1 on 04/28/2023 by Sachin Clemens MD at OR [facility] N/A: Vagina [employer] 02/25/2024 [id number] / / [id number] documented as of this encounter Advance Directives Latest Code Status on File Code Status Date Activated Date Inactivated Comments Full Code 04/28/2023 9:21 AM 04/28/2023 5:40 PM Thi s order reflects the patients wishes and were consensually agreed upon. Question Answer Comments Discussion of Advance Directives occurred with: Not Discussed due to patient's condition Care Teams Creative Art Therapist Relationship Specialty Start Date End Date Eric Spencer DO [address] [place] [address] PCP - General Family Medicine 05/03/18 documented as of this encounter
--- OUTSIDE RECORDS SUMMARY | 2023-07-28 14:04 | External Medical Summary | Summary of Care ---
Author Name Unknown Organization [facility] Address [address] [facility] [place] [address] Phone [phone] Care Team Providers Care Flag Decorator Name Role Phone Eric Spencer DO Primary Care Provider [phone] Encounter Details Date Type Department Care Team (Late st Contact Info) Description 06/10/2023 Orders Only Family Practice [facility] [place] [address] [facility] [place] [address] Eric Spencer DO [address] [facility] [place] [address] Allergies Active Allergy Reactions Criticality Noted Date Comments Pradeep Inhibitors 04/27/2004 cough Bactrim Abdominal pain 09/01/2008 Abdomen pain Metformin Diarrhea 04/26/2018 Penicillins 11/10/1999 rash Sulfamethoxazole Unknown 12/10/2020 Trimethoprim Unknown 12/10/2020 documented as of this encounter (statuses as of 06/10/2023) Medications Medication Sig Dispensed Refills Start Date [...] as of this encounter (statuses as of 06/10/2023) Active Problems Problem Noted Date Diagnosed Date ASCUS of cervix with negative high risk HPV 03/20 Irritable bowel syndrome wit h both constipation and diarrhea 05/25/2022 History of 2019 novel coronavirus disease (COVID -19) 07/01/2021 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 ICD-10 update of inactive term ATTN DEFIC NONHYPERACT 08/17/2005 Allergic rhinitis 07/26/2002 documented as of this encounter (statuses as of 06/10/2023) Resolved Problems Problem Noted Date Diagnosed Date [...] as of this encounter (statuses as of 06/10/2023) Immunizations Name Administration Dates Next Due COVID-19 mRNA, LNP-s, No Pre serve, 2-Dose Series ([employer]) 04/09/2021,09/05/2020,08/15/2020 Covid-19, Mrna, Lnp-s, Pf, B ivalent, [...] Care Team (Late st Contact Info) Description 06/15/2023 10:00 AM EST Appointment Radiology, [facility] [address] [place] [address] 06/27/2023 12:50 PM EST Office Visit Dermatology, Tanna Christianson [address] [place] [address] Agnieszka Cruz PA-C [address] [place] [address] 07/12/2023 1:00 PM EST Office Visit Sleep Disorders, [facility] [address] [place] [address] Swetha Nieves MD [address] [place] [address] 07/18/2023 5:40 PM EST Office Visit [address] [place], [place] [address] Eric Spencer, [address] [facility] [address] [place], [place] [address] 07/26/2023 8:40 AM EST Office Visit Rheumatology [address] [place] [address] Imer Quijano MD [address] [place] [address] [employer] [place] [address] 11/22/2023 9:00 AM EDT Nurse Only Ancillary [facility] [address] [facility] [place] [address] Im, Nurse Annual Wellness [facility] [address] [facility] [place] [address] 02/26/2024 9:45 AM EDT Office Visit Dermatology [facility] [address] [facility] [place] [address] Harris Lanza MD [address] [facility] [place] [address] Scheduled Procedures Name Priority Associated Diagnoses Date/Ti me COLONOSCOPY FLEXIBLE PROXIMAL DIAGNOSTIC Recall History of colon polyps Health Maintenance Due Date Last Done Comments Albumin/Creatinine Ratio 01/24/2023 023, 01/24/2022, 12/04/2020, Additional history exists HbA1c 05/03/2023 10/31/2022, 12/0 12/2021, 01/24/2022, Additional history exists COVID-19 Vaccine ( season) 2023 04/20/2023, 04/09/2021, 09/05/2020, Additional history exists Diabetic Eye Exam 08/12/2023 08/12/2022, , 03/05/2021, Additional history exists Mammogram 08/12/2023 08/12/2022, 07/21, 08/07/2020, Additional history exists Depression Screening 11/17/2023 11/16/2022 Diabetic Foot Exam 11/17/2023 11/16/2022, 0 11/16/2022, 07/01/2021, Additional history exists GFR 04/20/2024 04/24/2023, 07/2022, 04/10/2023, Additional history exists TSH 04/20/2024 04/20/2023, 0801/2022, 12/04/2020, Additional history exists COLONOSCOPY-EVERY 3 YRS AGES [...] this encounter Medical Devices Implanted Type Area Police Patrol Lieutenant Device Identifier Shelf Expiration Date Model / Serial / Lot Sling Comfort [employer] - [id number] Implanted:Qty: 1 on 04/28/2023 by Sachin Clemens MD at OR [facility] N/A: Vagina [employer] 02/25/2024 [id number] / / [id number] documented as of this encounter Procedures Procedure Name Priority Date/Time Associated Diagnosis Comments CHEMISTRY-OUTSIDE Routine 04/24/2023 documented in this encounter Results * CHEMISTRY-OUTSIDE (04/24/2023) Not all results display below - see scan for full detail OUTSIDE LAB (SEE SCANNED REPORT) Comment:SCAN INCLUDES - CREA TININE, EGFR, UR ALB/CREAT RATIO CREATININE-OUTSID E LAB 0.7 0.5 - 0.9 MG/DL OUTSIDE LAB (SEE SCANNED REPORT) EGFR-OUTSIDE LAB 93.4 >60.0 ML/MIN/1.7 M2 OUTSIDE LAB (SEE SCANNED REPORT) POTASSIUM-OUTSIDE LAB OUTSIDE LAB (SEE SCANNED REPORT) GLUCOSE-OUTSIDE LAB OUTSIDE LAB (SEE SCANNED REPORT) HOURS FASTING OUTSID E LAB (SEE SCANNED REPORT) TRIGLYCERIDES-OUT SIDE LAB OUTSIDE LAB (SEE SCANNED REPORT) CHOLESTEROL-OUTSI DE LAB OUTSIDE LAB (SEE SCANNED REPORT) HDL-OUTSIDE LAB OUTS BRIAN LAB (SEE SCANNED REPORT) CHOL/HDL RATIO-OUTSIDE LAB OUTSIDE LA B (SEE SCANNED REPORT) LDL (CALCULATED)-OUTS BRIAN LAB OUTSIDE LAB (SEE SCANNED REPORT) LDL (DIRECT MEASURE)-OUTSIDE LAB OUTSIDE LAB (SEE SCANNED REPORT) HEMOGLOBIN, [id number] LAB OUTSIDE LAB (SEE SCANNED REPORT) PHOSPHORUS-OUTSID E LAB OUTSIDE LAB (SEE SCANNED REPORT) PTH-OUTSIDE LAB OUTS BRIAN LAB (SEE SCANNED REPORT) MICROALBUMIN RATIO-OUTSIDE LAB 9.1 <30.0 MG/G OUTSIDE LA B (SEE SCANNED REPORT) PROTEIN, UA-OUTSIDE LAB OUTSIDE LAB (SEE SCANNED REPORT) HEMOGLOBIN-OUTSID E LAB OUTSIDE LAB (SEE SCANNED REPORT) 04/24/2023 History Per Patient LABORATORY OUTSIDE LAB (SEE SCANNED REPORT) documented in this encounter Advance Directives Latest Code Status on File Code Status Date Activated Date Inactivated Comments Full Code 04/28/2023 9:21 AM 04/28/2023 5:40 PM Thi s order reflects the patients wishes and were consensually agreed upon. Question Answer Comments Discussion of Advance Directives occurred with: Not Discussed due to patient's condition Care Teams Flag Decorator Relationship Specialty Start Date End Date Eric Spencer [place] [address] [place] [address] PCP - General Family Medicine 05/03/18 documented as of this encounter
--- OUTSIDE RECORDS SUMMARY | 2023-07-28 14:04 | External Medical Summary | Summary of Care ---
Author Name Unknown Organization [facility] Address [address] [place] [address] Phone [phone] Care Team Providers Care Pharmacovigilance Safety Expert Name Role Phone TjStephaneronald Maher DO Primary Care Provider [phone] Reason for Visit * Reason Comments Acute The pt stated she monte s had a non productive cough, chest congestion, wheezing, and she also stated she lost her ability to taste. The pt stated that this has been going for 6 days. The pt stated she took a home COVID test and it was negative. Encounter Details Date Type Department Care Team (Late st Contact Info) Description 05/26/2023 10:00 AM EST Office Visit General Internal Medicine [facility] [address] [place] [address] Mary Nava MD [address] [place] [address] Bronchitis, complicated*; Acute non-recurrent maxillary sinusitis; Rheumatoid arthritis of multiple sites with negative rheumatoid factor ([facility]); Type 2 diabetes mellitus with hemoglobin A1c goal of less than 7.0% ([facility]) Allergies Active Allergy Reactions Criticality Noted Date Comments Pradeep Inhibitors 04/27/2004 cough Bactrim Abdominal pain 09/01/2008 Abdomen pain Metformin Diarrhea 04/26/2018 Penicillins 11/10/1999 rash Sulfamethoxazole Unknown 12/10/2020 Trimethoprim Unknown 12/10/2020 documented as of this encounter (statuses as of 05/26/2023) Medications Medication Sig Dispensed Refills Start Date [...] to folds 60 g 5 3 Active Levothyroxine Sodium 100 MCG Oral Tablet (Levoxyl)Indication s:Acquired hypothyroidism Take 1 Tablet by mouth in the morning. (at least 30 min prior to breakfast or other meds). 90 Tablet 1 3 Active Fish Oil 300 MG Oral [...] for Wheezing. 18 g 0 3 Active predniSONE 20 MG Oral Tablet (Deltasone)Indicati ons:Bronchitis, complicated,Acute non-recurrent maxillary sinusitis Two daily for 5 days then 1 daily for 5 days 15 Tablet 0 3 Active Doxycycline Hyclate 100 MG Oral CapsuleIndications: Bronchitis, complicated,Acute non-recurrent maxillary sinusitis Take 1 Capsule by mouth in the morning and 1 Capsule before bedtime. Do all this for 7 days. Take for 7 days. 14 Capsule 0 3 06/02/20 23 Active Docusate Sodium 100 MG Oral Capsule (Colace) Take 1 Capsule by mouth in the morning and 1 Capsule before bedtime. 10 Capsule 0 3 05/26/20 23 Discontinued documented as of this encounter (statuses as of 05/26/2023) Active Problems Problem Noted Date Diagnosed Date ASCUS of cervix with negative high risk HPV 03/20 Irritable bowel syndrome wit h both constipation and diarrhea 05/25/2022 History of 2019 novel coronavirus disease (COVID -19) 07/01/2021 Type 2 diabetes mellitus with diabetic dermatiti s 11/06/2018 Encounter for long-term (current) use of medicat ions 05/03/2018 Rheumatoid arthritis of [facility] sites with negative rheumatoid factor 08/17/2017 Essential hypertension with goal blood pressure less than 140/90 12/15/2015 Hypothyroidism 04/15/2015 Idiopathic urticaria 07/13/2012 Type 2 diabetes mellitus wit h hemoglobin A1c goal of less than 7.0% 04/16/2009 Overview: Per Diabetes Taxonomy. ICD-10 update of inactive term ATTN DEFIC NONHYPERACT 08/17/2005 Allergic rhinitis 07/26/2002 documented as of this encounter (statuses as of 05/26/2023) Resolved Problems Problem Noted Date Diagnosed Date [...] as of this encounter (statuses as of 05/26/2023) Immunizations Name Administration Dates Next Due COVID-19 mRNA, LNP-s, No Pre serve, 2-Dose Series ([employer]) 04/09/2021,09/05/2020,08/15/2020 Covid-19, Mrna, Lnp-s, Pf, B ivalent, 30 Mcg, IM, 12 yrs and above ([employer]) 04/20/2023 H1N1 2009 Influenza, IM 07/29/2009 Hepatitis B, 20+ yrs 08/13/2015,08/21/2013,07/19 MMR - Measles/Mumps/Rubella Vaccine 11/06/2018 Pneumococcal Conjugate Vacc, 13 Valent (Prevnar) 11/06/2018 Pneumococcal Polysaccharide PPV23 (Pneumovax) 06/05/2020,12/25/2006 RSV Vac., Bivalent, Perfusio n F, Pf,0.5 Ml (Abrysvo) 04/03/2023 SEASONAL INFLUENZA, PF, 6 M & Above, IM , (FLULAVAL or FLUZONE) 03/11/2020,04/26/2018,03/20/2017 Seasonal Influenza, Quadriva lent Hd (Fluzone [...] Sign Reading Time Taken Comments Blood Pressure 152/80 05/26/2023 10:20 AM EST Pulse 79 05/26/2023 10:20 AM EST Temperature 36.8 C (98.3 F) 05/26/2023 10:[address] Respiratory Rate - - Oxygen Saturation 95% 05/26/2023 10:20 AM EST Inhaled Oxygen Concentration - - Weight 87.6 kg (193 lb 1.6 oz) 05/26/2023 10:20 AM EST Height - - Body Mass Index 34.21 04/28/2023 6:55 AM EST documented in this encounter Progress Notes * Mary Nava MD - 05/26/2023 10:30 AM EST SUBJECTIVE: Lashonda Hardy is a 68 year old female. Chief Complaint Patient presents with Acute The pt stated she has had a non productive cough, chest congestion, wheezing, and she also stated she lost her ability to taste. The pt stated that this has been going for 6 days. The pt stated she took a home COVID test and it was negative. HPI: Patient presents today with 5-6 day onset of symptoms, started out with a cough, sneezing, runny nose, postnasal drainage, had chills and maybe a low- grade fever for 1 day. She had COVID booster, flu vaccine as well as RSV vaccine. Has been taking Mucinex cold and flu, symptoms persist. When she lies down she hears a wheeze. No dyspnea on exertion, loss of taste, mild sinus pressure, no earache. She took methotrexate this morning. Immunization History Administered Date(s) Administered COVID-19 mRNA, LNP-s, No Preserve, 2-Dose Series ([employer]) 08/15/2020, 09/05/2020, 04/09/2021 Covid-19, Mrna, Lnp-s, Pf, Bivalent, 30 Mcg, IM, 12 yrs and above ([employer]) 04/20/2023 H1N1 2009 Influenza, IM 07/29/2009 Hepatitis B, 20+ yrs 07/19/2013, 08/21/2013, 08/13/2015 MMR - Measles/Mumps/Rubella Vaccine 11/06/2018 Methylprednisolone 07/28/2008 Pneumococcal Conjugate Vacc, 13 Valent (Prevnar) 11/06/2018 Pneumococcal Polysaccharide PPV23 (Pneumovax) 12/25/2006, 06/05/2020 RSV Vac., Bivalent, Perfusion F, Pf,0.5 Ml (Abrysvo) 04/03/2023 SEASONAL INFLUENZA, PF, 6 M & Above, IM , (FLULAVAL or FLUZONE) 03/20/2017, 04/26/2018, 03/11/2020 Seasonal Influenza, Quadrivalent Hd (Fluzone Hd) 04/10/2023 Seasonal Influenza, Quadrivalent Hd, 65+ Yrs 05/19/2021 Seasonal Influenza, Quadrivalent, No Preserve, IM 04/15/2015, 02/25/2016, 04/15/2022 Seasonal Influenza, Split, IIV3, With Preserve, Inj 04/16/1999, 04/19/2006, 03/21/2007, 04/29/2008,03/24/2009, 03/10/2010, 04/29/2011, 03/23/2012, 04/25/2013, 04/03/2014 Seasonal Influenza, Trivalent, Adjuvanted, 65+ yrs 03/20/2019, 03/10/2020 TD, Preservative Free 11/06/2018 TDAP (age 11 and older)(Adacel) 07/22/2008 Varicella Zoster Vaccine (Adult) 06/03/2014 Zoster Vaccine Recombinant (Shingrix) 05/18/2019, 10/30/2019 Patient Active Problem List Diagnosis Code Allergic rhinitis J30.9 ATTN DEFIC NONHYPERACT F98.8 Type 2 diabetes mellitus with hemoglobin A1c goal of less than 7.0% ([facility]) E11.9 Idiopathic urticaria L50.1 Hypothyroidism E03.9 Essential hypertension with goal blood pressure less than 140/90 I10 Rheumatoid arthritis of multiple sites with negative rheumatoid factor (HCC) M06.09 Encounter for long-term (current) use of medications Z79.899 Type 2 diabetes mellitus with diabetic dermatitis (HCC) E11.620 History of 2019 novel coronavirus disease (COVID-19) Z86.16 Irritable bowel syndrome with both constipation and diarrhea K58.2 ASCUS of cervix with negative high risk HPV R87.610 Current Outpatient Medications Medication Sig Dispense Refill [...] as needed for Constipation. 14 Packet 0 No current facility-administered medications for this visit. Review of patient's allergies indicates: Allergen Reactions Pradeep Inhibitors cough Bactrim Abdominal pain Abdomen pain Metformin Diarrhea Penicillins rash Sulfamethoxazole Unknown Trimethoprim Unknown OBJECTIVE: BP 152/80 | Pulse 79 | Temp 36.8 C (98.3 F) | Wt 87.6 kg (193 lb 1.6 oz) | LMP 08/26/2003 | SpO2 95% | BMI 34.21 kg/m | BSA 1.97 m PHYSICAL EXAM: General: alert, healthy, no distress, well nourished and well developed Head: Normocephalic,atraumatic. Eye Exam: Conjunctiva are pink and non-injected, sclera clear Ears: External ears normal, Canal clear, TM Normal Nose: no purulent discharge, clear rhinorrhea, + musosal edema, + mucosal erythema, +max>fr sinus tenderness Oropharynx: mild-moderate erythema sites PND, no cobblestoning pharynx. Neck: supple, thyroid normal size, non-tender, without nodularity Lymph: No palpable lymphadenopathy Heart: regular rhythm and rate , no murmurs. Lungs: lungs clear to auscultation No rhonchi with forced expiration Has congested cough ASSESSMENT/PLAN: Bronchitis, complicated (Primary) - Albuterol Sulfate HFA 108 (90 Base) MCG/ACT Inhalation Aerosol Solution; Inhale 2 Puffs by mouth every 4 hours as needed for Wheezing. - predniSONE 20 MG Oral Tablet (Deltasone); Two daily for 5 days then 1 daily for 5 days - Doxycycline Hyclate 100 MG Oral Capsule; Take 1 Capsule by mouth in the morning and 1 Capsule before bedtime. Do all this for 7 days. Take for 7 days. Acute non-recurrent maxillary sinusitis - Albuterol Sulfate HFA 108 (90 Base) MCG/ACT Inhalation Aerosol Solution; Inhale 2 Puffs by mouth every 4 hours as needed for Wheezing. - predniSONE 20 MG Oral Tablet (Deltasone); Two daily for 5 days then 1 daily for 5 days - Doxycycline Hyclate 100 MG Oral Capsule; Take 1 Capsule by mouth in the morning and 1 Capsule before bedtime. Do all this for 7 days. Take for 7 days. Inc intake fluids. Advised to use otc nasal saline spray/drops q1-2 hrs while awake as needed. Advised warm saline gargles qid prn for relief. add flonase 2 sprays with nasal saline spray before and every 1-2 hrs as needed for nasal congestion, use till better; Strict low carb diet while on prednisone Rheumatoid arthritis of multiple sites with negative rheumatoid factor (HCC) -she already took methotrexate today. Advised that whenever she is ill to hold it for 1 week Type 2 diabetes mellitus with hemoglobin A1c goal of less than 7.0% ([facility]) Hemoglobin AIC Results: Lab Results Component Value Date/Time HEMOGLOBIN A1C - [facility] 6.3 (H) 10/31/2022 09:12 AM HEMOGLOBIN A1C - [facility] 6.6 (H) 05/25/2022 09:29 AM HEMOGLOBIN A1C - [facility] 6.7 (H) 01/24/2022 03:43 PM HEMOGLOBIN A1C - [facility] 6.6 (H) 01/31/2017 08:42 AM HEMOGLOBIN A1C - [facility] 5.7 02/25/2016 09:30 AM HEMOGLOBIN A1C - [facility] 6.4 08/13/2015 09:56 AM Follow Up: Return if symptoms worsen or fail to improve. (This note was completed using the dictation program Fluency Direct. As such, there may be misspellings, word substitutions, or other variations that should not change the essence of the clinical content of this encounter note. If there is need for further clarification, please direct questions to the provider listed above.) Patient and / caregiver verbalize understanding of above instructions and agrees with plan of care. Mary Nava MD 05/26/2023 documented in this encounter Nursing Notes * Ta Pavon LPN - 05/26/2023 10:20 AM EST Chief Complaint Patient presents with Acute The pt stated she has had a non productive cough, chest congestion, wheezing, and she also stated she lost her ability to taste. The pt stated that this has been going for 6 days. The pt stated she took a home COVID test and it was negative. documented in this encounter Plan of Treatment Upcoming Encounters Date Type Department Care Team (Late st Contact Info) Description 06/05/2023 4:10 PM EST Office Visit Urogynecology [facility] [address] [place] [address] Sachin Clemens MD [address] [place] [address] 06/06/2023 3:00 PM EST Office Visit Sleep Disorders Ctr [facility] [address] [phone] Genesis Fraga DO [address] [place] [address] 06/13/2023 10:00 AM EST Appointment Radiology, [address] [place] [address] 06/27/2023 12:50 PM EST Office [place], [place] [facility] [address] [place] [address] Agnieszka Cruz PA-C [address] [place] [address] 07/18/2023 5:40 PM EST Office Visit Family Practice [facility] [place] [address] [place] [address] Eric Spencer DO [address] [facility] [place] [address] 07/26/2023 8:40 AM EST Office Visit Rheumatology [place] [address] [address] [place] [address] Imer Quijano MD [facility] [place] [address] 11/22/2023 9:00 AM EDT Nurse Only Ancillary [facility] [place] [address] [place] [address] Im, Nurse Annual Wellness [facility] [address] [place] [address] 02/26/2024 9:45 AM EDT Office [facility] [place] [address] [place] [address] Harris Lanza MD [address] [place] [address] Scheduled Procedures Name Priority Associated Diagnoses Date/Ti me COLONOSCOPY FLEXIBLE PROXIMAL DIAGNOSTIC Recall History of colon polyps Health Maintenance Due Date Last Done Comments Albumin/Creatinine Ratio 01/24/2023 082 022, 12/04/2020, 06/05/2020, Additional history exists HbA1c 05/03/2023 10/31/2022, 12/0 12/2021, 01/24/2022, Additional history exists COVID-19 Vaccine ( - season) 2023 04/20/2023, 04/09/2021, 09/05/2020, Additional history exists Diabetic Eye Exam 08/12/2023 08/12/2022, , 03/05/2021, Additional history exists Mammogram 08/12/2023 08/12/2022, 07/21, 08/07/2020, Additional history exists Depression Screening 11/17/2023 11/16/2022 Diabetic Foot Exam 11/17/2023 11/16/2022, 0 11/16/2022, 07/01/2021, Additional history exists GFR 04/20/2024 04/20/2023, 03/20, 10/31/2022, Additional history exists TSH 04/20/2024 04/20/2023, 08/0 01/2022, 12/04/2020, Additional history exists COLONOSCOPY-EVERY 3 YRS AGES 18-100 09/30/2025 09/30/2022, 09/30/2022, 08/12/2019, Additional history exists Lipid Panel 05/25/2027 05/25/2022, 11/17, 06/09/2020, Additional history exists DTaP,Tdap,and Td Vaccines (3 - Td or Tdap) 11/06/2028 11/06/2018, 07/22/2008 DXA Scan 06/28/2029 06/28/2022, 05/19, 08/21/2017 Hepatitis B Completed 08/13/2015, 030 10/2013, 07/19/2013 Zoster Vaccines Completed 10/30/2019, 04/21, [...] this encounter Medical Devices Implanted Type Area Cover Machine Operator Device Identifier Shelf Expiration Date Model / Serial / Lot Ralph Rodriguez - [id number] Implanted:Qty: 1 on 04/28/2023 by Sachin Clemens MD at OR [facility] N/A: Vagina [employer] 02/25/2024 [id number] / / [id number] documented as of this encounter Visit Diagnoses Diagnosis Bronchitis, complicated- Primary Bronchitis, not specified as acute or chronic Acute non-recurrent maxillary sinusitis Rheumatoid arthritis of multiple sites with negative rheumatoid factor (HCC) Type 2 diabetes mellitus with hemoglobin A1c goal of less than 7.0% ([facility]) documented in this encounter Advance Directives Latest Code Status on File Code Status Date Activated Date Inactivated Comments Full Code 04/28/2023 9:21 AM 04/28/2023 5:40 PM Thi s order reflects the patients wishes and were consensually agreed upon. Question Answer Comments Discussion of Advance Directives occurred with: Not Discussed due to patient's condition Care Teams Pharmacovigilance Safety Expert Relationship Specialty Start Date End Date Eric Spencer DO [address] [place] [address] PCP - General Family Medicine 05/03/18 documented as of this encounter"
--- OUTSIDE RECORDS SUMMARY | 2023-07-28 14:04 | External Medical Summary | Summary of Care ---
Author Name Unknown Organization [facility] Address [address] [place] [address] Phone [phone] Care Team Providers Care Outside Plant Technician Name Role Phone Eric Spencer DO Primary Care Provider [phone] Reason for Visit * Reason Comments Post-Op Encounter Details Date Type Department Care Team (Late st Contact Info) Description 06/05/2023 4:10 PM EST Office Visit Urogynecology [facility] [address] [place] [address] Sachin Clemens MD [address] [place] [address] Cystocele, midline*; Rectocele; Stress incontinence Allergies Active Allergy Reactions Criticality Noted Date Comments Pradeep Inhibitors 04/27/2004 cough Bactrim Abdominal pain 09/01/2008 Abdomen pain Metformin Diarrhea 04/26/2018 Penicillins 11/10/1999 rash Sulfamethoxazole Unknown 12/10/2020 Trimethoprim Unknown 12/10/2020 documented as of this encounter (statuses as of 06/05/2023) Medications Medication Sig Dispensed Refills Start Date [...] for Wheezing. 18 g 0 05/26/2023 Active Nitrofurantoin Monohyd Macro 100 MG Oral Capsule (Macrobid) Take 1 Capsule by mouth in the morning and 1 Capsule before bedtime. Do all this for 7 days. With food. Until gone.. 14 Capsule 0 05/09/2023 3 Discontinu ed(End of Procedure) predniSONE 20 MG Oral Tablet (Deltasone)Indicati ons:Bronchitis, complicated,Acute non-recurrent maxillary sinusitis Two daily for 5 days then 1 daily for 5 days 15 Tablet 0 05/26/2023 3 Discontinu ed(End of Procedure) Doxycycline Hyclate 100 MG Oral CapsuleIndications: Bronchitis, complicated,Acute non-recurrent maxillary sinusitis Take 1 Capsule by mouth in the morning and 1 Capsule before bedtime. Do all this for 7 days. Take for 7 days. 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 ICD-10 update of inactive term ATTN DEFIC NONHYPERACT 08/17/2005 Allergic rhinitis 07/26/2002 documented as of this encounter (statuses as of 06/05/2023) Resolved Problems Problem Noted Date Diagnosed Date [...] as of this encounter (statuses as of 06/05/2023) Immunizations Name Administration Dates Next Due COVID-19 mRNA, LNP-s, No Pre serve, 2-Dose Series ([employer]) 04/09/2021,09/05/2020,08/15/2020 Covid-19, Mrna, Lnp-s, Pf, B ivalent, [...] as of this encounter Progress Notes * Sachin Clemens MD - 06/05/2023 4:25 PM EST Post Operative Appointment HPI: 68 year old female presents today for post op exam following anterior and posterior colporrhaphy, sling, cystoscopy FINAL PATHOLOGY: Final Diagnosis A. Vaginal mucosa, excision: Benign unremarkable squamous mucosa at 1555 No intra op or post op complications. Returns for 6 weeks post-op visit. Patient reports no problems. Bowel and bladder function have normalized. No MICKIE. Slower urinary stream, but feels empty Denies pain Denies fevers or chills. Denies any problems with wound. Denies any vaginal bleeding or discharge. Denies lower extremity swelling. PE: BP .vs General: Pleasant, well nourished, NAD, A&O x 3 Abdomen: Soft and nontender, negative masses, no organomegaly Incision: No induration or fluctuance or erythema. Lower extremities: non-tender and non-edematous Pelvic: Vaginal mucosa healing well. Sutures in place. No evidence of infection, abscess/collection or separation PVR 80 cc by bladder scan Impression: - Healing well - Kegel exercises - Restart topical estrogen cream Follow up in 6 months. Sachin Clemens MD documented in this encounter Nursing Notes * Shelia Sawyer LPN - 06/05/2023 4:16 PM EST Patient presents to the clinic for post op visit. documented in this encounter Plan of Treatment Upcoming Encounters Date Type Department Care Team (Late st Contact Info) Description 06/06/2023 3:00 PM EST Office Visit Sleep Disorders Ctr [facility] [address] [place] [place] [phone] Genesis Fraga DO [address] [address] 06/15/2023 10:00 AM EST Appointment Radiology, [facility] [address] [facility] [place] [address] 06/27/2023 12:50 PM EST Office Visit Dermatology, [place] [address] [place] [address] Agnieszka Cruz PA-C [address] [place] [address] 07/18/2023 5:40 PM EST Office Visit Family Practice [facility] [address] [place] [address] Eric Spencer, [address] [facility] [place] [address] 07/26/2023 8:40 AM EST Office Visit Rheumatology [place] [address] [address] [place] [address] Imer Quijano MD [facility] [employer] [place] [address] 11/22/2023 9:00 AM EDT Nurse Only Ancillary [facility] [place] [address] [facility] [place] [address] Im, Nurse Annual Wellness [facility] [address] [facility] [place] [address] 02/26/2024 9:45 AM EDT [facility] [place] [address] [place] [address] Harris Lanza MD 200 [facility] [place] [address] Scheduled Procedures Name Priority Associated Diagnoses Date/Ti me COLONOSCOPY FLEXIBLE PROXIMAL DIAGNOSTIC Recall History of colon polyps Health Maintenance Due Date Last Done Comments Albumin/Creatinine Ratio 01/24/2023 082 022, 12/04/2020, 06/05/2020, Additional history exists HbA1c 05/03/2023 10/31/2022, 12/0 12/2021, 01/24/2022, Additional history exists COVID-19 Vaccine ( - 2022- season) 2023 04/20/2023, 04/09/2021, 09/05/2020, Additional history exists Diabetic Eye Exam 08/12/2023 08/12/2022, , 03/05/2021, Additional history exists Mammogram 08/12/2023 08/12/2022, 07/21, 08/07/2020, Additional history exists Depression Screening 11/17/2023 11/16/2022 Diabetic Foot Exam 11/17/2023 11/16/2022, 0 11/16/2022, 07/01/2021, Additional history exists GFR 04/20/2024 04/20/2023, 03/20, 10/31/2022, Additional history exists TSH 04/20/2024 04/20/2023, 0801/2022, [...] this encounter Medical Devices Implanted Type Area Machine Slat Basket Maker Device Identifier Shelf Expiration Date Model / Serial / Lot Sling Comfort [employer] - [id number] Implanted:Qty: 1 on 04/28/2023 by Sachin Clemens MD at OR [facility] N/A: Vagina [employer] 02/25/2024 [id number] / [id number] documented as of this encounter Visit Diagnoses Diagnosis Cystocele, midline- Primary Rectocele Stress incontinence Female stress incontinence documented in this encounter Advance Directives Latest Code Status on File Code Status Date Activated Date Inactivated Comments Full Code 04/28/2023 9:21 AM 04/28/2023 5:40 PM Thi s order reflects the patients wishes and were consensually agreed upon. Question Answer Comments Discussion of Advance Directives occurred with: Not Discussed due to patient's condition Care Teams Outside Plant Technician Relationship Specialty Start Date End Date Eric Spencer DO [address] [place] [address] PCP - General Family Medicine 05/03/18 documented as of this encounter
--- OUTSIDE RECORDS SUMMARY | 2023-07-28 14:04 | External Medical Summary | Summary of Care ---
Author Name Unknown Organization [facility] Address [address] [place] [address] Phone [phone] Care Team Providers Care Paper Tester Name Role Phone Eric Spencer DO Primary Care Provider [phone] Encounter Details Date Type Department Care Team (Late st Contact Info) Description 04/24/2023 Result Scan Unspecified Department <No scans attached> Allergies Active Allergy Reactions Criticality Noted Date Comments Pradeep Inhibitors 04/27/2004 cough Bactrim Abdominal pain 09/01/2008 Abdomen pain Metformin Diarrhea 04/26/2018 Penicillins 11/10/1999 rash Sulfamethoxazole Unknown 12/10/2020 Trimethoprim Unknown 12/10/2020 documented as of this encounter (statuses as of 06/02/2023) Medications Medication Sig Dispensed Refills Start Date [...] for Constipation. 14 Packet 0 04/28/2023 Active documented as of this encounter (statuses as of 06/02/2023) Active Problems Problem Noted Date Diagnosed Date ASCUS of cervix with negative high risk HPV 03/20 Irritable bowel syndrome wit h both constipation and diarrhea 05/25/2022 History of 2019 novel coronavirus disease (COVID -19) 07/01/2021 Type 2 diabetes mellitus with diabetic dermatiti s 11/06/2018 Encounter for long-term (current) use of medicat ions 05/03/2018 Rheumatoid arthritis of [facility] with negative rheumatoid factor 08/17/2017 Essential hypertension with goal blood pressure less than 140/90 12/15/2015 Hypothyroidism 04/15/2015 Idiopathic urticaria 07/13/2012 Type 2 diabetes mellitus wit h hemoglobin A1c goal of less than 7.0% 04/16/2009 Overview: Per Diabetes Taxonomy. ICD-10 update of inactive term ATTN DEFIC NONHYPERACT 08/17/2005 Allergic rhinitis 07/26/2002 documented as of this encounter (statuses as of 06/02/2023) Resolved Problems Problem Noted Date Diagnosed Date [...] as of this encounter (statuses as of 06/02/2023) Immunizations Name Administration Dates Next Due COVID-19 mRNA, LNP-s, No Pre serve, 2-Dose Series ([employer]) 04/09/2021,09/05/2020,08/15/2020 Covid-19, Mrna, Lnp-s, Pf, B ivalent, [...] 06/05/2023 4:10 PM EST Office Visit Urogynecology [facility] [address] [address] Sachin Clemens MD [address] [address] 06/06/2023 3:00 PM EST Office Visit Sleep Disorders [facility] [address] [phone] Genesis Fraga DO [address] [address] 06/15/2023 10:00 AM EST Appointment Radiology, [facility] [address] [place] [address] 06/27/2023 12:50 PM EST Office Visit Dermatology, Tanna Christianson [address] [address] Agnieszka Cruz PA-C [address] [address] 07/18/2023 5:40 PM EST [facility] [address] [place], [place] [address] Eric Spencer, [address] [place] [address] 07/26/2023 8:40 AM EST Office Visit Rheumatology [place] [id number] [facility] [place] [address] [place] [address] [place] [address] [place] [address] 11/22/2023 9:00 AM EDT Nurse Only Ancillary [facility] [place] [address] [facility] [place] [address] Im, Nurse Annual Wellness [facility] [address] [facility] [place] [address] 02/26/2024 9:45 AM EDT Office Visit Dermatology [facility] [place] [address] [facility] [place] [address] Harris Lanza MD [address] [facility] [place] [address] Scheduled Procedures Name Priority Associated Diagnoses Date/Ti me COLONOSCOPY FLEXIBLE PROXIMAL DIAGNOSTIC Recall History of colon polyps Health Maintenance Due Date Last Done Comments Albumin/Creatinine Ratio 01/24/2023 022, 12/04/2020, 06/05/2020, Additional history exists HbA1c 05/03/2023 10/31/2022, 12/12/2021, 01/24/2022, Additional history exists COVID-19 Vaccine ( season) 2023 04/20/2023, 04/09/2021, 09/05/2020, Additional history exists Diabetic Eye Exam 08/12/2023 08/12/2022, , 03/05/2021, Additional history exists Mammogram 08/12/2023 08/12/2022, 07/21, 08/07/2020, Additional history exists Depression Screening 11/17/2023 11/16/2022 Diabetic Foot Exam 11/17/2023 11/16/2022, 0 11/16/2022, 07/01/2021, Additional history exists GFR 04/20/2024 04/20/2023, 03/20, 10/31/2022, Additional history exists TSH 04/20/2024 04/20/2023, 01/2022, 12/04/2020, Additional history exists COLONOSCOPY-EVERY 3 [...] this encounter Medical Devices Implanted Type Area Semiconductor Technician Device Identifier Shelf Expiration Date Model / Serial / Lot Danieling Comfort Rodriguez - [id number] Implanted:Qty: 1 on 04/28/2023 by Sachin Clemens MD at OR [facility] N/A: Vagina [employer] 02/25/2024 [id number] / [id number] documented as of this encounter Procedures Procedure Name Priority Date/Time Associated Diagnosis Comments RADIOLOGY SCANNED RESULT 04/24/2023 documented in this encounter Results * RADIOLOGY SCANNED RESULT (04/24/2023) 04/24/2023 No Physician Data Unknown DIAGNOSTIC RAD IOLOGY SERVICES documented in this encounter Advance Directives Latest Code Status on File Code Status Date Activated Date Inactivated Comments Full Code 04/28/2023 9:21 AM 04/28/2023 5:40 PM Thi s order reflects the patients wishes and were consensually agreed upon. Question Answer Comments Discussion of Advance Directives occurred with: Not Discussed due to patient's condition Care Teams Paper Tester Relationship Specialty Start Date End Date Eric Spencer DO [address] [place] [address] PCP - General Family Medicine 05/03/18 documented as of this encounter
[2023-07-28] MEDS ORDERED: GLUCOSE 40% GEL 15 GM TUBE PO PRN (15:04)
[2023-07-28] MEDS ORDERED: GLUCOSE 10 TAB/TUBE PO PRN (15:04)
[2023-07-28] MEDS ORDERED: CARBOHYDRATES FOR HYPOGLYCEMIA PO PRN (15:04)
[2023-07-28] MEDS ORDERED: DEXTROSE 50% 50 ML SYRINGE IV PRN (15:04)
[2023-07-28] MEDS ORDERED: PHARMACY GLYCEMIC MGMT CONSULT PRN (15:04)
[2023-07-28] MEDS ORDERED: GLUCAGON FOR INJ 1 MG VIAL SQ PRN (15:04)
[2023-07-28 15:11] LABS: Appearance Urine Cloudy (Clear); Bacteria Urine Automated Negative (Negative); Bilirubin Urine Negative (Negative); Blood Urine Negative (Negative); Color Urine Dark Yellow; Epithelial Cell Urine Auto >30 /lpf (0-5); Glucose Urine UA Negative (Negative); Ketones Urine 2+ (Negative); Leukocyte Esterase Urine Trace (Negative); Nitrite Urine Negative (Negative); Protein Urine Negative (Negative); RBC Urine Automated 0-4 /hpf (0-4); Specific Gravity Urine 1.026 (1.000-1.030); Urobilinogen Urine Negative (Negative)
[2023-07-28 16:02] LABS: BUN Creatinine Ratio 17.9 (10-20); Calcium 7.7 mg/dl (8.6-10.3); Creatinine Clr Calc Pharmacy 82.4 ml/min; Est GFR (African American) 103.9 ml/min; Est GFR (Non-African American) 89.7 ml/min; Potassium 3.6 mmol/L (3.5-5.1)
[2023-07-28] MEDS: MAGNESIUM SULFATE / D5W 1 GM/100 ML BAG IV SCH (16:04)
[2023-07-28] MEDS: SODIUM CHLORIDE 0.9% 1,000 ML IV SCH (16:04)
[2023-07-28] MEDS: POTASSIUM CHLORIDE CRTAB 20 MEQ TABCR PO STA (16:04)
[2023-07-28 16:08] LABS: Troponin I High Sensitivity 6.3 pg/ml (0-14)
[2023-07-28 16:17] LABS: Thyroid Stimulating Hormone 0.954 uIu/ml (0.300-4.500)
[2023-07-28] MEDS: METOPROLOL SUCC 50MG EXT REL TAB PO SCH (16:20)
[2023-07-28] MEDS: metHOTREXate sodium 2.5 MG TAB PO SCH (16:20)
[2023-07-28] MEDS ORDERED: STAT IV/IM STA (17:27)
[2023-07-28] MEDS: INSULIN ASPART PER UNIT CHARGE SC SCH ×2 (18:44→23:43)
[2023-07-28] MEDS: LANTUS PER UNIT CHARGE SQ ONE (20:31)
[2023-07-28] MEDS: CALCIUM GLUCONATE 10% 1,000 MG in SODIUM CHLOR 0.9% MINI-B 50 ML IV ONE (21:17)
[2023-07-28] MEDS: ACETAMINOPHEN 325 MG TAB PO PRN (22:17)
[2023-07-28] MEDS: cefTRIAXone SODIUM 2,000 MG in DEXTROSE 5 % MINI-B 50 ML IV SCH (23:22)
[2023-07-29 05:50] LABS: Hematocrit (blood only) 32.9 % (37.0-47.0); Hemoglobin 11.3 g/dl (12.0-16.0); Mean Corpuscular Hemoglobin 31.3 pg (25.0-34.0); Mean Corpuscular Hgb Conc 34.3 g/dL (32.0-36.0); Mean Corpuscular Volume 91.1 fL (80.0-100.0); Mean Platelet Volume 10.1 fL (9.4-12.4); Platelet Count 128 K/uL (130-400); RDW Coefficient of Variation 14.4 % (11.5-14.5); RDW Standard Deviation 47.8 fL (36.4-46.3); Red Blood Count 3.61 M/uL (4.20-5.40); White Blood Count 5.82 K/ul (4.8-10.8)
[2023-07-29 06:12] LABS: Albumin Globulin Ratio 1.4 (0.9-2); Albumin Level 3.4 gm/dl (3.4-5.0); BUN Creatinine Ratio 16.4 (10-20); Calcium 8.1 mg/dl (8.6-10.3); Creatinine Clr Calc Pharmacy 93.5 ml/min; Est GFR (African American) 107.2 ml/min; Est GFR (Non-African American) 92.5 ml/min; Globulin 2.5 gm/dl (2.5-4.0); Magnesium 2.5 mg/dl (1.7-2.4); Phosphorus 2.8 mg/dl (2.5-4.9); Potassium 3.7 mmol/L (3.5-5.1); Total Protein 5.9 gm/dl (6.0-8.3)
--- NOTE | 2023-07-29 07:14 | Electrocardiogram Report ---
Test Reason : Blood Pressure : / mmHG Vent. Rate : 111 BPM Atrial Rate : 111 BPM P-R Int : 156 ms QRS Dur : 088 ms QT Int : 364 ms P-R-T Axes : 052 003 -23 degrees QTc Int : 495 ms Sinus tachycardia with occasional Premature ventricular complexes and atrial ectopic beats Abnormal ECG When compared with ECG of 06-JUN-2022 12:03, Premature ventricular complexes are now Present Confirmed by Mehdi Espana ([id number]) on 07/29/2023 7:13:54 AM Referred By: REFERRED SELF Confirmed By:Lester Espana
[2023-07-29 08:07] LABS: Estimated Average Glucose 169 mg/dl; Hemoglobin A1C 7.5 % (4.5-5.6)
[2023-07-29] MEDS: FOLIC ACID 1 MG TAB PO SCH (09:33)
[2023-07-29] MEDS: LEVOTHYROXINE SODIUM 100 MCG TABLET PO SCH (09:34)
--- NOTE | 2023-07-29 09:47 | Pharmacy Report ---
Pharmacy Glycemic Short Note 2 - Date of Service July 29, 2023 - Glycemic Short BSG Results (Last 24 hours): 07/28/23 07/28/23 07/28/23 11:25 15:25 16:52 Glucose 204 H 176 H POC Glucose 172 H 07/28/23 07/28/23 07/29/23 21:13 23:35 04:33 Glucose POC Glucose 97 179 H 118 H 07/29/23 07/29/23 04:57 08:01 Glucose 126 H POC Glucose 133 H OUTPATIENT ANTIDIABETIC REGIMEN: * None * HbA1c: 7.5% (07/29/23) ASSESSMENT: * 68 yo F admitted on 07/28/23 secondary to sepsis. Pharmacy has been consulted to assist with inpatient glycemic management. Patient is a Type 2 diabetic as an outpatient. Please refer to outpatient regimen and most recent HbA1c above. * Lantus dose of 11 units was ordered yesterday but never given by nursing staff. Event report filed. * Patient received 12 units of bolus insulin yesterday evening. BSGs dropped after each Novolog dose (172-->97 and 179-->118). Will loosen Novolog parameters this AM. * Will hold basal as fasting BSG is 133 mg/dL this AM which is at goal. If BSG trends up with lunch today, may add a small basal dose. * Await paraeducator's assessment as patient likely should be discharged on Metformin which we can start inpatient based on most recent A1c. PLAN FOR INPATIENT GLYCEMIC CONTROL: * Basal insulin * Hold * Bolus insulin * NovoLog per scale ACHS or Q6hrs while NPO * Goal Range: Low 110 mg/dL - High 140 mg/dL * Correction Factor: 35 mg/dL/unit * Nutritional / Prandial insulin per carb ratio of 1 unit per 12 grams CHO consumed
--- NOTE | 2023-07-29 15:29 | Hospitalist Progress Note ---
Date of Service July 29, 2023 Assessment & Plan (1) Sepsis due to urinary tract infection: (2) Hypomagnesemia: (3) Hypocalcemia: (4) Hypertension: (5) Hypokalemia: (6) Rheumatoid arthritis: (7) Diabetes mellitus type 2, noninsulin dependent: (8) TAMAR (obstructive sleep apnea): (9) Hypothyroidism: Plan Per admitting service notes with addendum: Ms. Hardy is a 68 year old female that presents to the ED with reports of feeling nauseated and having chills; felt like she had a fever. Her found her sitting in the shower trying to get 'warmed up'. She did not eat anything this morning. She only took her thyroid medication today. [facility] with signs and symptoms of urinary tract infection was prescribed Macrobid for 7 days. She took her Macrobid last night and went to bed fine. This morning, she reports feeling nauseous, no vomiting.Historically, she has been experiencing incontinence and saw UroGyn at [facility] and proceeded with a rectal and bladder prolapse. Over the last 2-3 weeks, she notices that her symptoms have become worse. She reports more incontinence with short walking . Upon arrival to the ED she was tachycardic and febrile with heart rate up to 122. She received fluid resuscitation 2 L with response heart rate down to 110. Additional past medical history includes rheumatoid arthritis (diagnosed 2016; takes Methotrexate), HTN, hypothyroidism .She drinks one cup of coffee per day. NO history of heart attack or stroke. She does admit that she does not follow her doctors recommendations too well.In the ED hypok+ 3.3, hypomag 1.3, bio fire negative. Blood cultures and urinalysis pending. Lactate 2.2, WBC 9.48. ECG NSR with Borderline criteria for Inferior infarct are now Present compared with ECG in 2019. T wave inversion now evident in Anterior leads. Patient is presenting with urosepsis symptoms. She does meet sepsis criteria with tachycardia, fevers, elevated lactate and procal levels. Will place on IV antibiotics and adjust based on urine culture and blood culture. Consider abdominal/pelvis CT if no improvement. Patient reports significant personal stress and she does have complaints of mild intermittent anterior chest wall pressure with left shoulder radiation. Will obtain a troponin to initiate cardiac workup. ECG NSR with Borderline criteria for Inferior infarct are now Present compared with ECG in 2019. T wave inversion now evident in Anterior leads Patient appears normal sinus rhythm on monitor however I can appreciate an S3/S4 on auscultation; will repeat ECG; ECG indicates . Additionally replace electrolyte imbalance, patient serum glucose this morning was 204 without breakfast and A1c yesterday was 7.9. Patient does not take any antidiabetic medications. Will place on a sliding scale coverage while here with visual educator consult. Urinary tract infection, E. coli Possible sepsis Acute seen as outpatient 07/27 and started on Macrobid, last dose scheduled to be 08/03 Meets sepsis criteria with tachycardia, febrile, elevated lactate No leukocytosis; lactate 2.2 trended down to 1.8 with resuscitation Procalcitonin elevated 1.68 suggestive of hyper inflammatory phase of sepsis, along with lactate Blood cultures pendingL Received 2LNSB in ED; after second liter will place on gentle maint. fluids. Was started on Cefepime in ED; switch to Rocephin and adjust based on culture results Did receive a dose of antibiotics prior to urine culture being obtained If no improvement consider abdomen/pelvis CT 07/29 Afebrile, clinically improving Urine culture from [facility] outpatient: E. coli, culture and sensitivities pending Urine culture from [facility]: Pending Blood cultures: Pending No CVA tenderness on exam, pyelonephritis unlikely Follow-up cultures Continue IV ceftriaxone day #2 Electrolyte abnormalities: Acute Hypokalemia; Serum K+ 3.3; replete with 40 mEq p.o. Hypomagnesemia; serum Mg+1.3; will replace with 4 G IV and check with AM labs Hypocalcemia; serum Calcium 7.7; albumin 4.3; replace with 1G Ca+ Gluconate and recheck in AM. Check Vitamin D level. Resolved Diabetes Mellitus: Chronic Last A1C 214: 7.9 Was doing diet modifications for months, and has lost weight was on Glipizide for a few months but stopped taking it Place on SSI and arrange for visual educator A1c 7.5 Will need to resume glipizide HTN: Chronic Takes metoprolol; continue Does have S3 appreciated on exam; does not report palpitations ECG suggestive of new inferior changes compared to 2019 anterior chest pain has resolved; troponin negative will obtain repeat ECG 07/29 No chest pain Troponins negative Echocardiogram pending Rheumatoid arthritis: Chronic Follows with Dr. Qureshi with rheumatology Takes methotrexate every Monday; taken today; will hold moving forward due to sepsis and immunocompromised 07/27/23; LFTs; AST 19, ALT 17, AlkPhos 89 Hold methotrexate until antibiotic course completed Hypothyroidism: Chronic Takes levothyroxine; continue Last TSH 04/20/23: 3.32; will obtain one while here. TAMAR: Chronic Just picked up her CPAP yesterday after her recent sleep study Arrange for CPAP here in hospital Disposition: PCP: Dr. Spencer Code Status: Full Code VTE Prophylaxis: Teds/SCDs for now Anticipate discharge to home when medically stable, hopefully with p.o. antibiotic Admission and Anticipated Discharge Date Admission Date: July 28, 2023 Subjective Follow-up for sepsis, UTI, etc. Seen sitting up in bed, comfortable, not in distress States she feels improved compared to yesterday No nausea, weakness improving No abdominal pain, flank pain, back pain Urinary urgency also improving No fevers or chills Chest pain resolved No other new symptoms Review of Systems Review of Systems: all noted and negative except for above Physical Exam Physical Exam: General- oriented x 3, not in distress, speaks in sentences with no effort or accessory muscle use Eyes- anicteric Neck- no JVD Lungs- clear breath sounds bilaterally, no crackles or wheeze Heart- normal rate, regular rhythm; no murmurs Abdomen- normal bowel sounds, nondistended, soft, no tenderness No CVA tenderness Extremities- no pretibial edema, no calf tenderness Neuro- alert, oriented x 3; no gross focal neurologic deficits Skin- warm & dry Results & Data Results & Data Vital Signs (Past 12 Hours) Vital Signs Temp Pulse Pulse Resp BP BP Pulse Ox 07/29/23 11:46 36.9 C 76 18 153/81 H 98 07/29/23 08:24 36.8 C 80 18 166/99 H 96 07/29/23 07:24 81 07/29/23 03:46 37.0 C 79 18 113/68 96 O2 Del Method 07/29/23 11:46 Room Air 07/29/23 08:24 Room Air 07/29/23 07:24 07/29/23 03:46 Room Air all noted and reviewed including below
[2023-07-30 09:22] LABS: Basophils # (auto) 0.01 K/uL (0.00-0.20); Basophils % (auto) 0.2 %; Eosinophils # (auto) 0.23 K/uL (0.00-0.50); Eosinophils % (auto) 4.3 %; Hematocrit (blood only) 36.1 % (37.0-47.0); Hemoglobin 12.6 g/dl (12.0-16.0); Immature Granulocytes # (auto) 0.01 K/uL (0.01-0.20); Immature Granulocytes % (auto) 0.2 %; Lymphocytes # (auto) 1.05 K/uL (1.20-3.40); Lymphocytes % (auto) 19.7 %; Mean Corpuscular Hgb Conc 34.9 g/dL (32.0-36.0); Mean Corpuscular Volume 88.9 fL (80.0-100.0); Mean Platelet Volume 9.7 fL (9.4-12.4); Monocytes # (auto) 0.25 K/uL (0.11-0.59); Monocytes % (auto) 4.7 %; Neutrophils # (auto) 3.77 K/uL (1.40-6.50); Neutrophils % (auto) 70.9 %; Platelet Count 152 K/uL (130-400); RDW Coefficient of Variation 14.2 % (11.5-14.5); RDW Standard Deviation 45.5 fL (36.4-46.3); Red Blood Count 4.06 M/uL (4.20-5.40); White Blood Count 5.32 K/ul (4.8-10.8)
[2023-07-30 09:27] LABS: BUN Creatinine Ratio 16.1 (10-20); Calcium 8.8 mg/dl (8.6-10.3); Creatinine Clr Calc Pharmacy 101.8 ml/min; Est GFR (African American) 110.3 ml/min; Est GFR (Non-African American) 95.1 ml/min; Potassium 3.9 mmol/L (3.5-5.1)
--- NOTE | 2023-07-30 12:36 | Hospitalist Progress Note ---
Date of Service July 30, 2023 Assessment & Plan (1) Sepsis due to urinary tract infection: (2) Hypomagnesemia: (3) Hypocalcemia: (4) Hypertension: (5) Hypokalemia: (6) Rheumatoid arthritis: (7) Diabetes mellitus type 2, noninsulin dependent: (8) TAMAR (obstructive sleep apnea): (9) Hypothyroidism: Plan Per admitting service notes with addendum: Ms. Hardy is a 68 year old female that presents to the ED with reports of feeling nauseated and having chills; felt like she had a fever. Her found her sitting in the shower trying to get 'warmed up'. She did not eat anything this morning. She only took her thyroid medication today. She went to [facility] care worse yesterday with signs and symptoms of urinary tract infection was prescribed Macrobid for 7 days. She took her Macrobid last night and went to bed fine. This morning, she reports feeling nauseous, no vomiting.Historically, she has been experiencing incontinence and saw UroGyn at [facility] and proceeded with a rectal and bladder prolapse. Over the last 2-3 weeks, she notices that her symptoms have become worse. She reports more incontinence with short walking . Upon arrival to the ED she was tachycardic and febrile with heart rate up to 122. She received fluid resuscitation 2 L with response heart rate down to 110. Additional past medical history includes rheumatoid arthritis (diagnosed 2016; takes Methotrexate), HTN, hypothyroidism .She drinks one cup of coffee per day. NO history of heart attack or stroke. She does admit that she does not follow her doctors recommendations too well.In the ED hypok+ 3.3, hypomag 1.3, bio fire negative. Blood cultures and urinalysis pending. Lactate 2.2, WBC 9.48. ECG NSR with Borderline criteria for Inferior infarct are now Present compared with ECG in 2019. T wave inversion now evident in Anterior leads. Patient is presenting with urosepsis symptoms. She does meet sepsis criteria with tachycardia, fevers, elevated lactate and procal levels. Will place on IV antibiotics and adjust based on urine culture and blood culture. Consider abdominal/pelvis CT if no improvement. Patient reports significant personal stress and she does have complaints of mild intermittent anterior chest wall pressure with left shoulder radiation. Will obtain a troponin to initiate cardiac workup. ECG NSR with Borderline criteria for Inferior infarct are now Present compared with ECG in 2019. T wave inversion now evident in Anterior leads Patient appears normal sinus rhythm on monitor however I can appreciate an S3/S4 on auscultation; will repeat ECG; ECG indicates . Additionally replace electrolyte imbalance, patient serum glucose this morning was 204 without breakfast and A1c yesterday was 7.9. Patient does not take any antidiabetic medications. Will place on a sliding scale coverage while here with data warehousing manager consult. Urinary tract infection, E. coli Possible sepsis Acute seen as outpatient 07/27 and started on Macrobid, last dose scheduled to be 08/03 Meets sepsis criteria with tachycardia, febrile, elevated lactate No leukocytosis; lactate 2.2 trended down to 1.8 with resuscitation Procalcitonin elevated 1.68 suggestive of hyper inflammatory phase of sepsis, along with lactate Blood cultures pendingL Received 2LNSB in ED; after second liter will place on gentle maint. fluids. Was started on Cefepime in ED; switch to Rocephin and adjust based on culture results Did receive a dose of antibiotics prior to urine culture being obtained If no improvement consider abdomen/pelvis CT 07/29 Afebrile, clinically improving Urine culture from [facility] outpatient: E. coli, culture and sensitivities pending Urine culture from [facility]: Pending Blood cultures: Pending No CVA tenderness on exam, pyelonephritis unlikely Follow-up cultures Continue IV ceftriaxone day #2 07/30 Urine culture from [facility] outpatient clinic: E. coli, sensitive to cephalosporins, fluoroquinolones Urine culture from [facility]: Negative so far Blood cultures: Negative so far Clinically improving although still having some urinary urgency Continue IV ceftriaxone day #3 Continue to monitor closely Electrolyte abnormalities: Acute Hypokalemia; Serum K+ 3.3; replete with 40 mEq p.o. Hypomagnesemia; serum Mg+1.3; will replace with 4 G IV and check with AM labs Hypocalcemia; serum Calcium 7.7; albumin 4.3; replace with 1G Ca+ Gluconate and recheck in AM. Check Vitamin D level. Resolved Diabetes Mellitus: Chronic Last A1C : 7.9 Was doing diet modifications for months, and has lost weight was on Glipizide for a few months but stopped taking it Place on SSI and arrange for data warehousing manager A1c 7.5 Will need to resume glipizide HTN: Chronic Takes metoprolol; continue Does have S3 appreciated on exam; does not report palpitations ECG suggestive of new inferior changes compared to 2018 anterior chest pain has resolved; troponin negative will obtain repeat ECG 07/29 No chest pain Troponins negative Echocardiogram pending 07/30 Echocardiogram: EF 60 to 65% Left atrial wall motion is normal Grade 1 diastolic dysfunction No significant valvular pathology Blood pressure mildly elevated Likely secondary to infection, stress Will hold off on adding a second antihypertensive agent Will continue to monitor closely, Rheumatoid arthritis: Chronic Follows with Dr. Qureshi with rheumatology Takes methotrexate every Monday; taken today; will hold moving forward due to sepsis and immunocompromised 07/27/23; LFTs; AST 19, ALT 17, AlkPhos 89 Hold methotrexate until antibiotic course completed Hypothyroidism: Chronic Takes levothyroxine; continue Last TSH 04/20/23: 3.32 TSH 0.95 TAMAR: Chronic Just picked up her CPAP yesterday after her recent sleep study Arrange for CPAP here in hospital Disposition: PCP: Dr. Spencer Code Status: Full Code VTE Prophylaxis: Encouraged to ambulate frequently SCDs Anticipate discharge home tomorrow Admission and Anticipated Discharge Date Admission Date: July 28, 2023 Subjective Follow-up for UTI, etc. Seen resting in bed, comfortable, no distress States she continues to feel improved overall Still having some urinary urgency No dysuria, hematuria No fevers or chills, flank pain, back or abdominal pain No nausea or vomiting No headache, dizziness No chest pain, shortness of breath No other new symptoms Review of Systems Review of Systems: all noted and negative except for above Physical Exam Physical Exam: General- oriented x 3, not in distress, speaks in sentences with no effort or accessory muscle use Eyes- anicteric Neck- no JVD Lungs- clear breath sounds bilaterally, no rales/wheezes Heart- normal rate, regular rhythm; no murmurs Abdomen- normal bowel sounds, nondistended, soft, nontender Extremities- no pretibial edema, no calf tenderness Neuro- alert, oriented x 3; no gross focal neurologic deficits Skin- warm & dry Results & Data Results & Data Vital Signs (Past 12 Hours) Vital Signs Temp Pulse Pulse Resp BP Pulse Ox O2 Del Method 07/30/23 09:00 78 07/30/23 04:00 37.0 C 83 18 152/87 H 96 Room Air all noted and reviewed including below
--- NOTE | 2023-07-31 10:03 | Pharmacy Report ---
Pharmacy Glycemic Sign Off Nt - Date of Service July 31, 2023 - Assessment & Plan ASSESSMENT: * Pharmacy was consulted by Lynette Adkins on 07/28 for glycemic control and to write orders per [facility] inpatient glycemic control protocol. * Major changes made by pharmacy to antidiabetic regimen include: * added novolog scale * Patient has been receiving 10-15 units of novolog each day * Please see recommendations for outpatient antidiabetic regimen below. PLAN FOR INPATIENT GLYCEMIC CONTROL: No changes needed to current regimen. * No basal insulin currently warranted * Continue NovoLog per scale ACHS/Q6hrs while NPO * Goal range = 110-140 mg/dl * CF = 35 mg/dl/unit * CR = 1 unit for ever 12 g CHO consumed * Pharmacy is signing off of glycemic consult and will no longer be making adjustments to inpatient regimen. Please feel free to re-consult if needed. Thank you.
--- NOTE | 2023-07-31 18:33 | Discharge Summary ---
Discharge Summary Date of Service July 31, 2023 Notes For Next Care Provider Medication Changes From Visit Cefdinir 300 mg p.o. twice daily Admission HPI Per Admitting Provider Ms. Hardy is a 68 year old female that presents to the ED with reports of feeling nauseated and having chills; felt like she had a fever with some chest pressure with radiation into her left shoulder. Her found her sitting in the shower trying to get 'warmed up'. She did not eat anything this morning. She only took her thyroid medication today. She went to [facility] worse yesterday with signs and symptoms of urinary tract infection was prescribed Macrobid for 7 days. She took her Macrobid last night and went to bed fine. This morning, she reports feeling nauseous, no vomiting. Historically, she has been experiencing incontinence and saw UroGyn at [facility] and proceeded with a rectal and bladder prolapse 'tack up' in Apr 2023. After the procedure, she had an indwelling catheter for three days. She was frustrated with her slow improvement. Over the last 2-3 weeks, she notices that her symptoms have become worse. She reports more incontinence with short walking . Upon arrival to the ED she was tachycardic and febrile with heart rate up to 122. She received fluid resuscitation 2 L with response heart rate down to 110. Additional past medical history includes rheumatoid arthritis (diagnosed 2016; takes Methotrexate), HTN, hypothyroidism .She drinks one cup of coffee per day. NO history of heart attack or stroke. She does admit that she does not follow her doctors recommendations too well. In the ED hypok+ 3.3, hypomag 1.3, bio fire negative. Blood cultures and urinalysis pending. Lactate 2.2, WBC 9.48. ECG NSR with Borderline criteria for Inferior infarct are now Present compared with ECG in 2019. T wave inversion now evident in Anterior leads. Reviewed documentation as an outpatient and a urine culture was sent yesterday however no results returned as of yet. Pt denies PRESTON, dizziness, SOB, palpitations, abdominal pain, tenderness, recent falls or trauma. On examination, Pt AAOx4 and able to answer questions appropriately, CN II-XII grossly intact, lung sounds CTA, (+) lower abdomen tenderness, euvolemic on exam. Patient is presenting with urosepsis symptoms. She does meet sepsis criteria with tachycardia, fevers, elevated lactate and procal levels. Will place on IV antibiotics and adjust based on urine culture and blood culture. Consider abdominal/pelvis CT if no improvement. Patient reports significant personal stress and she does have complaints of mild intermittent anterior chest wall pressure with left shoulder radiation. Will obtain a troponin to initiate cardiac workup. ECG NSR with Borderline criteria for Inferior infarct are now Present compared with ECG in 2019. T wave inversion now evident in Anterior leads Patient appears normal sinus rhythm on monitor however I can appreciate an S3/S4 on auscultation; will repeat ECG; ECG indicates . Additionally replace electrolyte imbalance, patient serum glucose this morning was 204 without breakfast and A1c yesterday was 7.9. Patient does not take any antidiabetic medications. Will place on a sliding scale coverage while here with commercial management accountant consult. Patient will be admitted for further evaluation and management. Please see A/P for further details. Admission Exam Per Admitting Provider Neuro: AAOx4, PERRLA, no aphagia, memory changes, CNII-XII grossly intact HEENT: head normocephalic, moist mucus membranes CV: S1/S2, (-) M/G/R, (-) edema, cap refill < 3 seconds Resp: Lungs CTA in all [place]. On RA GI: Abdomen LLQ/RLQ tender to palptation, S/ND, Ax4 bowel sounds, (-) CVA tenderness Musculoskeletal: 5/5 B/L UE strength, 5/5 B/L LE strength. No gait disturbance Skin: (-) rashes , (-) erythema. Psych: euthymic mood Principal Dx & Hospital Course #1 = Principal Diagnosis (1) Sepsis due to urinary tract infection: (2) Hypomagnesemia: (3) Hypocalcemia: (4) Hypertension: (5) Hypokalemia: (6) Rheumatoid arthritis: (7) Diabetes mellitus type 2, noninsulin dependent: (8) TAMAR (obstructive sleep apnea): (9) Hypothyroidism: Plan Urinary tract infection, E. coli Possible sepsis Acute seen as outpatient 07/27 and started on Macrobid, last dose scheduled to be 08/03 Meets sepsis criteria with tachycardia, febrile, elevated lactate No leukocytosis; lactate 2.2 trended down to 1.8 with resuscitation Procalcitonin elevated 1.68 suggestive of hyper inflammatory phase of sepsis, along with lactate No CVA tenderness on exam, pyelonephritis unlikely Urine culture from [facility] outpatient clinic: E. coli, sensitive to cephalosporins, fluoroquinolones Urine culture from [facility]: Negative x 48 hours Blood cultures: Negative x 48 hours Clinically improved, afebrile, urinary urgency improving Patient given 4 days of IV ceftriaxone Continue with Cefdinir 300 mg p.o. twice daily as an outpatient to complete 7- day course Electrolyte abnormalities: Acute Hypokalemia Hypomagnesemia Hypocalcemia Resolved Diabetes Mellitus: Chronic Last A1C : 7.9 Was doing diet modifications for months, and has lost weight was on Glipizide for a few months but stopped taking it A1c 7.5 Further discussion as an outpatient with PCP HTN: Chronic Takes metoprolol Chest discomfort resolved Troponins negative Echocardiogram EF 60 to 65% Left atrial wall motion is normal Grade 1 diastolic dysfunction No significant valvular pathology Blood pressure mildly elevated Likely secondary to infection, stress Will hold off on adding a second antihypertensive agent Monitor and follow-up as an outpatient Rheumatoid arthritis: Chronic Follows with Dr. Qursehi with rheumatology Takes methotrexate every Monday; taken today; will hold moving forward due to sepsis and immunocompromised 07/27/23; LFTs; AST 19, ALT 17, AlkPhos 89 Hold methotrexate until antibiotic course completed Hypothyroidism: Chronic Takes levothyroxine; continue Last TSH 04/20/23: 3.32 TSH 0.95 TAMAR: Chronic Just picked up her CPAP yesterday after her recent sleep study Arrange for CPAP here in hospital Disposition: Discharge to home PCP follow-up in 1 week Discharge Exam General- oriented x 3, not in distress, speaks in sentences with no effort or accessory muscle use Eyes- anicteric Neck- no JVD Lungs- clear breath sounds bilaterally, no rales/wheezes Heart- normal rate, regular rhythm; no murmurs Abdomen- normal bowel sounds, nondistended, soft, nontender no CVA tenderness Extremities- no pretibial edema, no calf tenderness Neuro- alert, oriented x 3; no gross focal neurologic deficits Skin- warm & dry Updated Medication List Medication Instructions Recorded Confirmed Type cetirizine 10 mg tablet (Zyrtec) 10 mg PO DAILY PRN Allergy Symptoms 02/24/18 07/28/23 History folic acid 1 mg tablet 1 mg PO [id number] 02/24/18 07/28/23 History methotrexate sodium 2.5 mg tablet 15 mg PO WK 02/24/18 07/28/23 History metoprolol succinate 50 mg 50 mg PO QAM 02/24/18 07/28/23 History tablet,extended release 24 hr cholecalciferol (vitamin D3) 25 25 mcg PO QAM 02/15/22 07/28/23 History mcg (1,000 unit) tablet (Vitamin D3) [id number] C 250 2 tab PO QAM 02/15/22 07/28/23 History mg-herbal no.124 11.66 mg chewable tablet (Airborne Gummy) levothyroxine 100 mcg tablet 100 mcg PO QAM 07/28/23 07/28/23 History omega 8-nwy-tti-fish oil 900 1 cap PO DAILY 07/28/23 07/28/23 History mg-1,400 mg capsule,delayed release cefdinir 300 mg capsule 300 mg PO BID 4 days #8 caps 07/31/23 Rx Hospital Stay Data Consultations 07/28/23 12:57 ED Decision to Admit Stat Pending Results Patient Have Any Pending Studies at Discharge: No Discharge Instructions Given to Patient (Per Discharging Provider) PLEASE REFER TO YOUR NEW MEDICATION LIST AND FOLLOW INSTRUCTIONS CAREFULLY. YOUR NEW MEDICATIONS INCLUDE: CEFDINIR- antibiotic for UTI Please take a probiotic daily for at least 2 weeks (Uniplaces Brand) recommended. PLEASE CALL YOUR PRIMARY CARE PHYSICIAN OR RETURN TO THE ER IF WITH WORSENING OF SYMPTOMS, INCLUDING fever/chills, abdominal/flank/back pain, diarrhea, etc FOLLOW UP WITH PRIMARY CARE PHYSICIAN OUTLINED ABOVE. TAKE CARE. Total Time Total Time Spent Total Time Spent (In Minutes): >30 minutes
== END 2023-07-31 15:26 | disposition home or self-care (01) | DRG 872 ==
LOC: ED 10:29 → EDINP 13:14 → SUATTDRO 13:14 → 2W 15:05